=== PATIENT | male | born 1965 | race Caucasian/White ===

== ENCOUNTER 2018-08-07 10:28 | Inpatient (IN) | payer MEDICAID ==
--- NOTE | 2018-08-07 10:45 | EDPHY ---
H & P Time Seen by Provider: 08/07/18 10:43 HPI/ROS: CHIEF COMPLAINT: Altered mental status HISTORY OF PRESENT ILLNESS: The patient is brought into the emergency department by paramedics after he was found acutely altered by his brother this morning. The patient reportedly only has a history of hypertension and takes hydrochlorothiazide. There is very limited history available by EMS. The patient is unable to provide any history as he is confused and altered upon arrival. 11:00 a.m. I did obtain additional history from the patient's brother. He reportedly was having lethargy yesterday and spent most of the day in bed. The patient was conversant throughout the night however became more altered about 2: 00 a.m. In the morning. The patient does have a history of drinking heavily. The patient had not had a fever, cough, vomiting prior to today. The patient does in fact take hydrochlorothiazide as a sole medication for hypertension. REVIEW OF SYSTEMS: A comprehensive 10 point review of systems is unobtainable secondary to his altered mental status Source: Family, EMS Exam Limitations: No limitations - Medical/Surgical History PMH: Past medical history: Reported hypertension - Family History Significant Family History: No pertinent family hx - Social History Smoking Status: Unknown if ever smoked Alcohol Use: Heavy - Physical Exam Exam: General Appearance: Confused male, encephalopathic Eyes: Pupils equal and round no pallor or injection ENT, Mouth: Dry mucous membranes Respiratory: There are no retractions, lungs are clear to auscultation Cardiovascular: Regular rate and rhythm Gastrointestinal: Abdominal distension in tenderness noted diffusely Neurological: Withdrawals to pain all 4 extremities, nonverbal, unable to cooperative with cranial nerve exam Skin: Warm and dry, no rashes Musculoskeletal: Neck is supple nontender Extremities: No gross deformity Constitutional: Initial Vital Signs Temperature (C) 31 C L 08/07/18 10:58 Heart Rate 63 08/07/18 10:58 Respiratory Rate 20 08/07/18 10:58 Blood Pressure 77/39 L 08/07/18 10:58 O2 Sat (%) 99 08/07/18 10:58 O2 Delivery Mode Non-Rebreather Mask O2 (L/minute) 15 Allergies/Adverse Reactions: Unable to Assess Allergy (Verified 08/07/18 12:11) Home Medications: Medication Instructions Recorded Triamterene-Hctz 37.5-25 mg Tb 08/07/18 Medical Decision Making - Diagnostics Imaging Results: Imaging Impressions Head CT 08/07/18 10:32 Impression: Negative. 2. CT Head Without Contrast History: Altered mental status. Patient found down. Technique: Soft tissue and bone window evaluation is performed. Dose reduction techniques were utilized. Images are transferred to the 3-D workstation were a 3 -D model is created and photographed in order to exclude occult skull or facial bone fracture, not visible on axial imaging.. Findings: There is cerebral atrophy, somewhat greater than would expect for a typical 53-year-old male. There is no evidence for hemorrhage, mass lesion, acute infarction or midline shift. Ventricular size is normal and is consistent with the sulci. There is no evidence of a subdural hematoma. The ambient cistern is patent. Bone window evaluation does not show evidence of a fracture or pneumocephalus. The paranasal and mastoid sinuses and both middle ears are normally aerated. 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 Otherwise negative. Is this patient an EtOH abuser? 3. CT Abdomen and Pelvis Without Contrast History: Patient found down, altered mental status, high creatinine, hyperglycemia Technique: Ultrathin ultrafast [address] through the abdomen and pelvis without contrast. Dose reduction techniques were utilized. Findings: There is a small amount of consolidation, mucous plugging and bronchial wall thickening at the right lung base without pleural effusion or adjacent rib fracture. There is fluid in a distended distal esophagus. The stomach is not overly distended. There is subtle dirty fat within the mesentery that may represent edema or scarring. The pancreas is unremarkable. There is no evidence of a bowel obstruction. There is no free air or ascites. The liver spleen gallbladder pancreas adrenal glands kidneys and retroperitoneum are grossly normal. The urinary bladder looks normal. The abdominal aorta is normal in size. Impression: 1. Subtle mesenteric edema could possibly indicate mild pancreatitis, without direct evidence in the pancreas itself. 2. Fluid-filled distal esophagus. Might the patient's right basilar lung disease related to aspiration? Results discussed with Dr. Abdulkadir Messer at 11:13 AM. Attention: This CT examination is specifically designed to evaluate patients who are clinically suspected of having acute obstructive uropathy. This examination does not use radiographic contrast, and as such, provides only a limited evaluation of the abdomen, pelvis and retroperitoneum. If there is further clinical suspicion for pathological conditions other than obstructive uropathy, a complete CT evaluation of the abdomen and pelvis utilizing intravenous, oral, and rectal contrast should be considered. General information for patients regarding this examination can be found at [email or web address]. If you have questions or comments about this report, please contact me at [phone](hospital) or [phone] (cell). Abdomen/Pelvis CT 08/07/18 10:38 Impression: Negative. 2. CT Head Without Contrast History: Altered mental status. Patient found down. Technique: Soft tissue and bone window evaluation is performed. Dose reduction techniques were utilized. Images are transferred to the 3-D workstation were a 3 -D model is created and photographed in order to exclude occult skull or facial bone fracture, not visible on axial imaging.. Findings: There is cerebral atrophy, somewhat greater than would expect for a typical 53-year-old male. There is no evidence for hemorrhage, mass lesion, acute infarction or midline shift. Ventricular size is normal and is consistent with the sulci. There is no evidence of a subdural hematoma. The ambient cistern is patent. Bone window evaluation does not show evidence of a fracture or pneumocephalus. The paranasal and mastoid sinuses and both middle ears are normally aerated. 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 Otherwise negative. Is this patient an EtOH abuser? 3. CT Abdomen and Pelvis Without Contrast History: Patient found down, altered mental status, high creatinine, hyperglycemia Technique: Ultrathin ultrafast [address] through the abdomen and pelvis without contrast. Dose reduction techniques were utilized. Findings: There is a small amount of consolidation, mucous plugging and bronchial wall thickening at the right lung base without pleural effusion or adjacent rib fracture. There is fluid in a distended distal esophagus. The stomach is not overly distended. There is subtle dirty fat within the mesentery that may represent edema or scarring. The pancreas is unremarkable. There is no evidence of a bowel obstruction. There is no free air or ascites. The liver spleen gallbladder pancreas adrenal glands kidneys and retroperitoneum are grossly normal. The urinary bladder looks normal. The abdominal aorta is normal in size. Impression: 1. Subtle mesenteric edema could possibly indicate mild pancreatitis, without direct evidence in the pancreas itself. 2. Fluid-filled distal esophagus. Might the patient's right basilar lung disease related to aspiration? Results discussed with Dr. Abdulkadir Messer at 11:13 AM. Attention: This CT examination is specifically designed to evaluate patients who are clinically suspected of having acute obstructive uropathy. This examination does not use radiographic contrast, and as such, provides only a limited evaluation of the abdomen, pelvis and retroperitoneum. If there is further clinical suspicion for pathological conditions other than obstructive uropathy, a complete CT evaluation of the abdomen and pelvis utilizing intravenous, oral, and rectal contrast should be considered. General information for patients regarding this examination can be found at [email or web address]. If you have questions or comments about this report, please contact me at (hospital) or [phone] (cell). Chest X-Ray 08/07/18 10:46 Impression: Negative. 2. CT Head Without Contrast History: Altered mental status. Patient found down. Technique: Soft tissue and bone window evaluation is performed. Dose reduction techniques were utilized. Images are transferred to the 3-D workstation were a 3 -D model is created and photographed in order to exclude occult skull or facial bone fracture, not visible on axial imaging.. Findings: There is cerebral atrophy, somewhat greater than would expect for a typical 53-year-old male. There is no evidence for hemorrhage, mass lesion, acute infarction or midline shift. Ventricular size is normal and is consistent with the sulci. There is no evidence of a subdural hematoma. The ambient cistern is patent. Bone window evaluation does not show evidence of a fracture or pneumocephalus. The paranasal and mastoid sinuses and both middle ears are normally aerated. 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 Otherwise negative. Is this patient an EtOH abuser? 3. CT Abdomen and Pelvis Without Contrast History: Patient found down, altered mental status, high creatinine, hyperglycemia Technique: Ultrathin ultrafast [address] through the abdomen and pelvis without contrast. Dose reduction techniques were utilized. Findings: There is a small amount of consolidation, mucous plugging and bronchial wall thickening at the right lung base without pleural effusion or adjacent rib fracture. There is fluid in a distended distal esophagus. The stomach is not overly distended. There is subtle dirty fat within the mesentery that may represent edema or scarring. The pancreas is unremarkable. There is no evidence of a bowel obstruction. There is no free air or ascites. The liver spleen gallbladder pancreas adrenal glands kidneys and retroperitoneum are grossly normal. The urinary bladder looks normal. The abdominal aorta is normal in size. Impression: 1. Subtle mesenteric edema could possibly indicate mild pancreatitis, without direct evidence in the pancreas itself. 2. Fluid-filled distal esophagus. Might the patient's right basilar lung disease related to aspiration? Results discussed with Dr. Abdulkadir Messer at 11:13 AM. Attention: This CT examination is specifically designed to evaluate patients who are clinically suspected of having acute obstructive uropathy. This examination does not use radiographic contrast, and as such, provides only a limited evaluation of the abdomen, pelvis and retroperitoneum. If there is further clinical suspicion for pathological conditions other than obstructive uropathy, a complete CT evaluation of the abdomen and pelvis utilizing intravenous, oral, and rectal contrast should be considered. General information for patients regarding this examination can be found at [email or web address]. If you have questions or comments about this report, please contact me at [phone](hospital) or [phone] (cell). Procedures: Procedure: Central line placement. Indication: Septic shock, ongoing hypotension. Implied consent as the patient is unresponsive. A timeout was observed. Full maximal sterile barrier technique was used including cap, gown, sterile gloves, large sheet, hand washing and chlorhexidine prep. The area was anesthetized with 1% lidocaine. A 7 [place] triple lumen was placed in the right internal jugular using standard Seldinger technique. There were no complications. Blood return low pressure, dark blood. Patient tolerated procedure well. CXR results: Appropriate line placement, and no pneumothorax. X-ray was interpreted by myself. Radiologist interpretation is pending. The procedure was performed by myself. ED Course/Re-evaluation: The patient presents to the ED with AMS, hypotension and hyperglycemia. No additional information is attainable. The patient was taken for a STAT CT head and abdomen/pelvis. Blood cultures x2 are obtained. The patient has ongoing hypotension. A 30 milligram/kilogram bolus was obtained. The patient's initial venous lactate was greater than 4. Septic shock was declared in the patient. Repeat arterial lactate was performed by myself which was also greater than 4. Central line was placed by myself without complication. Patient will be started on pressors for ongoing hypotension. Repeat venous lactic acid has been sent at 12:15 a.m. Admission to the ICU. Consultation with Dr. Iverson patient to be admitted by Dr. Desai who evaluated the patient in the emergency department. The patient's lipase is greater than 20,000. LDH is currently pending. Angelica score on admission at least 3. Differential Diagnosis: Differential diagnosis considered includes septic shock, severe sepsis, renal failure, severe pancreatitis, dehydration Critical Care Time: Critical care time exclusive of procedures and exclusive of the PA's time was 65 minutes, performed by myself, Carlos Messer MD. Patient presents to the ED with altered mental status, hyperglycemia, severe pancreatitis and likely septic shock. The patient had blood cultures obtained. He required central line placement. The patient has been started on broad-spectrum antibiotics. The patient will require admission to the intensive care unit. - Data Points Laboratory Results: Laboratory Results 08/07/18 10:38 08/07/18 10:38 08/07/18 08/07/18 08/07/18 10:57 10:38 10:38 WBC RBC Hgb POC Hgb Hct POC Hct MCV MCH MCHC RDW Plt Count MPV Neut % (Auto) Lymph % (Auto) [place] % (Auto) Eos % (Auto) Baso % (Auto) Nucleat RBC Rel Count Absolute Neuts (auto) Absolute Lymphs (auto) Absolute Monos (auto) Absolute Eos (auto) Absolute Basos (auto) Absolute Nucleated RBC Immature Gran % Seg Neutrophils % Band Neutrophils % Lymphocytes % Monocytes % Eosinophils % Basophils % Metamyelocytes % Myelocytes % Promyelocytes % Blast Cells % Immature Gran # Absolute Seg Neuts Absolute Band Neuts Absolute Lymphocytes Absolute Monocytes Absolute Eosinophils Absolute Basophils Absolute Metamyelocyte Absolute Myelocytes Absolute Promyelocytes Absolute Plasma Cells Nucleated RBCs Absolute Blast Cells Plasma Cells % Platelet Estimate Oval Macrocytes PT 17.3 SEC H SEC (12.0-15.0) INR 1.40 H (0.83-1.16) APTT 31.1 SEC SEC (23.0-38.0) Puncture Site ARTERIAL LINE Patient Temperature 37.0 DEGREES DEGREES pCO2 27 mmHg L mmHg (34-38) pO2 169 mmHg H mmHg (65-75) Total CO2 8 mEq/L L* mEq/L (23-27) ABG pH 7.03 L* (7.35-7.45) ABG HCO3 7 mEq/L L mEq/L (22-26) ABG O2 Saturation 98 % H % (92-95) ABG Base Excess -24.1 mEq/L L mEq/L (-2.5-2.5) ABG Lactic Acid 4.2 mmol/L H mmol/L (0.5-1.6) VBG Lactic Acid POC Sodium Sodium POC Potassium Potassium POC Chloride Chloride Carbon Dioxide Anion Gap POC BUN BUN Creatinine POC Creatinine Estimated GFR Glucose POC Glucose Serum Osmolality Calcium Total Bilirubin Conjugated Bilirubin Unconjugated Bilirubin AST ALT Alkaline Phosphatase Creatine Kinase POC Troponin I Total Protein Albumin Lipase Procalcitonin Pending Acetaminophen Ethyl Alcohol 08/07/18 08/07/18 08/07/18 10:38 10:38 10:38 WBC 16.00 10^3/uL H 10^3/uL (3.80-9.50) RBC 4.59 10^6/uL 10^6/uL (4.40-6.38) Hgb 15.1 g/dL g/dL (13.7-17.5) POC Hgb Hct 45.6 % % (40.0-51.0) POC Hct MCV 99.3 fL fL (81.5-99.8) MCH 32.9 pg pg (27.9-34.1) MCHC 33.1 g/dL g/dL (32.4-36.7) RDW 13.3 % % (11.5-15.2) Plt Count 170 10^3/uL 10^3/uL (150-400) MPV 12.1 fL H fL (8.7-11.7) Neut % (Auto) Not Reported Lymph % (Auto) Not Reported [place] % (Auto) Not Reported Eos % (Auto) Not Reported Baso % (Auto) Not Reported Nucleat RBC Rel Count Not Reported Absolute Neuts (auto) Not Reported Absolute Lymphs (auto) Not Reported Absolute Monos (auto) Not Reported Absolute Eos (auto) Not Reported Absolute Basos (auto) Not Reported Absolute Nucleated RBC Not Reported Immature Gran % Not Reported Seg Neutrophils % 68.8 % % Band Neutrophils % 29.2 % % Lymphocytes % 1.0 % % Monocytes % 1.0 % % Eosinophils % 0.0 % % Basophils % 0.0 % % Metamyelocytes % 0.0 % % Myelocytes % 0.0 % % Promyelocytes % 0.0 % % Blast Cells % 0.0 % % Immature Gran # Not Reported Absolute Seg Neuts 11.01 10^/uL H 10^/uL (1.70-6.50) Absolute Band Neuts 4.67 10^3/uL H 10^3/uL (0.00-0.70) Absolute Lymphocytes 0.16 10^3/uL L 10^3/uL (1.00-3.00) Absolute Monocytes 0.16 10^3/uL L 10^3/uL (0.30-0.80) Absolute Eosinophils 0.00 10^3/uL L 10^3/uL (0.03-0.40) Absolute Basophils 0.00 10^3/uL L 10^3/uL (0.02-0.10) Absolute Metamyelocyte 0.00 10^3/mL 10^3/mL (0.00-0.00) Absolute Myelocytes 0.00 10^3/mL 10^3/mL (0.00-0.00) Absolute Promyelocytes 0.00 10^3/uL 10^3/uL (0.00-0.00) Absolute Plasma Cells 0.00 10^3/uL 10^3/uL (0.00-0.00) Nucleated RBCs 0 /100 WBC /100 WBC (0-0) Absolute Blast Cells 0.00 10^3/uL 10^3/uL (0.00-0.00) Plasma Cells % 0.0 % % Platelet Estimate ADEQUATE (ADEQ) Oval Macrocytes 1+ H PT INR APTT Puncture Site Patient Temperature pCO2 pO2 Total CO2 ABG pH ABG HCO3 ABG O2 Saturation ABG Base Excess ABG Lactic Acid VBG Lactic Acid 4.1 mmol/L H mmol/L (0.7-2.1) POC Sodium Sodium 137 mEq/L mEq/L (135-145) POC Potassium Potassium 4.1 mEq/L mEq/L (3.3-5.0) POC Chloride Chloride 89 mEq/L L mEq/L (97-110) Carbon Dioxide 9 mEq/l L* mEq/l (22-31) Anion Gap 39 mEq/L H mEq/L (6-14) POC BUN BUN 90 mg/dL H mg/dL (7-23) Creatinine 5.3 mg/dL H mg/dL (0.7-1.3) POC Creatinine Estimated GFR 11 Glucose 1318 mg/dL H* mg/dL (70-100) POC Glucose Serum Osmolality Calcium 10.6 mg/dL H mg/dL (8.5-10.4) Total Bilirubin 2.5 mg/dL H mg/dL (0.1-1.4) Conjugated Bilirubin 1.9 mg/dL H mg/dL (0.0-0.5) Unconjugated Bilirubin 0.6 mg/dL mg/dL (0.0-1.1) AST 64 IU/L H IU/L (17-59) ALT 60 IU/L IU/L (21-72) Alkaline Phosphatase 132 IU/L H IU/L (38-126) Creatine Kinase POC Troponin I Total Protein 7.6 g/dL g/dL (6.3-8.2) Albumin 4.5 g/dL g/dL (3.5-5.0) Lipase > 54733 IU/L H IU/L (23-300) Procalcitonin Acetaminophen < 10 mcg/mL L mcg/mL (10-30) Ethyl Alcohol < 10 mg/dL mg/dL (0-10) 08/07/18 08/07/18 08/07/18 10:36 10:35 10:23 WBC RBC Hgb POC Hgb 16.3 gm/dL gm/dL (13.7-17.5) Hct POC Hct 48 % % (40-51) MCV MCH MCHC RDW Plt Count MPV Neut % (Auto) Lymph % (Auto) [place] % (Auto) Eos % (Auto) Baso % (Auto) Nucleat RBC Rel Count Absolute Neuts (auto) Absolute Lymphs (auto) Absolute Monos (auto) Absolute Eos (auto) Absolute Basos (auto) Absolute Nucleated RBC Immature Gran % Seg Neutrophils % Band Neutrophils % Lymphocytes % Monocytes % Eosinophils % Basophils % Metamyelocytes % Myelocytes % Promyelocytes % Blast Cells % Immature Gran # Absolute Seg Neuts Absolute Band Neuts Absolute Lymphocytes Absolute Monocytes Absolute Eosinophils Absolute Basophils Absolute Metamyelocyte Absolute Myelocytes Absolute Promyelocytes Absolute Plasma Cells Nucleated RBCs Absolute Blast Cells Plasma Cells % Platelet Estimate Oval Macrocytes PT INR APTT Puncture Site Patient Temperature pCO2 pO2 Total CO2 ABG pH ABG HCO3 ABG O2 Saturation ABG Base Excess ABG Lactic Acid VBG Lactic Acid POC Sodium 134 mEq/L L mEq/L (135-145) Sodium POC Potassium 3.6 mEq/L mEq/L (3.3-5.0) Potassium POC Chloride 97 mEq/L mEq/L (97-110) Chloride Carbon Dioxide Anion Gap POC BUN 101 mg/dL H* mg/dL (7-23) BUN Creatinine POC Creatinine 4.7 mg/dL H mg/dL (0.7-1.3) Estimated GFR Glucose POC Glucose > 700 mg/dL H* mg/dL (70-100) Serum Osmolality Pending Calcium Total Bilirubin Conjugated Bilirubin Unconjugated Bilirubin AST ALT Alkaline Phosphatase Creatine Kinase Pending POC Troponin I 0.01 ng/mL ng/mL (0.00-0.08) Total Protein Albumin Lipase Procalcitonin Acetaminophen Ethyl Alcohol Medications Given: Sodium Chloride (Ns) 2,700 mls @ 0 mls/hr IV CONT JIGNA PRN Reason: Wide Open Stop: 02/03/19 11:29 Last Admin: 08/07/18 11:31 Dose: 2,700 mls Discontinued Medications Piperacillin/Tazobactam/Dextrose (Zosyn 3.375 Gm (Premix)) 50 mls @ 100 mls/hr IV EDNOW ONE PRN Reason: Protocol Stop: 08/07/18 11:51 Last Admin: 08/07/18 12:03 Dose: 50 mls Ketamine HCl (Ketamine) 50 mg IV ONCE ONE Stop: 08/07/18 11:36 Last Admin: 08/07/18 11:40 Dose: 50 mg Point of Care Test Results: Chemistry 08/07/18 08/07/18 10:36 10:35 POC Sodium 134 mEq/L L mEq/L (135-145) POC Potassium 3.6 mEq/L mEq/L (3.3-5.0) POC Chloride 97 mEq/L mEq/L (97-110) POC BUN 101 mg/dL H* mg/dL (7-23) POC Creatinine 4.7 mg/dL H mg/dL (0.7-1.3) POC Glucose > 700 mg/dL H* mg/dL (70-100) POC Troponin I 0.01 ng/mL ng/mL (0.00-0.08) ISTAT H&H 08/07/18 10:35 POC Hgb 16.3 gm/dL gm/dL (13.7-17.5) POC Hct 48 % % (40-51) Departure - Departure Disposition: [facility] Acute Clinical Impression: Pancreatitis, acute, Septic shock, Acute renal failure, Aspiration pneumonia Condition: Critical
[2018-08-07 10:59] LABS: PLATELET COUNT 170 10^3/uL (150-400)
[2018-08-07 11:06] LABS: INR 1.4 (0.83-1.16); PROTIME(PATIENT) 17.3 SEC (12.0-15.0)
[2018-08-07] MEDS ORDERED: LIDOCAINE 2% JELLY 20 ML (UROJECT) ONE (11:21)
[2018-08-07] MEDS ORDERED: PIPERACILLIN/TAZO 3.375 GM/DEX 50 ML IV ONE (11:22)
[2018-08-07] MEDS ORDERED: NS 2,700 ML IV SCH (11:30)
[2018-08-07] MEDS ORDERED: KETAMINE 200 MG/20 ML VIAL IV ONE (11:35)
[2018-08-07] MEDS ORDERED: KETAMINE 500 MG/10 ML VIAL ONE (11:35)
[2018-08-07] MEDS ORDERED: ACETAMINOPHEN 325 MG TAB PO PRN (12:07)
[2018-08-07] MEDS ORDERED: NOREPINEPHRINE BITARTRATE 4 MG in NS 500 ML IV ONE (12:36)
[2018-08-07] MEDS ORDERED: NS 1,000 ML IV ONE ×3 (12:40→13:30)
[2018-08-07 12:41] LABS: CREATINE KINASE 140 IU/L (0-224)
[2018-08-07] MEDS: NOREPINEPHRINE BITARTRATE 4 MG in NS 500 ML IV SCH ×2 (12:48→12:54)
[2018-08-07] MEDS ORDERED: FLUMAZENIL 0.5 MG/5 ML MDV IVP PRN (12:49)
[2018-08-07] MEDS ORDERED: LORazepam 2 MG/ML INJ IVP PRN (12:49)
--- NOTE | 2018-08-07 12:54 | CPEKG ---
Test Reason : OPEN Blood Pressure : / mmHG Vent. Rate : 063 BPM Atrial Rate : 064 BPM P-R Int : 164 ms QRS Dur : 104 ms QT Int : 506 ms P-R-T Axes : 066 034 024 degrees QTc Int : 519 ms Sinus rhythm Borderline T wave abnormalities Prolonged QT interval Confirmed by Carlos Messer ([id number]) on 08/07/2018 12:53:54 PM Referred By: Confirmed By:Carlos Messer
--- NOTE | 2018-08-07 12:56 | PDGENHP ---
History and Physical - Chief Complaint altered mental status - History of Present Illness 53yo M with history of HTN, daily etoh use who was brought to ED after brother called EMS due to patient not responding. Unable to obtain history from patient as he is obtunded. History obtained from patient's brother and sister who are at bedside. He had a mild dry cough and some constipation but was in usual state of health yesterday morning when his brother left for work. Upon brother returning home, patient seemed sleepy but was still responding appropriately. Brother checked on him overnight and he seemed to be a little confused and then he was unable to awake him this morning. Brother states he drinks 6 beers/day but unaware of withdrawal in the past. No know illicit drugs. Family only aware of diagnosis of hypertension. He hasn't been hospitalized since he was a child. In the ED, he was found to be in shock with elevated creatinine and lactate as well as altered mental status and severe hypothermia. A central venous catheter was placed and septic shock protocol initiated. He is being admitted to the ICU for further work up. Case discussed with ED physician Abdulkadir Messer. History Information - Allergies/Home Medication List Allergies/Adverse Reactions: Unable to Assess Allergy (Verified 08/07/18 12:11) Home Medications: Triamterene-Hctz 37.5-25 mg Tb 08/07/18 [Last Taken Unknown] I have personally reviewed and updated: family history, medical history, social history, surgical history - Past Medical History Additional medical history: hypertension - Surgical History Reports: no pertinent surgical hx - Family History Additional family history: diabetes on father's side - Social History Tobacco Use: Chew Alcohol Use: Heavy (6 beers/day) Drug Use: None Additional social history: Lives with brother in [place], unemployed, 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 Physical Exam Physical Exam: Temp Pulse Resp BP Pulse Ox 32.8 C L 66 24 H 79/44 L 99 08/07/18 12:12 08/07/18 12:12 08/07/18 12:12 08/07/18 12:12 08/07/18 12:12 O2 (L/minute) 10 Eyes: PERRL, anicteric sclera Ears, Nose, Mouth, Throat: no oral mucosal ulcers, dry mucous membranes Cardiovascular: regular rate and rhythym, no murmur, rub, or gallop, edema ( trace pitting edema bilateral ankles), No JVD Respiratory: respiratory distress (abdominal breathing, tachypneic), other (no wheezing or rhonchi anterolaterally) Gastrointestinal: normoactive bowel sounds, tenderness (winces with palpation diffusely), distension, No guarding, No rebound Genitourinary: miranda in urethra Skin: warm, normal color, no rashes or abrasions, no fluctuance, no induration, No mottled Neurologic: other (Intermittently opens eyes, not alert or oriented, moving all extremities) Psychiatric: encephalopathic Lab Data & Imaging Review 08/07/18 14:30 08/07/18 15:30 WBC 16.00 10^3/uL (3.80-9.50) H 08/07/18 10:38 RBC 4.59 10^6/uL (4.40-6.38) 08/07/18 10:38 Hgb 15.1 g/dL (13.7-17.5) 08/07/18 10:38 POC Hgb 16.3 gm/dL (13.7-17.5) 08/07/18 10:35 Hct 45.6 % (40.0-51.0) 08/07/18 10:38 POC Hct 48 % (40-51) 08/07/18 10:35 MCV 99.3 fL (81.5-99.8) 08/07/18 10:38 MCH 32.9 pg (27.9-34.1) 08/07/18 10:38 MCHC 33.1 g/dL (32.4-36.7) 08/07/18 10:38 RDW 13.3 % (11.5-15.2) 08/07/18 10:38 Plt Count 170 10^3/uL (150-400) 08/07/18 10:38 MPV 12.1 fL (8.7-11.7) H 08/07/18 10:38 Neut % (Auto) Not Reported 08/07/18 10:38 Lymph % (Auto) Not Reported 08/07/18 10:38 [place] % (Auto) Not Reported 08/07/18 10:38 Eos % (Auto) Not Reported 08/07/18 10:38 Baso % (Auto) Not Reported 08/07/18 10:38 Nucleat RBC Rel Count Not Reported 08/07/18 10:38 Absolute Neuts (auto) Not Reported 08/07/18 10:38 Absolute Lymphs (auto) Not Reported 08/07/18 10:38 Absolute Monos (auto) Not Reported 08/07/18 10:38 Absolute Eos (auto) Not Reported 08/07/18 10:38 Absolute Basos (auto) Not Reported 08/07/18 10:38 Absolute Nucleated RBC Not Reported 08/07/18 10:38 Immature Gran % Not Reported 08/07/18 10:38 Seg Neutrophils % 68.8 % 08/07/18 10:38 Band Neutrophils % 29.2 % 08/07/18 10:38 Lymphocytes % 1.0 % 08/07/18 10:38 Monocytes % 1.0 % 08/07/18 10:38 Eosinophils % 0.0 % 08/07/18 10:38 Basophils % 0.0 % 08/07/18 10:38 Metamyelocytes % 0.0 % 08/07/18 10:38 Myelocytes % 0.0 % 08/07/18 10:38 Promyelocytes % 0.0 % 08/07/18 10:38 Blast Cells % 0.0 % 08/07/18 10:38 Immature Gran # Not Reported 08/07/18 10:38 Absolute Seg Neuts 11.01 10^/uL (1.70-6.50) H 08/07/18 10:38 Absolute Band Neuts 4.67 10^3/uL (0.00-0.70) H 08/07/18 10:38 Absolute Lymphocytes 0.16 10^3/uL (1.00-3.00) L 08/07/18 10:38 Absolute Monocytes 0.16 10^3/uL (0.30-0.80) L 08/07/18 10:38 Absolute Eosinophils 0.00 10^3/uL (0.03-0.40) L 08/07/18 10:38 Absolute Basophils 0.00 10^3/uL (0.02-0.10) L 08/07/18 10:38 Absolute Metamyelocyte 0.00 10^3/mL (0.00-0.00) 08/07/18 10:38 Absolute Myelocytes 0.00 10^3/mL (0.00-0.00) 08/07/18 10:38 Absolute Promyelocytes 0.00 10^3/uL (0.00-0.00) 08/07/18 10:38 Absolute Plasma Cells 0.00 10^3/uL (0.00-0.00) 08/07/18 10:38 Nucleated RBCs 0 /100 WBC (0-0) 08/07/18 10:38 Absolute Blast Cells 0.00 10^3/uL (0.00-0.00) 08/07/18 10:38 Plasma Cells % 0.0 % 08/07/18 10:38 Platelet Estimate ADEQUATE (ADEQ) 08/07/18 10:38 Oval Macrocytes 1+ H 08/07/18 10:38 PT 17.3 SEC (12.0-15.0) H 08/07/18 10:38 INR 1.40 (0.83-1.16) H 08/07/18 10:38 APTT 31.1 SEC (23.0-38.0) 08/07/18 10:38 Puncture Site ARTERIAL LINE 08/07/18 10:57 Patient Temperature 37.0 DEGREES 08/07/18 10:57 pCO2 27 mmHg (34-38) L 08/07/18 10:57 pO2 169 mmHg (65-75) H 08/07/18 10:57 Total CO2 8 mEq/L (23-27) L* 08/07/18 10:57 ABG pH 7.03 (7.35-7.45) L* 08/07/18 10:57 ABG HCO3 7 mEq/L (22-26) L 08/07/18 10:57 ABG O2 Saturation 98 % (92-95) H 08/07/18 10:57 ABG Base Excess -24.1 mEq/L (-2.5-2.5) L 08/07/18 10:57 ABG Lactic Acid 4.2 mmol/L (0.5-1.6) H 08/07/18 10:57 VBG Lactic Acid 3.8 mmol/L (0.7-2.1) H 08/07/18 12:12 POC Sodium 134 mEq/L (135-145) L 08/07/18 10:35 Sodium 137 mEq/L (135-145) 08/07/18 10:38 POC Potassium 3.6 mEq/L (3.3-5.0) 08/07/18 10:35 Potassium 4.1 mEq/L (3.3-5.0) 08/07/18 10:38 POC Chloride 97 mEq/L (97-110) 08/07/18 10:35 Chloride 89 mEq/L (97-110) L 08/07/18 10:38 Carbon Dioxide 9 mEq/l (22-31) L* 08/07/18 10:38 Anion Gap 39 mEq/L (6-14) H 08/07/18 10:38 POC BUN 101 mg/dL (7-23) H* 08/07/18 10:35 BUN 90 mg/dL (7-23) H 08/07/18 10:38 Creatinine 5.3 mg/dL (0.7-1.3) H 08/07/18 10:38 POC Creatinine 4.7 mg/dL (0.7-1.3) H 08/07/18 10:35 Estimated GFR 11 08/07/18 10:38 Glucose 1318 mg/dL (70-100) H* 08/07/18 10:38 POC Glucose > 700 mg/dL (70-100) H* 08/07/18 10:35 Calcium 10.6 mg/dL (8.5-10.4) H 08/07/18 10:38 Total Bilirubin 2.5 mg/dL (0.1-1.4) H 08/07/18 10:38 Conjugated Bilirubin 1.9 mg/dL (0.0-0.5) H 08/07/18 10:38 Unconjugated Bilirubin 0.6 mg/dL (0.0-1.1) 08/07/18 10:38 AST 64 IU/L (17-59) H 08/07/18 10:38 ALT 60 IU/L (21-72) 08/07/18 10:38 Alkaline Phosphatase 132 IU/L (38-126) H 08/07/18 10:38 Lactate Dehydrogenase 529 IU/L (313-618) 08/07/18 10:23 Creatine Kinase 140 IU/L (0-224) 08/07/18 10:23 POC Troponin I 0.01 ng/mL (0.00-0.08) 08/07/18 10:36 Total Protein 7.6 g/dL (6.3-8.2) 08/07/18 10:38 Albumin 4.5 g/dL (3.5-5.0) 08/07/18 10:38 Lipase > 48711 IU/L (23-300) H 08/07/18 10:38 Urine Color LT. YELLOW 08/07/18 11: Urine Appearance HAZY 08/07/18 11:27 Urine pH 5.5 (5.0-7.5) 08/07/18 11:27 Ur Specific [place] 1.020 (1.002-1.030) 08/07/18 11: Urine Protein NEGATIVE (NEGATIVE) 08/07/18 11: Urine Ketones 1+ (NEGATIVE) H 08/07/18 11: Urine Blood 3+ (NEGATIVE) H 08/07/18 11:27 Urine Nitrate NEGATIVE (NEGATIVE) 08/07/18 11: Urine Bilirubin NEGATIVE (NEGATIVE) 08/07/18 11:27 Urine Urobilinogen 0.2 EU (0.2-1.0) 08/07/18 11:27 Ur Leukocyte Esterase NEGATIVE (NEGATIVE) 08/07/18 11: Urine RBC 3-5 /hpf (0-3) H 08/07/18 11:27 Urine WBC 0-1 /hpf (0-3) 08/07/18 11:27 Ur Epithelial Cells NONE SEEN /lpf (NONE-1+) 08/07/18 11: Amorphous Sediment 1+ /hpf (NONE-1+) 08/07/18 11:27 Urine Glucose 3+ (NEGATIVE) H 08/07/18 11:27 Acetaminophen < 10 mcg/mL (10-30) L 08/07/18 10:38 Ethyl Alcohol < 10 mg/dL (0-10) 08/07/18 10:38 Visualized and Interpreted Chest x-ray results: Yes Visualized and Interpreted imaging results: Yes Interpretation: Non-contrasted head CT: no acute findings to explain encephalopathy. CXR: poor inspiratory effort, no focal infiltrate, unable to discern if left pleural effusion (interpreted by me). CT abd/pelvis without contrast: subtle mesenteric edema could possibly indicate pancreatitis without direct evidence in the pancreas itself, fluid filled distal esophagus ( interpreted by radiology) Visualized and Interpreted EKG results: Yes EKG additional interpertation: ECG: sinus rhythm, good R wave progression, no acute ischemic ST-T changes, no [place] waves (interpreted by me) Assessment & Plan Assessment: 53yo M with heavy etoh use presents obtunded found to have severe acute pancreatitis complicated by distributive shock, respiratory failure, renal failure, and severe acidosis including DKA. Plan: #Distributive shock: Related to pancreatitis and less likely infectious process. - s/p 30ml/kg NS - Getting additional fluids per DKA protocol, monitor CVP and assess fluid responsiveness with nicom - Vasopressors to keep MAP>65, currently on norepi and vasopressin - Trend lactate, UOP #Severe acute pancreatitis: With multiorgan failure/dysfunction. No necrotizing features on CT but this was without contrast. Likely etoh related. - RUQ ultrasound to rule out biliary etiology #Acute hypoxemic respiratory failure: Requiring 15->4L oxymask. 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 - Serial blood gas, low threshold for intubation if tiring - Continue pip-tazo to cover for aspiration (has leukocytosis w/bandemia) - Monitor closely for worsening, at risk for ARDS #Acute renal failure: Prerenal vs ATN in setting of shock. - Renal consulted, no indication for HD at this time - Check renal ultrasound for obstruction #Anion gap metabolic acidosis: Combo of lactic acidosis and ketoacidosis. - IVF, pressors, insulin gtt - No indication for bicarbonate gtt #Severe hyperglycemia with DKA: A1c 12%. No known diagnosis of diabetes prior to this. - DKA protocol with insulin gtt, frequent electrolyte monitoring #Hypokalemia: - Cautious repletion per protocol in setting of insulin gtt and correction of acidosis #Coagulopathy: INR mildly elevated. Concern for beginnings of DIC. No e/o bleeding currently - Check fibrinogen, monitor platelets #Hypothermia: Suspect related to pancreatitis as well. - Warming blanket in place #EtOH abuse: - CIWA protocol, IV thiamine Diet: NPO VTE ppx: SQH Code: full per discussion with brother Dispo: Admit as inpatient to ICU.
[2018-08-07] MEDS ORDERED: INSULIN REGULAR HUMAN 100 UNIT/ML UNIT ONE ×2 (13:02→16:48)
[2018-08-07] MEDS ORDERED: PROTOCOL POTASSIUM 1 DOSE MISC PRN (13:07)
[2018-08-07] MEDS ORDERED: PROTOCOL K PHOSPHATE 1 DOSE IV PRN (13:07)
[2018-08-07] MEDS ORDERED: PROTOCOL CALCIUM 1 DOSE IV PRN (13:07)
[2018-08-07] MEDS ORDERED: PROTOCOL MAGNESIUM 1 DOSE IV PRN (13:07)
[2018-08-07] MEDS ORDERED: INSULIN REGULAR HUMAN 100 UNIT/ML UNIT IV ONE (13:15)
[2018-08-07] MEDS ORDERED: RN:ENTER POTASSIUM ICU PROTOCOL ON WORKLIST MISC ONE (13:30)
[2018-08-07] MEDS ORDERED: D10W 1,000 ML IV SCH (13:30)
[2018-08-07] MEDS ORDERED: VASOPRESSIN/DEXTROSE 250 ML IV SCH (13:30)
[2018-08-07] MEDS ORDERED: D10W 1,000 ML IV PRN (13:30)
[2018-08-07] MEDS ORDERED: D50W 25 GM/50 ML SYR IVP PRN (13:30)
[2018-08-07] MEDS ORDERED: VASOPRESSIN 25 UNIT in NS 250 ML IV SCH (13:30)
[2018-08-07] MEDS ORDERED: NS 500 ML IV ONE ×2 (13:30)
[2018-08-07] MEDS ORDERED: NS 1,000 ML IV SCH (13:30)
[2018-08-07] MEDS: POTASSIUM Cl (KCl) 100 ML IV SCH ×3 (13:31→15:14)
[2018-08-07] MEDS: INSULIN REGULAR HUMAN 100 UNIT in NS 100 ML IV SCH ×2 (13:31→21:41)
[2018-08-07] MEDS: THIAMINE HCL 500 MG in NS 100 ML IV SCH ×2 (13:35→13:36)
--- NOTE | 2018-08-07 13:42 | PDMN ---
Medical Necessity [place] [facility] [id number] renal failure: 3 days; pt found down, obtunded severe pancreatitis complicated by distributive shock, resp failure, renal failure, severe acidosis, severe hyperglycemia, hypothermia, ETOH abuse. anticipate > 2 MN for further eval, monitoring and tx of above
[2018-08-07] MEDS: HEPARIN 5,000 UNIT/0.5 ML INJ SC SCH ×2 (14:46→21:40)
[2018-08-07 14:50] LABS: PLATELET COUNT 112 10^3/uL (150-400)
[2018-08-07 15:06] LABS: INR 1.68 (0.83-1.16); PROTIME(PATIENT) 19.9 SEC (12.0-15.0)
--- NOTE | 2018-08-07 15:19 | PDCONSULT ---
[employer]ist Note: Assessment/Plan: UTE: unknown baseline, likely prerenal vs ATN in setting of severe pancreatitis and shock along with volume depletion. - No immediate plans for HD, can consider if acidemia does not respond to IVFs and insulin. - Agree with IVFs. - Avoid hypotension and nephrotoxins. - Strict I/Os and daily weights. - Will continue to monitor closely. Shock: pt on pressors and IVFs. Acidemia: pt with anion gap acidosis from lactic acidosis and ketoacidosis. - Pt getting IVFs. - BP support with IVFs and pressors. - Pt now on insulin ggt. - No evidence for giving bicarb at this time. - Will continue to monitor closely. Hypokalemia: would be cautious with replacement in setting of insulin ggt and UTE, will require frequent labs to help guide replacement. Thank you for the interesting consult. Nephrology will continue to follow, please call if you have any additional questions or concerns. H & P Stated Complaint: found unresponsive at home. High blood sugar Time Seen by Provider: 08/07/18 10:43 HPI/ROS: HPI: Mr. Medrano is a 53 yo M with h/o HTN and alcohol use who presented to ER today after being found unresponsive at home. Pt was seen awake and alert early yesterday am, was noted to have spent the whole day yesterday in bed, poor oral intake. This am he was found confused and unresponsive, brought in. Glucose markedly elevated at 1318, acidotic, Cr up to 5.3 with unknown baseline , hypotensive, lipase >20,000. Pt started on IVFs, Levophed and vasopressin with improvement in BP. Pt has no known h/o diabetes. Holden catheter placed with 800ml immediate output. ROS: unable to obtain 2/2 clinical condition Source: Family, RN/MD - Personal History Current Tetanus/Diphtheria Vaccine: Unsure Current Tetanus Diphtheria and Acellular Pertussis (TDAP): Unsure - Medical/Surgical History Hx Asthma: No Hx Chronic Respiratory Disease: No Hx Diabetes: No Hx Cardiac Disease: No Hx Renal Disease: No Hx Cirrhosis: No Hx Alcoholism: Yes Hx HIV/AIDS: No Hx Splenectomy or Spleen Trauma: No Other PMH: HTN - Family History Significant Family History: No pertinent family hx - Social History Smoking Status: Unknown if ever smoked Alcohol Use: Heavy - Physical Exam Exam: General: sedated, no acute distress Eyes: EOMI, PERRL OP: Clear, dry mucous membranes Neck: supple, ,no thyromegaly CV: RRR, no edema BLE Resp: CTA bilat, labored respirations on oxymask Abd: Soft, NT Neuro: CN II-XII grossly intact, no asterixis Skin: C/D/I, no rash Constitutional: Initial Vital Signs Temperature (C) 31 C L 08/07/18 10:58 Heart Rate 63 08/07/18 10:58 Respiratory Rate 20 08/07/18 10:58 Blood Pressure 77/39 L 08/07/18 10:58 O2 Sat (%) 99 08/07/18 10:58 O2 Delivery Mode Non-Rebreather Mask O2 (L/minute) 15 Allergies/Adverse Reactions: Unable to Assess Allergy (Verified 08/07/18 12:11) Home Medications: Medication Instructions Recorded Triamterene-Hctz 37.5-25 mg Tb 08/07/18 Lab and Imaging 08/07/18 14:30 08/07/18 10:38 WBC 16.37 10^3/uL (3.80-9.50) H 08/07/18 14:30 RBC 3.91 10^6/uL (4.40-6.38) L 08/07/18 14:30 Hgb 12.9 g/dL (13.7-17.5) L 08/07/18 14:30 POC Hgb 16.3 gm/dL (13.7-17.5) 08/07/18 10:35 Hct 37.0 % (40.0-51.0) L 08/07/18 14:30 POC Hct 48 % (40-51) 08/07/18 10:35 MCV 94.6 fL (81.5-99.8) 08/07/18 14:30 MCH 33.0 pg (27.9-34.1) 08/07/18 14:30 MCHC 34.9 g/dL (32.4-36.7) 08/07/18 14:30 RDW 12.9 % (11.5-15.2) 08/07/18 14:30 Plt Count 112 10^3/uL (150-400) L 08/07/18 14:30 MPV 11.1 fL (8.7-11.7) 08/07/18 14:30 Neut % (Auto) 89.0 % (39.3-74.2) H 08/07/18 14:30 Lymph % (Auto) 5.6 % (15.0-45.0) L 08/07/18 14:30 [place] % (Auto) 3.2 % (4.5-13.0) L 08/07/18 14:30 Eos % (Auto) 0.0 % (0.6-7.6) L 08/07/18 14:30 Baso % (Auto) 0.4 % (0.3-1.7) 08/07/18 14:30 Nucleat RBC Rel Count 0.0 % (0.0-0.2) 08/07/18 14:30 Absolute Neuts (auto) 14.57 10^3/uL (1.70-6.50) H 08/07/18 14:30 Absolute Lymphs (auto) 0.92 10^3/uL (1.00-3.00) L 08/07/18 14:30 Absolute Monos (auto) 0.53 10^3/uL (0.30-0.80) 08/07/18 14:30 Absolute Eos (auto) 0.00 10^3/uL (0.03-0.40) L 08/07/18 14:30 Absolute Basos (auto) 0.06 10^3/uL (0.02-0.10) 08/07/18 14:30 Absolute Nucleated RBC 0.00 10^3/uL (0-0.01) 08/07/18 14:30 Immature Gran % 1.8 % (0.0-1.1) H 08/07/18 14:30 Seg Neutrophils % 68.8 % 08/07/18 10:38 Band Neutrophils % 29.2 % 08/07/18 10:38 Lymphocytes % 1.0 % 08/07/18 10:38 Monocytes % 1.0 % 08/07/18 10:38 Eosinophils % 0.0 % 08/07/18 10:38 Basophils % 0.0 % 08/07/18 10:38 Metamyelocytes % 0.0 % 08/07/18 10:38 Myelocytes % 0.0 % 08/07/18 10:38 Promyelocytes % 0.0 % 08/07/18 10:38 Blast Cells % 0.0 % 08/07/18 10:38 Immature Gran # 0.29 10^3/uL (0.00-0.10) H 08/07/18 14:30 Absolute Seg Neuts 11.01 10^/uL (1.70-6.50) H 08/07/18 10:38 Absolute Band Neuts 4.67 10^3/uL (0.00-0.70) H 08/07/18 10:38 Absolute Lymphocytes 0.16 10^3/uL (1.00-3.00) L 08/07/18 10:38 Absolute Monocytes 0.16 10^3/uL (0.30-0.80) L 08/07/18 10:38 Absolute Eosinophils 0.00 10^3/uL (0.03-0.40) L 08/07/18 10:38 Absolute Basophils 0.00 10^3/uL (0.02-0.10) L 08/07/18 10:38 Absolute Metamyelocyte 0.00 10^3/mL (0.00-0.00) 08/07/18 10:38 Absolute Myelocytes 0.00 10^3/mL (0.00-0.00) 08/07/18 10:38 Absolute Promyelocytes 0.00 10^3/uL (0.00-0.00) 08/07/18 10:38 Absolute Plasma Cells 0.00 10^3/uL (0.00-0.00) 08/07/18 10:38 Nucleated RBCs 0 /100 WBC (0-0) 08/07/18 10:38 Absolute Blast Cells 0.00 10^3/uL (0.00-0.00) 08/07/18 10:38 Plasma Cells % 0.0 % 08/07/18 10:38 Platelet Estimate ADEQUATE (ADEQ) 08/07/18 10:38 Oval Macrocytes 1+ H 08/07/18 10:38 PT 19.9 SEC (12.0-15.0) H 08/07/18 14:30 INR 1.68 (0.83-1.16) H 08/07/18 14:30 APTT 32.9 SEC (23.0-38.0) 08/07/18 14:30 Puncture Site NONE GIVEN 08/07/18 14:30 Patient Temperature 37.0 DEGREES 08/07/18 14:30 pCO2 27 mmHg (34-38) L 08/07/18 10:57 pO2 169 mmHg (65-75) H 08/07/18 10:57 Total CO2 8 mEq/L (23-27) L* 08/07/18 10:57 ABG pH 7.03 (7.35-7.45) L* 08/07/18 10:57 ABG HCO3 7 mEq/L (22-26) L 08/07/18 10:57 ABG O2 Saturation 98 % (92-95) H 08/07/18 10:57 ABG Base Excess -24.1 mEq/L (-2.5-2.5) L 08/07/18 10:57 ABG Lactic Acid 4.2 mmol/L (0.5-1.6) H 08/07/18 10:57 VBG pH 7.07 (7.31-7.42) L 08/07/18 14:30 VBG HCO3 8 mEQ/L (22-26) L 08/07/18 14:30 VBG Total CO2 9 mEq/L (21-27) L 08/07/18 14:30 VBG O2 Saturation 98 % (65-75) H 08/07/18 14:30 VBG Base Excess -22.0 mEq/L (-2.5-2.5) L 08/07/18 14:30 VBG Lactic Acid 2.5 mmol/L (0.7-2.1) H 08/07/18 14:30 Mixed VBG pCO2 28 mmHg (40-44) L 08/07/18 14:30 Mixed VBG pO2 126 mmHG (35-40) H 08/07/18 14:30 Total O2 Concentration Cancelled 08/07/18 13:20 O2 Concentration % Cancelled 08/07/18 13:20 Respiration Rate Cancelled 08/07/18 13:20 Actual Respiration Rate Cancelled 08/07/18 13:20 Set Respiration Rate Cancelled 08/07/18 13:20 SIMV Cancelled 08/07/18 13:20 Assist Control Cancelled 08/07/18 13:20 Vent Rate Cancelled 08/07/18 13:20 Expiratory Pressure Cancelled 08/07/18 13:20 Tidal Volume Cancelled 08/07/18 13:20 End Tidal CO2 Cancelled 08/07/18 13:20 PEEP Cancelled 08/07/18 13:20 Inspiratory Pressure Cancelled 08/07/18 13:20 Pressure Support Cancelled 08/07/18 13:20 Pressure Control Cancelled 08/07/18 13:20 CPAP Cancelled 08/07/18 13:20 BiPAP Cancelled 08/07/18 13:20 Mode BiPAP Cancelled 08/07/18 13:20 Inspir/Expir Ratio Cancelled 08/07/18 13:20 POC Sodium 134 mEq/L (135-145) L 08/07/18 10:35 Sodium 137 mEq/L (135-145) 08/07/18 10:38 POC Potassium 3.6 mEq/L (3.3-5.0) 08/07/18 10:35 Potassium 4.1 mEq/L (3.3-5.0) 08/07/18 10:38 POC Chloride 97 mEq/L (97-110) 08/07/18 10:35 Chloride 89 mEq/L (97-110) L 08/07/18 10:38 Carbon Dioxide 9 mEq/l (22-31) L* 08/07/18 10:38 Anion Gap 39 mEq/L (6-14) H 08/07/18 10:38 POC BUN 101 mg/dL (7-23) H* 08/07/18 10:35 BUN 90 mg/dL (7-23) H 08/07/18 10:38 Creatinine 5.3 mg/dL (0.7-1.3) H 08/07/18 10:38 POC Creatinine 4.7 mg/dL (0.7-1.3) H 08/07/18 10:35 Estimated GFR 11 08/07/18 10:38 Glucose 1318 mg/dL (70-100) H* 08/07/18 10:38 POC Glucose > 600 mg/dL (70-100) H* 08/07/18 14:35 Serum Osmolality 426 mosmo/kg (280-297) H 08/07/18 10:23 Calcium 10.6 mg/dL (8.5-10.4) H 08/07/18 10:38 Ionized Calcium 1.28 MMOL/L (1.12-1.30) 08/07/18 13:20 Phosphorus 8.8 mg/dL (2.5-4.5) H 08/07/18 13:00 Magnesium 3.1 mg/dL (1.6-2.3) H 08/07/18 13:00 Total Bilirubin 2.5 mg/dL (0.1-1.4) H 08/07/18 10:38 Conjugated Bilirubin 1.9 mg/dL (0.0-0.5) H 08/07/18 10:38 Unconjugated Bilirubin 0.6 mg/dL (0.0-1.1) 08/07/18 10:38 AST 64 IU/L (17-59) H 08/07/18 10:38 ALT 60 IU/L (21-72) 08/07/18 10:38 Alkaline Phosphatase 132 IU/L (38-126) H 08/07/18 10:38 Lactate Dehydrogenase 529 IU/L (313-618) 08/07/18 10:23 Creatine Kinase 140 IU/L (0-224) 08/07/18 10:23 POC Troponin I 0.01 ng/mL (0.00-0.08) 08/07/18 10:36 Total Protein 7.6 g/dL (6.3-8.2) 08/07/18 10:38 Albumin 4.5 g/dL (3.5-5.0) 08/07/18 10:38 Lipase > 42818 IU/L (23-300) H 08/07/18 10:38 Beta-Hydroxybutyrate 10.40 mmol/L (0.02-0.27) H 08/07/18 13:00 Procalcitonin 1.16 ng/mL (0.02-0.10) H 08/07/18 10:38 Urine Color LT. YELLOW 08/07/18 11: Urine Appearance HAZY 08/07/18 11: Urine pH 5.5 (5.0-7.5) 08/07/18 11: Ur Specific [place] 1.020 (1.002-1.030) 08/07/18 11: Urine Protein NEGATIVE (NEGATIVE) 08/07/18 11: Urine Ketones 1+ (NEGATIVE) H 08/07/18 11: Urine Blood 3+ (NEGATIVE) H 08/07/18 11:27 Urine Nitrate NEGATIVE (NEGATIVE) 08/07/18 11:27 Urine Bilirubin NEGATIVE (NEGATIVE) 08/07/18 11:27 Urine Urobilinogen 0.2 EU (0.2-1.0) 08/07/18 11:27 Ur Leukocyte Esterase NEGATIVE (NEGATIVE) 08/07/18 11:27 Urine RBC 3-5 /hpf (0-3) H 08/07/18 11:27 Urine WBC 0-1 /hpf (0-3) 08/07/18 11:27 Ur Epithelial Cells NONE SEEN /lpf (NONE-1+) 08/07/18 11:27 Amorphous Sediment 1+ /hpf (NONE-1+) 08/07/18 11:27 Ur Random Creatinine 57.5 mg/dL 08/07/18 11:27 Ur Random Sodium 11 mEq/L (30-90) L 08/07/18 11:27 Urine Glucose 3+ (NEGATIVE) H 08/07/18 11:27 Urine Opiates Screen NEGATIVE ng/mL (NEGATIVE) 08/07/18 11: Acetaminophen < 10 mcg/mL (10-30) L 08/07/18 10:38 Urine Barbiturates NEGATIVE ng/mL (NEGATIVE) 08/07/18 11:27 Ur Phencyclidine Scrn NEGATIVE ng/mL (NEGATIVE) 08/07/18 11:27 Ur Amphetamines Screen NEGATIVE ng/mL (NEGATIVE) 08/07/18 11:27 U Benzodiazepines Scrn NEGATIVE ng/mL (NEGATIVE) 08/07/18 11:27 Urine Cocaine Screen NEGATIVE ng/mL (NEGATIVE) 08/07/18 11:27 U Marijuana (THC) Screen NEGATIVE ng/mL (NEGATIVE) 08/07/18 11:27 Ethyl Alcohol < 10 mg/dL (0-10) 08/07/18 10:38
[2018-08-07] MEDS ORDERED: ALBUMIN 5% 500 ML IV ONE (15:24)
[2018-08-07] MEDS ORDERED: INSULIN REGULAR HUMAN 100 UNIT/ML UNIT IVP ONE ×2 (15:36→16:00)
[2018-08-07] MEDS: POTASSIUM Cl (KCl) 50 ML IV SCH ×5 (16:36→23:20)
[2018-08-07] MEDS: NOREPINEPHRINE BITARTRATE 16 MG in NS 250 ML IV SCH (17:26)
[2018-08-07] MEDS ORDERED: D5W IV ONE (17:31)
[2018-08-07] MEDS ORDERED: FOMEPIZOLE IV ONE (17:31)
--- NOTE | 2018-08-07 17:31 | GCON ---
PULMONARY/CRITICAL CARE CONSULTATION DATE OF CONSULTATION: 08/07/2018 REFERRING PHYSICIAN: Leander Desai MD REASON FOR REFERRAL: Evaluation and management of severe metabolic acidosis and obtundation. HISTORY: The patient is a 53-year-old male with a history of hypertension and alcohol use who was ap parently in his usual state of health when he was last seen by his family yesterday, at which time he was alert and awake but was feeling a bit poorly. He apparently spent yesterday in bed with limited oral intake. Today, he was found confused and unresponsive and was brought into the emergency depar tment. He has been unresponsive since presentation. Evaluation in the emergency department found mu ltiple metabolic abnormalities including severe acidosis and a glucose of 1300 with a lipase of over 20,000. He has been given 3 L of IV fluids with a 4th liter hanging and has been started on Levophed and now vasopressin in order to maintain blood pressure. PAST MEDICAL HISTORY: 1. Hypertension. 2. Alcohol use. MEDICATIONS: Hydrochlorothiazide. SOCIAL HISTORY: Heavy alcohol use. He lives up in [facility]. FAMILY HISTORY: Unremarkable. REVIEW OF SYSTEMS: Unobtainable. PHYSICAL EXAMINATION: GENERAL: The patient is obtunded with Kussmaul respirations. He moans to nox ious stimuli. VITAL SIGNS: Blood pressure is 139/45 with a mean arterial pressure of 65 on norepine phrine at 14 and vasopressin of 0.04. Heart rate is 89. His temperature at admission was 31, now up to 35.7. His oxygen saturations are 96% on 3 L. A CVP is 11. HEENT: Normocephalic and atraumatic . No icterus. NECK: No adenopathy. Trachea is midline. CHEST: Clear to auscultation. CARDIAC: Regular rate and rhythm without murmur. ABDOMEN: Soft, nontender. Bowel sounds are present. EXTR EMITIES: No clubbing, cyanosis, or edema. NEURO: The patient is obtunded. He withdraws extremitie s to noxious stimuli. White blood count is 16.4 with 29% bands. Initial creatinine was 5.3, now down to 4.6 on recheck. P otassium is 2.7, down from 3.6. Glucose is 975, down from 1318. Lipase is greater than 20,000. INR is 1.7. An arterial blood gas shows a pH of 7.07 with a CO2 of 28 and a bicarbonate of 8. His pH h as improved from 7.0 with an identical bicarbonate a few hours earlier. Urinalysis is unremarkable. Urine tox screen is negative. A chest x-ray shows no infiltrate. The IJ is in good position. Imag es reviewed by me. The CT scan of the abdomen shows subtle mesenteric edema and a fluid-filled esoph jaiden. A lactate level is 2.5, down from 4.1 at admission. Anion gap is 26, down from 39 at admissio n. ASSESSMENT: 1. Severe metabolic acidosis. This is likely a combination of diabetic ketoacidosis as well as poss ible sepsis. Pancreatitis with distributive shock could also contribute. 2. Acute renal insufficiency. This is likely due to distributive shock/acute tubular necrosis. The patient has had urine output now that a Holden has been placed with 800 cc out. 3. Hypothermia. This is being corrected with external warming. 4. Pancreatitis. This is likely due to alcohol. A stone is also possible but less likely. RECOMMENDATIONS: Continue IV fluids with sepsis protocol. Blood cultures have been done and Zosyn h as been started. The patient will be started on insulin IV per DKA protocol. I gave an additional 2 0 unit bolus and we will give another 10 units now in addition to the drip rate. I will give some al bumin to try to further improve her blood pressure and intravascular volume given the persistent hypo tension on pressors. An ultrasound will be ordered to evaluate for stone disease. I do not think th e patient requires intubation right now as he is hyperventilating fairly well and his pH has come up just a bit. I expect that this will continue to improve if the majority of his acidosis is due to DK A. If he is unable to keep up or starts to tire out with regard to his respiratory status, he will b e intubated. 95 minutes of critical care time with repeated evaluations for respiratory failure, hypotension, and persistent, severe metabolic acidosis. /[id number]/MODL
[2018-08-07] MEDS: PIPERACILLIN/TAZO 2.25 GM/DEX 50 ML IV SCH ×2 (17:35→23:19)
[2018-08-07] MEDS ORDERED: NA BICARBONATE 50 MEQ/50 ML VIAL IV ONE (23:00)
[2018-08-07] MEDS ORDERED: SODIUM BICARBONATE 50 MEQ in 1/2 NS 1,000 ML IV SCH (23:30)
[2018-08-08] MEDS: POTASSIUM Cl (KCl) 50 ML IV SCH ×12 (00:30→15:11)
[2018-08-08] MEDS ORDERED: POTASSIUM Cl (KCl) 50 ML IV SCH (02:36)
[2018-08-08] MEDS ORDERED: FOMEPIZOLE IV SCH (06:00)
[2018-08-08] MEDS ORDERED: D5W IV SCH (06:00)
[2018-08-08] MEDS: PIPERACILLIN/TAZO 2.25 GM/DEX 50 ML IV SCH ×3 (06:41→18:34)
[2018-08-08] MEDS: HEPARIN 5,000 UNIT/0.5 ML INJ SC SCH ×2 (06:41→10:34)
[2018-08-08 06:45] LABS: PLATELET COUNT 66 10^3/uL (150-400)
[2018-08-08] MEDS ORDERED: SODIUM BICARBONATE 50 MEQ in 1/2 NS 1,000 ML IV SCH (08:30)
--- NOTE | 2018-08-08 08:57 | HOSPPROG ---
Hospitalist Progress Note Assessment/Plan: 53yo M with heavy etoh use presents obtunded found to have severe acute pancreatitis complicated by distributive shock, respiratory failure, renal failure, and severe acidosis. He is gradually improving. #Acute hypoxemic respiratory failure: On 8L via oxymask. At risk for ARDS. - Continue pip-tazo for cover aspiration (RLL infiltrate, bandemia), CXR this AM #Distributive shock: Off vasopressors. Volume resuscitated. Hemodynamics stable. Related to pancreatitis. - Monitor UOP #Anion gap metabolic acidosis: Significantly improved. Combo of lactic acidosis and DKA/ketoacidosis. He did have a very high osmolar gap on admit. - DKA protocol with insulin gtt, not eating - Discontinue fomepizole as clinical picture not consistent with methanol/ ethylene glycol poisoning; levels sent #Hypernatremia: Received lots of normal saline. - D10W, monitor closely #Acute metabolic encephalopathy: Still altered, not following commands. CT head negative. #Severe acute pancreatitis: EtOH related. With multiorgan failure/dysfunction. No necrotizing features on CT but this was without contrast. - RUQ ultrasound without gallstones #Acute renal failure: Prerenal/ATN in setting of shock. - Renal consulted, no indication for HD at this time, avoid nephrotoxins, renally dose meds #Hypokalemia: - Repleting #Coagulopathy, thrombocytopenia: Suspect consumptive in setting of acute inflammatory process. No e/o bleeding currently - Fibrinogen ok, monitor platelets daily #Hypothermia: Rewarmed. Suspect related to pancreatitis. #EtOH abuse: Per family hasn't had drink in a week or so. - Discontinue CIWA protocol, continue IV thiamine Diet: NPO VTE ppx: SCDs until platelets stabilize, then restart S[facility] GI ppx: famotidine Code: full per discussion with brother/sister Dispo: Continue inpatient, remains critically ill in ICU. Subjective: Continued to be tachypneic overnight, not following commands. Acidosis improved. O2 needs up to 8L this AM from 4L when I left yesterday. He is off pressors now as of 5am this morning. Objective: Vital Signs Temp Pulse Resp BP Pulse Ox 37.3 C 99 39 H 108/45 L 97 08/08/18 08:00 08/08/18 08:00 08/08/18 08:00 08/08/18 08:00 08/08/18 08:00 Laboratory Results 08/08/18 06:10 08/08/18 08:00 08/07/18 08/08/18 08/09/18 05:59 05:59 05:59 Intake Total 54823.2 Output Total 3800 Balance 6658.2 PT 19.9 SEC (12.0-15.0) H 08/07/18 14:30 INR 1.68 (0.83-1.16) H 08/07/18 14:30 - Physical Exam Constitutional: uncomfortable, other (intermittently moaning) Eyes: PERRL, anicteric sclera, EOMI Ears, Nose, Mouth, Throat: moist mucous membranes, hearing normal, ears appear normal, no oral mucosal ulcers Cardiovascular: no murmur, rub, or gallop, tachycardia, No JVD, No edema Respiratory: respiratory distress (tachypneic), rhonchi (anterolaterally) Gastrointestinal: normoactive bowel sounds, tenderness (diffusely), distension, No rebound Genitourinary: miranda in urethra Skin: no rashes or abrasions, no fluctuance, no induration Neurologic: other (not alert or oriented, moving all extremities) Psychiatric: encephalopathic ICD10 Worksheet Patient Problems: Problems Problem Status Onset Acute renal failure Acute Aspiration pneumonia Acute Pancreatitis, acute Acute Septic shock Acute
--- NOTE | 2018-08-08 09:15 | PDINTPN ---
Pattern Changer And Repairer Progress Note Assessment/Plan: Assessment: DKA: Improved, with falling b-hydroxybutyrate, normal glucose. Still with mild AG metabolic acidosis. On insulin at 12 units/hour, HCO3 gtt. Sepsis: Improved, off pressors. Lactate still mildly elevated, still has elevated WBC/bandemia. On Zosyn Pancreatitis: ? due to EtOH. Hypernatremia: Persists, was hypernatremic on admission when corrected for hyperglycemia. UTE: Cr improved but unchanged last 12 hours. Good urine output. Hypothermia: Resolved Hypoxemia: Still needing supplemental oxygen. Likely due to pancreatitis with fluid resuscitation. Hypokalemia: Persists. Hypophosphatemia: remains low Plan: Change to 1/2 NS, Continue Insulin gtt/D10, KCl replacement. May be able to transition to SQ insulin. Check CXR, WBC, follow ABG, lytes, Lipase. Continue Zosyn, fomepazole. 40 minutes CC time addressing ongoing metabolic derangements. 08/08/18 09:30 Subjective: More movement, but not following commands. Objective: Vital Signs Temp Pulse Resp BP Pulse Ox 37.3 C 99 39 H 108/45 L 97 08/08/18 08:00 08/08/18 08:00 08/08/18 08:00 08/08/18 08:00 08/08/18 08:00 Laboratory Results 08/08/18 06:10 08/08/18 08:00 08/07/18 08/08/18 08/09/18 05:59 05:59 05:59 Intake Total 53389.2 250 Output Total 3800 325 Balance 6658.2 -75 PT 19.9 SEC (12.0-15.0) H 08/07/18 14:30 INR 1.68 (0.83-1.16) H 08/07/18 14:30 Laboratory Tests 08/08/18 08/08/18 08/08/18 02:15 04:00 08:00 VBG pH 7.35 VBG HCO3 17 L VBG Total CO2 18 L VBG O2 Saturation 86 H Mixed VBG pCO2 31 L Mixed VBG pO2 50 H Beta-Hydroxybutyrate 0.87 H 0.68 H 08/08/18 08:00 VBG pH VBG HCO3 VBG Total CO2 VBG O2 Saturation Mixed VBG pCO2 Mixed VBG pO2 Beta-Hydroxybutyrate 0.39 H Laboratory Tests 08/08/18 08/08/18 05:00 06:10 Ionized Calcium 1.19 Phosphorus 1.1 L Physical Exam - Physical Exam General Appearance: mild distress, No alert EENT: normal ENT inspection Neck: normal inspection Respiratory: No respiratory distress (tachypneic) Cardiac/Chest: regular rate, rhythm, No edema Abdomen: normal bowel sounds, non-tender Skin: normal color, warm/dry Extremities: normal inspection Neuro/Psych: No alert, No motor weakness ICD10 Worksheet Patient Problems: Problems Problem Status Onset Acute renal failure Acute Aspiration pneumonia Acute Pancreatitis, acute Acute Septic shock Acute
--- NOTE | 2018-08-08 09:36 | ASMTCASEMG ---
Living Arrangements What is your living Answers: With Other Relative(s) arrangement? Who do you live with? Type Of Residence What kind of residence do Answers: House you live in? Type of Residence Facility Name Notes: Patient lives with his brother currently. Discharge Plan Comments Coordination Status Comments Notes: Patient is a 53yo single male who lives with his brother currently and is unemployed. Patient is a heavy etoh user and presents obtunded and found to have severe acute pancreatitis complicated by distributive shock, respiratory failure and severe acidosis including DKA. PHYS THER ordered. D/C plan TBD. CM will follow. Date Signed: 08/08/2018 09:35 AM Electronically Signed By:Jamilah Arango LCSW
--- NOTE | 2018-08-08 09:53 | SOAPPROG ---
SOAP Progress Note Assessment/Plan: Assessment/Plan: UTE: unknown baseline, likely prerenal vs ATN in setting of severe pancreatiti sand shock along with volume depletion. Cr down from 5.3 to 3.9 with IVFs and BP support, good UOP and lyte tonya. - No need for HD at this time. - Continue IVFs, now switched to hypotonic fluids. - Will continue to monitor. - Avoid hypotension and nephrotoxins. Shock: pt on pressors and IVFs. Acidemia: pt with anion gap acidosis from lactic acidosis and ketoacidosis. Also noted to have an osmolar gap on presentation but this was in the setting of severe hyperglycemia. - Will recheck osmolar gap. - Acidemia improved with insulin and IVFs. - Will continue to monitor. - No need for additional bicarb at this time. Hypokalemia: being replaced as needed per protocol, would continue to monitor q4h today. Hypernatremia: pt was hypernatremic on presentation due to volume depletion, when corrected for hyperglycemia. Na currently 155. - Continue hypotonic fluids. - Would continue to monitor q4h for now. - Would aim for no lower than 147 by tomorrow am. Subjective: No acute events overnight. Pt remains on pressors, BP stable with pressors and IVFs. He is still very confused and not following commands but more restless now. He is having good UOP. Objective: Vital Signs Temp Pulse Resp BP Pulse Ox 37.3 C 103 H 34 H 120/55 L 96 08/08/18 08:00 08/08/18 09:00 08/08/18 09:00 08/08/18 09:00 08/08/18 09:00 Laboratory Results 08/08/18 06:10 08/08/18 08:00 08/07/18 08/08/18 08/09/18 05:59 05:59 05:59 Intake Total 68244.2 250 Output Total 3800 325 Balance 6658.2 -75 PT 19.9 SEC (12.0-15.0) H 08/07/18 14:30 INR 1.68 (0.83-1.16) H 08/07/18 14:30 General: mild distress OP: dry mucous membranes CV: RRR Resp: CTA bilat on oxymask Abd: Soft, mildly distended, mildly diffusely TTP Ext: no edema Neuro: CN II-XII grossly intact ICD10 Worksheet Patient Problems: Problems Problem Status Onset Acute renal failure Acute Aspiration pneumonia Acute Pancreatitis, acute Acute Septic shock Acute
[2018-08-08] MEDS: FAMOTIDINE 20 MG/NACL 50 ML IV SCH ×2 (11:02→23:14)
[2018-08-08] MEDS ORDERED: K PHOS 20 MMOL in D5W 250 ML IV ONE (12:00)
[2018-08-08] MEDS: 1/2 NS 1,000 ML IV SCH (15:13)
--- NOTE | 2018-08-08 21:38 | HOSPPROG ---
Hospitalist Progress Note Assessment/Plan: CRITICAL CARE NOTE, > 45 MINS CRITICAL CARE TIME called to see pt for worsening resp distress he came in yesterday obtunded w acidosis and felt then to have DKA but has had acute hypoxemia during entire stay along w acute renal failure, along with pancreatitis and worsening thrombocytopenia nurse notes he is looking worse in terms of mentation and resp issues tonight compared to last night he had a moderate amount of blood from nose when recently suctioning was attempted review of chart shows tachypnea in 30s throughout most of his stay he initially was on 8o L O2 but has been down to 4 L today On my exam pt is comatose his skin is warm and dry loud gurgling sounds pre resps, dilute red blood is flowing from R nare resps are appearing inadequate lungs with diffuse loud sounds of airway fluids abd soft w no signs of tenderness review of prior xray shows some diffuse interstitial abnormality and ? vascular plethora by my reading stat cxr now with little change from this am abg done tonight shows , after this am Decision made to intubate pt, Dr Yarbrough has now performed successful intubation xry pending for placement vent orders entered Objective: Vital Signs Temp Pulse Resp BP Pulse Ox 37.2 C 93 35 H 126/53 H 91 L 08/08/18 19:00 08/08/18 19:00 08/08/18 19:00 08/08/18 19:00 08/08/18 19:00 Laboratory Results 08/08/18 06:10 08/08/18 19:50 08/07/18 08/08/18 08/09/18 06:59 06:59 06:59 Intake Total 58311.2 4173.6 Output Total 3800 1400 Balance 6658.2 2773.6 PT 19.9 SEC (12.0-15.0) H 08/07/18 14:30 INR 1.68 (0.83-1.16) H 08/07/18 14:30 ICD10 Worksheet Patient Problems: Problems Problem Status Onset Acute renal failure Acute Aspiration pneumonia Acute Pancreatitis, acute Acute Septic shock Acute
[2018-08-08 21:56] LABS: PLATELET COUNT 54 10^3/uL (150-400)
[2018-08-08 22:09] LABS: PROTIME(PATIENT) 18.3 SEC (12.0-15.0)
[2018-08-08] MEDS ORDERED: SUCCINYLCHOLINE CHLORIDE 200 MG/10 ML SYR IVP ONE ×2 (22:25→22:30)
[2018-08-08] MEDS ORDERED: ETOMIDATE 40 MG/20 ML INJ ONE (22:25)
[2018-08-08] MEDS ORDERED: ETOMIDATE 40 MG/20 ML INJ IV ONE (22:30)
[2018-08-08 22:36] LABS: PLATELET COUNT 54 10^3/uL (150-400)
[2018-08-08] MEDS: fentaNYL/NACL 100 ML IV SCH (23:14)
[2018-08-08] MEDS: PROPOFOL/EMULSION 100 ML IV SCH (23:14)
[2018-08-09] MEDS: PIPERACILLIN/TAZO 2.25 GM/DEX 50 ML IV SCH ×4 (00:06→18:15)
--- NOTE | 2018-08-09 01:18 | EDPHY ---
Inpatient Procedure Narrative: 2300: 08/08/18: I was asked by the hospitalist service to come and evaluate the patient for possible need for intubation for respiratory failure. Upon arrival to the ICU room the patient was unresponsive. With sonorous respirations. Tachypnea. Given that the patient was unresponsive, and not protecting his airway. Decision was made for emergent intubation. Intubation Procedure: Reason for intubation respiratory failure. RSI medications were used. 20 mg of IV etomidate. 120 mg of IV succinylcholine. Patient was placed on non-rebreather and high-flow nasal cannula for pre oxygenation. The patient had 100% pulse ox at time of intubation. Direct visualization of the cords were obtained with a glide scope. 7.5 endotracheal tube was placed directly through the cords. This was confirmed with humidified air through the endotracheal tube. Additionally capnography for change. Additionally bilateral breath sounds. Chest x-ray was obtained post intubation. Endotracheal tube in good position. There were no complications during intubation. Patient remained stable. Critical Care: Total Critical Care Time Spent Managing this Patient: 20 Minutes. This time was spent Exclusively with this patient. This Care was exclusive of procedures. The Organ System/life at risk was respiratory failure This Patient was in Critical Condition because respiratory failure
[2018-08-09] MEDS ORDERED: POTASSIUM Cl (KCl) 50 ML IV ONE ×2 (02:00→02:30)
[2018-08-09] MEDS: INSULIN REGULAR HUMAN 100 UNIT in NS 100 ML IV SCH (02:53)
[2018-08-09] MEDS: PROPOFOL/EMULSION 100 ML IV SCH ×2 (04:10→13:31)
[2018-08-09 06:29] LABS: PLATELET COUNT 45 10^3/uL (150-400)
[2018-08-09] MEDS: POTASSIUM Cl (KCl) 50 ML IV SCH ×6 (07:12→15:06)
[2018-08-09] MEDS ORDERED: NS 1,000 ML IV ONE (07:19)
[2018-08-09] MEDS: CHLORHEXIDINE GLUCONATE 15 ML UDL PO SCH ×2 (09:04→21:00)
[2018-08-09] MEDS: FAMOTIDINE 20 MG/NACL 50 ML IV SCH (09:04)
[2018-08-09] MEDS: THIAMINE HCL 500 MG in NS 100 ML IV SCH (09:04)
--- NOTE | 2018-08-09 09:29 | PDINTPN ---
University Tutor Progress Note Assessment/Plan: Assessment: DKA: Resolved.On insulin at 7 units/hour, D10. Sepsis: Improved, off pressors. Afebrile, WBC nearly down to normal. Blood cultures negative. On Zosyn Pancreatitis: ? due to EtOH. Lipase down. Metabolic acidosis: Initially had DKA, now with NAG metabolic acidosis, little change last 24 hours. Likely due to UTE. Hypernatremia: Improved. Was hypernatremic on admission when corrected for hyperglycemia. UTE: Cr up a bit. ? initial drop partly due to dilution from fluid resuscitation. Good urine output. Hypothermia: Resolved Respiratory Failure: Intubated 08/08 evening due to respiratory acidosis and hypoxemia. Now doing well on 40% O2. Hypokalemia: Persists. Hypophosphatemia: remains low Plan: Place feeding tube, start TF, stop D10. Can probably change insulin to SQ. Follow ABG, lytes, Lipase. Continue Zosyn. D/C fomepazole. 35 minutes CC time addressing ongoing metabolic derangements, respiratory failure. 08/09/18 09:34 Subjective: Intubated, sedated Objective: Vital Signs Temp Pulse Resp BP Pulse Ox 36.9 C 89 21 H 110/64 100 08/09/18 09:00 08/09/18 09:00 08/09/18 09:00 08/09/18 09:00 08/09/18 09:00 Laboratory Results 08/09/18 05:32 08/09/18 08:15 08/08/18 08/09/18 08/10/18 05:59 05:59 05:59 Intake Total 68166.2 6135.6 Output Total 3800 2050 Balance 6658.2 4085.6 PT 18.3 SEC (12.0-15.0) H 08/08/18 21:40 INR 1.50 (0.83-1.16) H 08/08/18 21:40 Laboratory Tests 08/07/18 08/09/18 08/09/18 18:00 05:32 05:57 pCO2 23 L pO2 95 H Total CO2 15 L ABG pH 7.41 O2 Concentration % 40 Set Respiration Rate 20 Assist Control YES Tidal Volume 600 PEEP 5 Ionized Calcium 1.13 Lipase 1879 H Ethylene Glycol <3 Propylene Glycol <10 Methyl Alcohol, Quant <5 Physical Exam - Physical Exam General Appearance: other (sedated, moves all extremities to noxious stimuli) EENT: normal ENT inspection Neck: normal inspection Respiratory: lungs clear Cardiac/Chest: regular rate, rhythm, No edema Abdomen: non-tender, soft Skin: normal color, warm/dry Extremities: normal inspection Neuro/Psych: No alert, No motor weakness ICD10 Worksheet Patient Problems: Problems Problem Status Onset Acute renal failure Acute Aspiration pneumonia Acute Pancreatitis, acute Acute Septic shock Acute
[2018-08-09] MEDS ORDERED: K PHOS 15 MMOL in D5W 250 ML IV ONE (12:00)
[2018-08-09] MEDS: 1/2 NS 1,000 ML IV SCH (13:07)
--- NOTE | 2018-08-09 13:34 | ASMTCMCOM ---
CM Note CM Note Notes: CM met with pt's siblings, Maria G Victor and Juan Luis Medrano in order to create a proxy. Maria G Victor will be the pt's proxy. Maria G's phone number is [phone]. Date Signed: 08/09/2018 01:33 PM Electronically Signed By:Leanna Miller
--- NOTE | 2018-08-09 13:39 | SOAPPROG ---
SOAP Progress Note Assessment/Plan: Assessment: UTE, not oliguric, no urgent SOLE LAYER needs, but probably won't tolerate another renal insult hypernatremia, mild, continue therapies and follow hypokalemia, supplements are underway low CO2, pH is fine at 7.41, continue to follow, doesn't appear to need bicrb at this point Acute pancreatitis with MSOF Plan: continue supportive care family at bedside, all questions answered to their satisfaction follow K, Na, creat and pH 08/09/18 13:33 Subjective: not communicative on the vent Objective: Vital Signs Temp Pulse Resp BP Pulse Ox 36.8 C 77 19 95/45 L 100 08/09/18 12:00 08/09/18 12:00 08/09/18 12:00 08/09/18 12:00 08/09/18 12:00 Laboratory Results 08/09/18 05:32 08/09/18 12:00 08/08/18 08/09/18 08/10/18 05:59 05:59 05:59 Intake Total 66467.2 6135.6 Output Total 3800 0 Balance 6658.2 4085.6 PT 18.3 SEC (12.0-15.0) H 08/08/18 21:40 INR 1.50 (0.83-1.16) H 08/08/18 21:40 Physical Exam - Physical Exam General Appearance: other (sedated on vent) Respiratory: other (coarse bs on vent) Cardiac/Chest: other (reg, no rub) Abdomen: other (quiet, mild dist) Neuro/Psych: other (sedated) ICD10 Worksheet Patient Problems: Problems Problem Status Onset Acute renal failure Acute Aspiration pneumonia Acute Pancreatitis, acute Acute Septic shock Acute
[2018-08-09] MEDS ORDERED: INSULIN GLARGINE 100 UNITS/ML UNIT SC SCH (14:15)
--- NOTE | 2018-08-09 15:07 | HOSPPROG ---
Hospitalist Progress Note Assessment/Plan: Subjective Follow-up on acute hypoxic respiratory failure and acute kidney injury. Patient was intubated last evening. I reviewed his case with his family who was present at bedside today as well as with Dr. Mcpherson. The patient's family stated he was drinking heavily up until about 2 weeks before he came into the hospital. They are not aware of any underlying chronic kidney disease. They do say that he has hypertension and was being treated for that as an outpatient. Objective Vitals as detailed below Exam General-sedated, intermittently with spontaneous movement of extremities and neck Heart-regular rate and rhythm no murmurs Lungs-Clear to auscultation with normal respiratory effort Abdomen-soft nontender nondistended normal bowel sounds Extremities-trace pitting edema, compression devices in place Skin-no concerning skin rashes noted Labs as detailed below Assessment and plan Acute hypoxic respiratory failure-patient was intubated last evening. Continue per Pulmonary medicine's recommendations. Pancreatitis-patient had elevated lipase at 1879. Continue supportive measures and bowel rest. Likely related to recent heavy use of alcohol. Diabetic ketoacidosis-this is a new diagnosis for the patient. His hemoglobin A1c was 12%. Continue with insulin drip and DKA protocol. Overall improved as beta hydroxybutyrate is within normal limits. Long-acting insulin and regular insulin sliding scale started this afternoon. Acute kidney injury-some improvement from hemoglobin at presentation which was 5.3. He is making some urine. There is no known history of chronic kidney disease. Continue vasopressor support and IV fluids and recheck again tomorrow morning. Shock-continue with vasopressin and Levophed. Wean as able. Suspecting secondary to severe acidosis and volume depletion from ketoacidosis. Hypokalemia-continue replacement with protocol. Hypernatremia-stable at 147. Increase fluid rate to 150 mL/hour with D5 half normal saline. Leukocytosis-resolved with white blood cell count trending from 13-9. Patient is on empiric Zosyn presently. Thrombocytopenia-continue to trend. Overnight with decline from [id number]. DVT prophylaxis-no heparin or Lovenox in light of thrombocytopenia. Disposition-patient is needing ongoing ICU level of care. Objective: Vital Signs Temp Pulse Resp BP Pulse Ox 36.8 C 77 20 94/50 L 100 08/09/18 14:00 08/09/18 14:00 08/09/18 14:00 08/09/18 14:00 08/09/18 14:00 Laboratory Results 08/09/18 05:32 08/09/18 12:00 08/08/18 08/09/18 08/10/18 05:59 05:59 05:59 Intake Total 25760.2 6135.6 Output Total 3800 2050 Balance 6658.2 4085.6 PT 18.3 SEC (12.0-15.0) H 08/08/18 21:40 INR 1.50 (0.83-1.16) H 08/08/18 21:40 ICD10 Worksheet Patient Problems: Problems Problem Status Onset Acute renal failure Acute Aspiration pneumonia Acute Pancreatitis, acute Acute Septic shock Acute
[2018-08-09] MEDS: INSULIN REGULAR HUMAN 100 UNIT/ML UNIT SC SCH ×3 (15:15→20:57)
[2018-08-09] MEDS: DEXMEDETOMIDINE HCL 400 MCG in NS 100 ML IV SCH ×2 (15:15→22:00)
[2018-08-09] MEDS: POTASSIUM Cl (KCl) 20 MEQ in 1/2 NS 1,000 ML IV SCH (15:15)
[2018-08-09] MEDS: NOREPINEPHRINE BITARTRATE 16 MG in NS 250 ML IV SCH (19:29)
[2018-08-10] MEDS: PIPERACILLIN/TAZO 2.25 GM/DEX 50 ML IV SCH ×5 (00:30→23:58)
[2018-08-10] MEDS: POTASSIUM Cl (KCl) 20 MEQ in 1/2 NS 1,000 ML IV SCH ×2 (00:31→06:27)
[2018-08-10] MEDS: INSULIN REGULAR HUMAN 100 UNIT/ML UNIT SC SCH ×4 (00:31→11:45)
[2018-08-10] MEDS ORDERED: D5W IV ONE (07:30)
[2018-08-10] MEDS ORDERED: SODIUM PHOS IV ONE (07:30)
[2018-08-10] MEDS: DEXMEDETOMIDINE HCL 400 MCG in NS 100 ML IV SCH ×4 (07:50→18:44)
[2018-08-10] MEDS: FAMOTIDINE 20 MG/NACL 50 ML IV SCH (08:09)
[2018-08-10] MEDS: CHLORHEXIDINE GLUCONATE 15 ML UDL PO SCH ×2 (08:13→22:13)
[2018-08-10] MEDS: THIAMINE HCL 500 MG in NS 100 ML IV SCH (08:13)
[2018-08-10] MEDS ORDERED: INSULIN GLARGINE 100 UNITS/ML UNIT SC SCH ×2 (08:30→11:58)
[2018-08-10 09:03] LABS: PLATELET COUNT 57 10^3/uL (150-400)
--- NOTE | 2018-08-10 11:06 | PDINTPN ---
Quality Worker Progress Note Assessment/Plan: Assessment: DKA: Resolved.Changed to Lantus/SSI with tube feeds 08/09, now BSs elevated. Sepsis: Improved, off pressors. Afebrile, WBC nearly down to normal. Blood cultures negative. On Zosyn Pancreatitis: ? due to EtOH. Lipase down 08/09. Metabolic acidosis: Initially had DKA, now with NAG metabolic acidosis, which is worsening. This argues against DKA as the cause, ? all due to UTE. Hypernatremia: Resolved UTE: Cr high but stable. Good urine output. Hypothermia: Resolved Respiratory Failure: Intubated 08/08 evening due to respiratory acidosis and hypoxemia. Now doing well on 40% O2. High VE to compensate for metabolic acidosis. Hypokalemia: Resolved Hypophosphatemia: remains low Plan: Increase insulin. Follow ABG, lytes, Lipase. Will check b- hydroxybutyrate and lactate, although I expect them to be low with a normal AG. Will check HgbA1c. Increase Lantus. May need to restart insulin gtt if unable to get BSs controlled. Continue Zosyn. Later: b-hydroxybutyrate normal 40 minutes CC time addressing worsening metabolic acidosis, hyperglycemia, respiratory failure. 08/10/18 11:59 Subjective: Not responding to questions. Objective: Vital Signs Temp Pulse Resp BP Pulse Ox 38.2 C 63 19 109/58 L 99 08/10/18 10:00 08/10/18 10:00 08/10/18 10:00 08/10/18 10:00 08/10/18 10:00 Laboratory Results 08/10/18 08:40 08/10/18 05:10 08/09/18 08/10/18 08/11/18 05:59 05:59 05:59 Intake Total 6135.6 5404.5 Output Total 2050 1560 Balance 4085.6 3844.5 PT 18.3 SEC (12.0-15.0) H 08/08/18 21:40 INR 1.50 (0.83-1.16) H 08/08/18 21:40 Laboratory Tests 08/10/18 05:08 pCO2 18 L* pO2 121 H ABG pH 7.40 ABG HCO3 11 L O2 Concentration % 40 Respiration Rate 26 Assist Control YES Tidal Volume 600 PEEP 5 Laboratory Tests 08/10/18 10:40 Beta-Hydroxybutyrate 0.10 Physical Exam - Physical Exam General Appearance: other (agitated, not following commands or making purposeful movements.) EENT: normal ENT inspection Neck: normal inspection Respiratory: lungs clear, normal breath sounds Cardiac/Chest: regular rate, rhythm, No edema Abdomen: normal bowel sounds, non-tender Skin: normal color, warm/dry Extremities: normal inspection Neuro/Psych: No alert, No normal mood/affect, No oriented x 3, No motor weakness ICD10 Worksheet Patient Problems: Problems Problem Status Onset Acute renal failure Acute Aspiration pneumonia Acute Pancreatitis, acute Acute Septic shock Acute
[2018-08-10] MEDS: fentaNYL/NACL 100 ML IV SCH (11:22)
[2018-08-10] MEDS ORDERED: INSULIN GLARGINE 100 UNITS/ML UNIT SC ONE (11:57)
[2018-08-10] MEDS ORDERED: K PHOS 15 MMOL in D5W 250 ML IV ONE (12:00)
[2018-08-10] MEDS ORDERED: ACETAMINOPHEN 325 MG TAB TUBE PRN (12:00)
[2018-08-10] MEDS ORDERED: NS 500 ML IV ONE (14:05)
[2018-08-10] MEDS ORDERED: NS 1,000 ML IV SCH (14:15)
[2018-08-10 14:24] LABS: CREATINE KINASE 225 IU/L (0-224)
[2018-08-10] MEDS ORDERED: D5W 1,000 ML IV SCH (14:42)
[2018-08-10] MEDS ORDERED: D50W 25 GM/50 ML SYR IVP PRN (14:42)
[2018-08-10] MEDS: INSULIN REGULAR HUMAN 100 UNIT in NS 100 ML IV SCH ×2 (15:26→22:14)
[2018-08-10] MEDS ORDERED: SODIUM BICARBONATE 150 MEQ in D5W 1,000 ML IV SCH (15:45)
--- NOTE | 2018-08-10 15:54 | SOAPPROG ---
SOAP Progress Note Assessment/Plan: Assessment: UTE, not oliguric, no urgent ARMATURE REWINDER needs, but probably won't tolerate another renal insult hypernatremia, better, continue therapies and follow hypokalemia better Low CO2 worsened, maintaining pH with vent, will start bicarb gtt today Acute pancreatitis with MSOF, remains critically ill Plan: continue supportive care start bicarb drip follow K, Na, creat and pH 08/09/18 13:33 08/10/18 15:51 Subjective: not communicative on vent family not at bedside today Objective: Vital Signs Temp Pulse Resp BP Pulse Ox 37.9 C 57 L 17 92/46 L 100 08/10/18 15:00 08/10/18 15:00 08/10/18 15:00 08/10/18 15:00 08/10/18 15:00 Laboratory Results 08/10/18 08:40 08/10/18 05:10 08/09/18 08/10/18 08/11/18 05:59 05:59 05:59 Intake Total 6135.6 5404.5 Output Total 2049 1560 Balance 4085.6 3844.5 PT 18.3 SEC (12.0-15.0) H 08/08/18 21:40 INR 1.50 (0.83-1.16) H 08/08/18 21:40 Physical Exam - Physical Exam General Appearance: other (sedated on vent) Neck: other (intubated) Respiratory: other (coarse BS on vent) Cardiac/Chest: edema, bradycardia, other (regular), No friction rub Abdomen: other (quiet, mod dist) Skin: warm/dry Extremities: swelling Neuro/Psych: other (sedated, not communicative) ICD10 Worksheet Patient Problems: Problems Problem Status Onset Acute renal failure Acute Aspiration pneumonia Acute Pancreatitis, acute Acute Septic shock Acute
[2018-08-10] MEDS ORDERED: PROTOCOL POTASSIUM 1 DOSE MISC PRN (16:06)
--- NOTE | 2018-08-10 17:23 | HOSPPROG ---
Hospitalist Progress Note Assessment/Plan: Subjective Follow-up on acute hypoxic respiratory failure and acute kidney injury. Family was present at the bedside today and updated. Unfortunately no major improvement of his creatinine value but no immediate indication for hemodialysis. We did review his hemoglobin A1c which was measured at 12%. I explained to the family and I suspected he had diabetes for at least several months and this was apparently previously not known. Objective Vitals as detailed below Exam General-sedated, intermittently with spontaneous movement of extremities and neck Heart-regular rate and rhythm no murmurs Lungs-Clear to auscultation with normal respiratory effort Abdomen-soft nontender nondistended normal bowel sounds Extremities-trace pitting edema, compression devices in place Skin-no concerning skin rashes noted Labs as detailed below Assessment and plan Acute hypoxic respiratory failure-stable oxygen need. Continue per Pulmonary medicine's recommendations. Pancreatitis-patient had elevated lipase at 1879. Continue supportive measures and bowel rest. Likely related to recent heavy use of alcohol. Diabetic ketoacidosis-diabetes mellitus a new diagnosis for the patient. His hemoglobin A1c was 12%. Lantus has been increased to 30 units daily as glucose readings into the 300s today. Acute kidney injury-some improvement from hemoglobin at presentation which was 5.3. He is making some urine. There is no known history of chronic kidney disease but I suspect he had some degree of chronic kidney disease based upon his on diagnosed uncontrolled diabetes mellitus type 2 and hypertension. Appreciate Nephrology assistance on the case. Shock-continue with vasopressin and Levophed. Wean as able. A bicarb infusion has been started today. Hypokalemia-continue replacement with protocol. Hypernatremia-improved today at 142. Leukocytosis-improved with white blood cell count trending from 13-9. Patient is on empiric Zosyn presently. Thrombocytopenia-[place] [address] today. Hypertension-antihypertensives on hold. DVT prophylaxis-no heparin or Lovenox in light of thrombocytopenia. Disposition-patient is needing ongoing ICU level of care. Objective: Vital Signs Temp Pulse Resp BP Pulse Ox 37.8 C 76 24 H 112/48 L 100 08/10/18 16:00 08/10/18 16:03 08/10/18 16:03 08/10/18 16:00 08/10/18 16:03 Laboratory Results 08/10/18 08:40 08/10/18 05:10 08/09/18 08/10/18 08/11/18 05:59 05:59 05:59 Intake Total 6135.6 5404.5 Output Total 2049 1560 Balance 4085.6 3844.5 PT 18.3 SEC (12.0-15.0) H 08/08/18 21:40 INR 1.50 (0.83-1.16) H 08/08/18 21:40 ICD10 Worksheet Patient Problems: Problems Problem Status Onset Acute renal failure Acute Aspiration pneumonia Acute Pancreatitis, acute Acute Septic shock Acute
[2018-08-10] MEDS ORDERED: LACTULOSE 20 GM/30 ML UDCUP PO PRN (17:44)
[2018-08-10] MEDS ORDERED: POLYETHYLENE GLYCOL 3350 17 GM PKT PO PRN (17:44)
[2018-08-10] MEDS ORDERED: BISACODYL 10 MG SUPP PR PRN (17:44)
[2018-08-10] MEDS ORDERED: POTASSIUM Cl (KCl) 50 ML IV ONE (21:47)
[2018-08-10] MEDS: SENNOSIDES/DOCUSATE SODIUM TAB PO SCH (22:14)
[2018-08-10] MEDS: FAMOTIDINE 20 MG TAB TUBE SCH (22:15)
[2018-08-11 04:50] LABS: PLATELET COUNT 57 10^3/uL (150-400)
[2018-08-11] MEDS: PIPERACILLIN/TAZO 2.25 GM/DEX 50 ML IV SCH ×4 (06:45→23:44)
[2018-08-11] MEDS ORDERED: PROTOCOL POTASSIUM 1 DOSE MISC PRN (08:12)
[2018-08-11] MEDS: CHLORHEXIDINE GLUCONATE 15 ML UDL PO SCH ×2 (09:22→20:11)
[2018-08-11] MEDS: THIAMINE HCL 100 MG TAB TUBE SCH (09:23)
[2018-08-11] MEDS: INSULIN GLARGINE 100 UNITS/ML UNIT SC SCH (09:23)
[2018-08-11] MEDS: SENNOSIDES/DOCUSATE SODIUM TAB PO SCH (09:23)
[2018-08-11] MEDS: fentaNYL/NACL 100 ML IV SCH (09:28)
[2018-08-11] MEDS: DEXMEDETOMIDINE HCL 400 MCG in NS 100 ML IV SCH ×4 (09:28→23:36)
[2018-08-11] MEDS ORDERED: ETOMIDATE 40 MG/20 ML INJ IV ONE (10:30)
[2018-08-11] MEDS ORDERED: MIDAZOLAM 2 MG/2 ML VIAL IVP ONE (10:30)
--- NOTE | 2018-08-11 11:02 | SOAPPROG ---
SOAP Progress Note Assessment/Plan: Assessment/Plan: UTE: unknown baseline, likely ATN in setting of severe pancreatitis and shock along with volume depletion. Cr down from 5.3 to 4.2 with IVFs and BP support and now stable there, good UOP and lytes ok. May have underlying CKD. - No need for HD at this time. - Continue IVFs, continuing bicarb ggt but adjusting to hypotonic solution. - Will continue to monitor. - Avoid hypotension and nephrotoxins. Acidemia: pt with anion gap acidosis from lactic acidosis and ketoacidosis initially, now with a nongap acidosis in setting of UTE. - Will continue bicarb ggt, adjusting to make into hypotonic solution. - Will continue to monitor. Hypophosphatemia: phos 1.1, being replaced per protocol, will continue to monitor. Hypernatremia: pt was hypernatremic on presentation due to volume depletion, when corrected for hyperglycemia. Na now down to 146 with hypotonic fluids given. - Will change bicarb ggt to a hypotonic solution. - Will continue to monitor daily. Subjective: No acute events overnight. Pt remains off pressors, now off insulin ggt. Continues to have good UOP. Objective: Vital Signs Temp Pulse Resp BP Pulse Ox 37.3 C 57 L 18 91/48 L 100 08/11/18 07:00 08/11/18 07:00 08/11/18 07:00 08/11/18 07:00 08/11/18 07:00 Laboratory Results 08/11/18 04:30 08/11/18 04:30 08/10/18 08/11/18 08/12/18 05:59 05:59 05:59 Intake Total 5404.5 4989.9 Output Total 1560 1950 0 Balance 3844.5 3039.9 0 PT 18.3 SEC (12.0-15.0) H 08/08/18 21:40 INR 1.50 (0.83-1.16) H 08/08/18 21:40 General: sedated, no acute distress OP: intubated CV: RRR Resp: intubated and on vent Abd: Soft, distended Ext: +1 edema BLE ICD10 Worksheet Patient Problems: Problems Problem Status Onset Acute renal failure Acute Aspiration pneumonia Acute Pancreatitis, acute Acute Septic shock Acute
--- NOTE | 2018-08-11 11:04 | HOSPPROG ---
Hospitalist Progress Note Assessment/Plan: 53 yo M w severe pancreatitis, resp failure, [place], new DM pancreatitis: etiology is alcohol has post pyloric feeding tube abd distension noted AHRF: intubated 08/09 for hypoxia, mental status cxr at that time showed likley pulm edema (interp by me) begin vent wean today renal: [place] plus likely ATN appreciate renal input ? continue bicarb drip DM: presented w AG acidosis, ketosis plus marked hyperglycemia this is suggestive of DM1, habitus and age suggestive of dm2 check c peptide he is on lantus wean off insulin gtt add lispro ss proph: sc heparin dispo: critically ill 40 min crit care Subjective: case d/w dr engle Objective: Vital Signs Temp Pulse Resp BP Pulse Ox 37.3 C 57 L 18 91/48 L 100 08/11/18 07:00 08/11/18 07:00 08/11/18 07:00 08/11/18 07:00 08/11/18 07:00 Laboratory Results 08/11/18 04:30 08/11/18 04:30 08/10/18 08/11/18 08/12/18 05:59 05:59 05:59 Intake Total 5404.5 4989.9 Output Total 1560 1950 0 Balance 3844.5 3039.9 0 PT 18.3 SEC (12.0-15.0) H 08/08/18 21:40 INR 1.50 (0.83-1.16) H 08/08/18 21:40 - Physical Exam Constitutional: other (intubated/sedated) Eyes: PERRL, anicteric sclera Ears, Nose, Mouth, Throat: moist mucous membranes, ears appear normal Cardiovascular: regular rate and rhythym, no murmur, rub, or gallop Respiratory: no respiratory distress, no rales or rhonchi Gastrointestinal: distension, other (hypoactive bowel sounds) Genitourinary: no bladder fullness, miranda in urethra Skin: warm, normal color Musculoskeletal: No full muscle strength Neurologic: No AAOx3 Psychiatric: interacting appropriately, not anxious ICD10 Worksheet Patient Problems: Problems Problem Status Onset Acute renal failure Acute Aspiration pneumonia Acute Pancreatitis, acute Acute Septic shock Acute
[2018-08-11] MEDS ORDERED: D50W 25 GM/50 ML SYR IVP PRN (11:23)
[2018-08-11] MEDS ORDERED: POLYETHYLENE GLYCOL 3350 17 GM PKT TUBE PRN (11:30)
[2018-08-11] MEDS: SODIUM BICARBONATE 100 MEQ in D5W 1,000 ML IV SCH ×2 (11:38→21:50)
[2018-08-11] MEDS ORDERED: K PHOS 20 MMOL in D5W 250 ML IV ONE (12:00)
[2018-08-11] MEDS: INSULIN LISPRO 100 UNIT/ML SC SCH ×2 (12:11→17:54)
--- NOTE | 2018-08-11 12:26 | PDINTPN ---
Building Maintenance Supervisor Progress Note Assessment/Plan: 53 M whose only known PMH included HTN and ETOH, was found obtunded by family on 08/07/18 and BIBA where he was intubated and started on pressors for severe acidosis presumed related to DKA and pancreatitis. He initially had a reported osmolar gap so was started on fomepazole, but this was dc'd when his propylene glycol and methyl alcohol levels were undectable. There was some question of aspiration as well so was started on Zosyn. * Severe metabolic acidosis- likely related to hyperosmolar non-ketotic hyperglycemia and DKA given initial glucose of 1318 (lactate of 4.5 also a contributor). Initial ABG had elements of both metabolic and respiratory acidosis since pCo2 was higher than expected. Also favoring HONK was minor ketones in urine and glucose >1000 with concomitant metabolic alkalosis. I also do not show an osmolar gap on my calculations on admission. In any case, he was treated aggressively with IVF and insulin drip, which is now transitioning off. His HgB-A1c of 12% suggested long standing, untreated hyperglycemia and DM, which is common in his family members. Agree with ongoing efforts to transition of drip and onto lantus. Discussed with Pharmacy and hospitalist. * Acute respiratory failure with hypercapnia and hypoxemia, ventilator dependent - Difficulty with maintaining ETT cuff pressure today with frequent alarming of the vent, so ETT changed over tube changer without difficulty. FiO2/PEEP is low so will start weaning trials today (vent day#5). CXR 08/09 without significant infiltrate * Pancreatitis with lipase >20,000 on admission and significant discomfort per family. Now with soft abdomen and substantial decline in lipase (likely at least partially pseudo-elevated in setting of UTE). Continue with IVF and TF ( shown to be superior in pancreatitis as opposed to TPN). No evidence of necrosis on abdo CT * UTE- presumed related to hypotension/ATN, pancreatitis, and perhaps element of DM related nephropathy. Creatinine remains high, but adequate UOP. Agree with no HD. HCO3 reduced in IVF per renal. * Hypotension- related to above. No clear evidence of ACS, adrenal insufficiency , bacteremia. Now off pressors but BP this AM borderline. Monitor closely. * Thrombocytopenia- they were 170 on admission, but he was severely dehydrated at the time. Today stable at 57 and no pre-hospital records available to compare (eg [facility]). CT reported normal spleen size. May have been related to shock on arrival. Continue to follow * ETOH- watching for signs of WD. Sedated on precedex and fentanyl. Needs daily sedation vacation * * * Critical care time 60 minutes Subjective: sedated and ventilated Objective: Vital Signs Temp Pulse Resp BP Pulse Ox 37.3 C 55 L 20 94/46 L 98 08/11/18 07:00 08/11/18 11:00 08/11/18 11:00 08/11/18 11:00 08/11/18 11:00 Laboratory Results 08/11/18 04:30 08/11/18 04:30 08/10/18 08/11/18 08/12/18 05:59 05:59 05:59 Intake Total 5404.5 4989.9 498 Output Total 1560 1950 0 Balance 3844.5 3039.9 498 PT 18.3 SEC (12.0-15.0) H 08/08/18 21:40 INR 1.50 (0.83-1.16) H 08/08/18 21:40 - Time Spent With Patient Time Spent With Patient: 60 - Pending Discharge Pending Discharge Within 24 Hours: No Pending Discharge Within 48 Hours: No Physical Exam - Physical Exam General Appearance: no apparent distress, obtunded EENT: PERRL/EOMI, ET tube Neck: supple Respiratory: rhonchi, No respiratory distress, No accessory muscle use, No wheezing Cardiac/Chest: regular rate, rhythm, No edema Abdomen: non-tender, soft, distended, No organomegaly, No guarding, No rebound, No ascites Skin: normal color, warm/dry, No cyanosis Lymphatic: no adenopathy Extremities: No pedal edema Neuro/Psych: cognition abnormalities, No abnormal harp maker II-XII ICD10 Worksheet Patient Problems: Problems Problem Status Onset Acute renal failure Acute Aspiration pneumonia Acute Pancreatitis, acute Acute Septic shock Acute
--- NOTE | 2018-08-11 13:42 | ASMTCMCOM ---
CM Note CM Note Notes: Patient in severe met acidosis, respiratory failure, Pancreatitis, UTE, Hypotension, ETOH. Met with patient's sister, Lior Proxy in "Family Meeting" See "Notes" for Family Meeting. Too early to determine discharge needs. Date Signed: 08/11/2018 01:42 PM Electronically Signed By:Vanita Parson LCSW
[2018-08-11] MEDS: FAMOTIDINE 20 MG TAB TUBE SCH (20:11)
[2018-08-11] MEDS: SENNOSIDES 17.6 MG/10 ML UDL TUBE SCH (20:13)
[2018-08-11] MEDS ORDERED: INSULIN LISPRO 100 UNIT/ML SC ONE (21:02)
[2018-08-12] MEDS: DEXMEDETOMIDINE HCL 400 MCG in NS 100 ML IV SCH ×3 (04:00→12:32)
[2018-08-12] MEDS: PIPERACILLIN/TAZO 2.25 GM/DEX 50 ML IV SCH ×4 (05:46→23:12)
[2018-08-12] MEDS: fentaNYL/NACL 100 ML IV SCH (05:46)
[2018-08-12 05:55] LABS: PLATELET COUNT 68 10^3/uL (150-400)
[2018-08-12] MEDS: INSULIN LISPRO 100 UNIT/ML SC SCH ×3 (08:25→17:37)
[2018-08-12] MEDS: SODIUM BICARBONATE 100 MEQ in D5W 1,000 ML IV SCH ×2 (08:26→20:18)
[2018-08-12] MEDS: CHLORHEXIDINE GLUCONATE 15 ML UDL PO SCH ×2 (08:27→20:19)
[2018-08-12] MEDS: THIAMINE HCL 100 MG TAB TUBE SCH (08:28)
[2018-08-12] MEDS: INSULIN GLARGINE 100 UNITS/ML UNIT SC SCH (08:28)
[2018-08-12] MEDS ORDERED: INSULIN GLARGINE 100 UNITS/ML UNIT SC ONE (09:30)
--- NOTE | 2018-08-12 09:30 | HOSPPROG ---
Hospitalist Progress Note Assessment/Plan: 53 yo M w severe pancreatitis, resp failure, [place], new DM pancreatitis: etiology is alcohol has post pyloric feeding tube abd distension noted AHRF: intubated 08/09 for hypoxia, mental status cxr at that time showed likley pulm edema begin vent wean today repeat cxr renal: [place] plus likely ATN appreciate renal input cr continues to trend down ?sepsis: had septic physiology on presentation but no demonstrated infection today day 6 of zosy DM: presented w AG acidosis, ketosis plus marked hyperglycemia this is suggestive of DM1, habitus and age suggestive of dm2 check c peptide he is on lantus lantus increased to 50 daily proph: sc heparin dispo: critically ill 40 min crit care Subjective: case d/w dr engle. remains vented. hyperglycemic Objective: Vital Signs Temp Pulse Resp BP Pulse Ox 37.2 C 54 L 20 118/60 100 08/12/18 08:00 08/12/18 08:03 08/12/18 08:03 08/12/18 08:00 08/12/18 08:03 Laboratory Results 08/12/18 05:40 08/12/18 05:40 08/11/18 08/12/18 08/13/18 05:59 05:59 05:59 Intake Total 4989.9 5126.1 Output Total 1950 5 325 Balance 3039.9 3071.1 -325 PT 18.3 SEC (12.0-15.0) H 08/08/18 21:40 INR 1.50 (0.83-1.16) H 08/08/18 21:40 - Physical Exam Constitutional: no apparent distress, appears nourished Eyes: PERRL, anicteric sclera Ears, Nose, Mouth, Throat: moist mucous membranes, hearing normal Cardiovascular: regular rate and rhythym, no murmur, rub, or gallop Respiratory: no respiratory distress, no rales or rhonchi Gastrointestinal: normoactive bowel sounds, soft, non-tender abdomen Genitourinary: no bladder fullness, miranda in urethra Skin: warm, normal color Musculoskeletal: full muscle strength, no muscle tenderness Neurologic: AAOx3, sensation intact bilaterally Psychiatric: interacting appropriately, not anxious Lymph, Heme, Immunologic: no cervical LAD ICD10 Worksheet Patient Problems: Problems Problem Status Onset Acute renal failure Acute Aspiration pneumonia Acute Pancreatitis, acute Acute Septic shock Acute
[2018-08-12] MEDS ORDERED: K PHOS 10 MMOL in D5W 250 ML IV ONE (10:00)
--- NOTE | 2018-08-12 10:48 | PDINTPN ---
Drying Unit Felting Machine Operator Progress Note Assessment/Plan: 53 M whose only known PMH included HTN and ETOH, was found obtunded by family on 08/07/18 and BIBA where he was intubated and started on pressors for severe acidosis presumed related to DKA and pancreatitis. He initially had a reported osmolar gap so was started on fomepazole, but this was dc'd when his propylene glycol and methyl alcohol levels were undectable. There was some question of aspiration as well so was started on Zosyn. * Severe metabolic acidosis- likely related to hyperosmolar non-ketotic hyperglycemia and DKA given initial glucose of 1318 (lactate of 4.5 also a contributor). Initial ABG had elements of both metabolic and respiratory acidosis since pCo2 was higher than expected. Also favoring HONK was minor ketones in urine and glucose >1000 with concomitant metabolic alkalosis. I also do not show an osmolar gap on my calculations on admission. In any case, he was treated aggressively with IVF and insulin drip, which is now transitioning off. His HgB-A1c of 12% suggested long standing, untreated hyperglycemia and DM, which is common in his family members. Added additional lantus today since BG remains high. * Acute respiratory failure with hypercapnia and hypoxemia, ventilator dependent - (vent day#6). Weaned well on 08/01 starting 08/11. CXR 08/09 without significant infiltrate; todays CXR with some LLL atelectasis. Wean again today on 03/01. DC fentanyl to allow for wake up. * Pancreatitis with lipase >20,000 on admission and significant discomfort per family. Now with soft abdomen and substantial decline in lipase (likely at least partially pseudo-elevated in setting of UTE). Continue with IVF and TF ( shown to be superior in pancreatitis as opposed to TPN). No evidence of necrosis on abdo CT * UTE- presumed related to hypotension/ATN, pancreatitis, and perhaps element of DM related nephropathy. Creatinine remains high but falling, and adequate UOP. HCO3 reduced in IVF per renal on 08/11. * Hypotension- related to above. No clear evidence of ACS, adrenal insufficiency , bacteremia. Hct stable, though occult stool positive. Levophed down to about 5 at the moment. Check NICOM- may need additional IVF. * Thrombocytopenia- platelets were 170 on admission, but he was severely dehydrated at the time. May have been related to shock on arrival- continue to rise * ETOH- watching for signs of WD. Sedated on precedex and fentanyl. Needs daily sedation vacation * * * Critical care time 40 minutes 08/12/18 10:42 Subjective: no events Objective: Vital Signs Temp Pulse Resp BP Pulse Ox 37.2 C 53 L 20 118/71 100 08/12/18 08:00 08/12/18 10:00 08/12/18 10:00 08/12/18 10:00 08/12/18 10:00 Laboratory Results 08/12/18 05:40 08/12/18 05:40 08/11/18 08/12/18 08/13/18 05:59 05:59 05:59 Intake Total 4989.9 5126.1 Output Total 1950 5 625 Balance 3039.9 3071.1 -625 PT 18.3 SEC (12.0-15.0) H 08/08/18 21:40 INR 1.50 (0.83-1.16) H 08/08/18 21:40 - Time Spent With Patient Time Spent With Patient: 40 minutes Physical Exam - Physical Exam General Appearance: no apparent distress, obtunded EENT: PERRL/EOMI, ET tube Neck: supple Respiratory: lungs clear, normal breath sounds, No respiratory distress, No accessory muscle use, No rales, No wheezing Cardiac/Chest: regular rate, rhythm, No edema Abdomen: normal bowel sounds, non-tender, soft, No distended Skin: normal color, warm/dry, No cyanosis Lymphatic: no adenopathy Extremities: No pedal edema Neuro/Psych: cognition abnormalities ICD10 Worksheet Patient Problems: Problems Problem Status Onset Acute renal failure Acute Aspiration pneumonia Acute Pancreatitis, acute Acute Septic shock Acute
[2018-08-12] MEDS: SENNOSIDES 17.6 MG/10 ML UDL TUBE SCH ×2 (10:59→20:19)
[2018-08-12] MEDS ORDERED: ALBUMIN 25% 100 ML IV ONE (12:18)
--- NOTE | 2018-08-12 14:33 | SOAPPROG ---
SOAP Progress Note Assessment/Plan: Assessment/Plan: 53 y/o M with a known h/o DM who presented after being found down with DKA and severe pancreatitis with UTE and severe metabolic acidosis. UTE: - likely ATN in setting of severe pancreatitis and shock - Cr down from 5.3 to 4.0 - No need for HD at this time - likely has some underlying CKD however no proteinuria and unknown baseline Cr - Will continue to monitor. - Keep MAP >65, off pressors - renally dose meds for eGFR Acidemia: - bicarb improving on gtt, however now has a respiratory alkalosis, may need to increase sedation at some point (ICU trying to wean) - NAGMA likely 2/2 to hyperchloremia and GI issues - bicarb goal >20 - will d/w ICU Hypophosphatemia: On replacement protocol, goal >3. Hypernatremia: - Improving on hypotonic solution - continue to monitor 08/12/18 14:43 Subjective: No events overnight. Still on vent. UO >2L. Trying to wean sedation. Objective: Vital Signs Temp Pulse Resp BP Pulse Ox 36.9 C 55 L 20 114/55 L 99 08/12/18 12:05 08/12/18 14:00 08/12/18 14:00 08/12/18 14:00 08/12/18 14:00 Laboratory Results 08/12/18 05:40 08/12/18 05:40 08/11/18 08/12/18 08/13/18 05:59 05:59 05:59 Intake Total 4989.9 5126.1 Output Total 1950 2055 1250 Balance 3039.9 3071.1 -1250 PT 18.3 SEC (12.0-15.0) H 08/08/18 21:40 INR 1.50 (0.83-1.16) H 08/08/18 21:40 Physical Exam - Physical Exam General Appearance: other (intubated, sedated) EENT: normal ENT inspection Neck: non-tender, full range of motion Respiratory: decreased breath sounds Cardiac/Chest: regular rate, rhythm Abdomen: normal bowel sounds, soft, distended Skin: pallor Extremities: normal range of motion Neuro/Psych: other ICD10 Worksheet Patient Problems: Problems Problem Status Onset Acute renal failure Acute Aspiration pneumonia Acute Pancreatitis, acute Acute Septic shock Acute
[2018-08-12] MEDS ORDERED: ALBUMIN 25% 100 ML SOLN IV ONE (16:30)
[2018-08-12] MEDS: FAMOTIDINE 20 MG TAB TUBE SCH (20:31)
[2018-08-12] MEDS: NOREPINEPHRINE BITARTRATE 16 MG in NS 250 ML IV SCH (21:22)
[2018-08-12] MEDS: PROPOFOL/EMULSION 100 ML IV SCH (22:32)
[2018-08-13] MEDS: PROPOFOL/EMULSION 100 ML IV SCH ×4 (03:14→22:34)
[2018-08-13 04:56] LABS: PLATELET COUNT 79 10^3/uL (150-400)
[2018-08-13] MEDS: PIPERACILLIN/TAZO 2.25 GM/DEX 50 ML IV SCH (05:55)
[2018-08-13] MEDS: SODIUM BICARBONATE 100 MEQ in D5W 1,000 ML IV SCH (06:13)
[2018-08-13] MEDS: fentaNYL/NACL 100 ML IV SCH (06:55)
[2018-08-13] MEDS: VANCOMYCIN 125 MG/2.5 ML UDL PO SCH ×4 (07:00→22:34)
[2018-08-13] MEDS: CHLORHEXIDINE GLUCONATE 15 ML UDL PO SCH ×2 (07:57→22:34)
[2018-08-13] MEDS ORDERED: LIDOCAINE 1% 2 ML INJ ONE (09:18)
[2018-08-13] MEDS: INSULIN GLARGINE 100 UNITS/ML UNIT SC SCH (09:25)
[2018-08-13] MEDS: THIAMINE HCL 100 MG TAB TUBE SCH (09:25)
[2018-08-13] MEDS ORDERED: LIDOCAINE 1% 2 ML INJ IF ONE (09:30)
--- NOTE | 2018-08-13 09:56 | HOSPPROG ---
Hospitalist Progress Note Assessment/Plan: 53 yo M w severe pancreatitis, resp failure, charlotte, new DM pancreatitis: etiology is alcohol has post pyloric feeding tube abd distension noted hypotension: remains on pressors check echo euvolemic by the AHRF: intubated 08/09 for hypoxia, mental status cxr at that time showed likley pulm edema begin vent wean today repeat cxr renal: charlotte plus likely ATN appreciate renal input cr continues to trend down acidosis: ok to dc bicarb gtt cdiff: vanco started dc zosyn follow abd exam ?sepsis: had septic physiology on presentation but no demonstrated infection dc abx DM: presented w AG acidosis, ketosis plus marked hyperglycemia this is suggestive of DM1, habitus and age suggestive of dm2 check c peptide he is on lantus lantus increased to 50 daily proph: sc heparin dispo: critically ill 40 min crit care Subjective: remains on pressors. now cdiff +. case d/w dr engle Objective: Vital Signs Temp Pulse Resp BP Pulse Ox 36.9 C 64 20 132/50 H 100 08/13/18 09:00 08/13/18 09:00 08/13/18 09:00 08/13/18 09:00 08/13/18 09:00 Microbiology 08/07/18 17:08 Blood Culture - Final Blood 08/07/18 15:37 Blood Culture - Final Blood Laboratory Results 08/13/18 04:45 08/13/18 04:45 08/12/18 08/13/18 08/14/18 05:59 05:59 05:59 Intake Total 5126.1 4296.4 11.3 Output Total 2055 2305 240 Balance 3071.1 1991.4 -228.7 PT 18.3 SEC (12.0-15.0) H 08/08/18 21:40 INR 1.50 (0.83-1.16) H 08/08/18 21:40 - Physical Exam Constitutional: other (intubated, sedated) Eyes: PERRL, anicteric sclera Ears, Nose, Mouth, Throat: moist mucous membranes, hearing normal Cardiovascular: regular rate and rhythym, no murmur, rub, or gallop, No systolic murmur Respiratory: other (rhonchi anterolat), No no rales or rhonchi Gastrointestinal: normoactive bowel sounds, soft, non-tender abdomen, distension , No guarding, No rebound Genitourinary: no bladder fullness, No miranda in urethra Skin: warm Musculoskeletal: No full muscle strength Neurologic: No AAOx3 Psychiatric: No interacting appropriately ICD10 Worksheet Patient Problems: Problems Problem Status Onset Acute renal failure Acute Aspiration pneumonia Acute Pancreatitis, acute Acute Septic shock Acute
[2018-08-13] MEDS ORDERED: POTASSIUM Cl (KCl) 50 ML IV ONE (10:00)
[2018-08-13] MEDS ORDERED: INSULIN GLARGINE 100 UNITS/ML UNIT SC ONE (10:45)
[2018-08-13] MEDS: SENNOSIDES 17.6 MG/10 ML UDL TUBE SCH ×2 (10:53→22:34)
[2018-08-13] MEDS: INSULIN LISPRO 100 UNIT/ML SC SCH ×3 (12:21→18:31)
--- NOTE | 2018-08-13 13:11 | SOAPPROG ---
SOAP Progress Note Assessment/Plan: Assessment: 1. arf: presumed ischemic atn from hypotension. Good uo with slowly decreasing creat. B/l creat unknown. 2. met acidosis: resolved, iv bicarb d/c'd earlier today. 3. hyperNa: mild/stable. Will increase free water flushes to 100ml Q2H now that hypotonic ivf off. 4. shock: currently off pressors. Presumably quite a bit of third spacing, will check lft's as iv albumin would likely be efficacious if severely hypoalbuminemic. 5. hypoK: currently resolved, being replaced prn per protocol. Plan: 08/13/18 13:08 Subjective: Currently on vent wean, off pressors.Tolerating TF's. Objective: Vital Signs Temp Pulse Resp BP Pulse Ox 37.1 C 112 H 16 154/71 H 100 08/13/18 12:00 08/13/18 12:00 08/13/18 12:00 08/13/18 12:00 08/13/18 12:00 Microbiology 08/07/18 17:08 Blood Culture - Final Blood 08/07/18 15:37 Blood Culture - Final Blood Laboratory Results 08/13/18 04:45 08/13/18 04:45 08/12/18 08/13/18 08/14/18 05:59 05:59 05:59 Intake Total 5126.1 4296.4 11.3 Output Total 2055 2305 600 Balance 3071.1 1991.4 -588.7 PT 18.3 SEC (12.0-15.0) H 08/08/18 21:40 INR 1.50 (0.83-1.16) H 08/08/18 21:40 Physical Exam - Physical Exam General Appearance: other (intubated, sedated) Respiratory: lungs clear (anteriorly) Cardiac/Chest: regular rate, rhythm Abdomen: distended, other (hypoactive bowel sounds) Extremities: pedal edema ICD10 Worksheet Patient Problems: Problems Problem Status Onset Acute renal failure Acute Aspiration pneumonia Acute Pancreatitis, acute Acute Septic shock Acute
--- NOTE | 2018-08-13 15:29 | PDINTPN ---
Echo Vasc Tech Progress Note Assessment/Plan: 53 M whose only known PMH included HTN and ETOH, was found obtunded by family on 08/07/18 and BIBA where he was intubated and started on pressors for severe acidosis presumed related to DKA and pancreatitis. He initially had a reported osmolar gap so was started on fomepazole, but this was dc'd when his propylene glycol and methyl alcohol levels were undectable. There was some question of aspiration as well so was started on Zosyn. * Severe metabolic acidosis- likely related to hyperosmolar non-ketotic hyperglycemia and DKA given initial glucose of 1318 (lactate of 4.5 also a contributor). Initial ABG had elements of both metabolic and respiratory acidosis since pCo2 was higher than expected. Also favoring HONK was minor ketones in urine and glucose >1000 with concomitant metabolic alkalosis. I also do not show an osmolar gap on my calculations on admission. In any case, he was treated aggressively with IVF and insulin drip, which is now transitioning off. His HgB-A1c of 12% suggested long standing, untreated hyperglycemia and DM, which is common in his family members. Added additional lantus with some improvement in BG control. * Acute respiratory failure with hypercapnia and hypoxemia, ventilator dependent - (vent day#7). Weaned well on 08/01 starting 08/11. CXR 08/09 without significant infiltrate; CXR 08/12 with some LLL atelectasis. Weaned well on 03/01 for several hours today and became agitated off sedation- extubated this afternoon. * Pancreatitis with lipase >20,000 on admission and significant discomfort per family at that time. Now with soft abdomen and substantial decline in lipase ( likely at least partially pseudo-elevated in setting of UTE). Continue with IVF and TF (shown to be superior in pancreatitis as opposed to TPN). No evidence of necrosis on abdo CT * UTE- presumed related to hypotension/ATN, pancreatitis, and perhaps element of DM related nephropathy. Creatinine remains high but falling, and adequate UOP. HCO3 reduced in IVF per renal on 08/11. * Hypotension- related to above. No clear evidence of ACS, adrenal insufficiency , bacteremia. Hct stable, though occult stool positive. Levophed down to about 5 at the moment. NICOM showed fluid responsiveness and improved with additional IVF. Re-eval after extubation re: need for additional fluid * Thrombocytopenia- platelets were 170 on admission, but he was severely dehydrated at the time. May have been related to shock on arrival- continue to rise * ETOH- watching for signs of WD. Sedated on precedex and fentanyl. Needs daily sedation vacation * C. Diff- started po vanco * * Critical care time 35 minutes Subjective: sedated on vent Objective: Vital Signs Temp Pulse Resp BP Pulse Ox 36.9 C 116 H 30 H 160/87 H 99 08/13/18 14:00 08/13/18 14:00 08/13/18 14:00 08/13/18 14:00 08/13/18 14:00 Microbiology 08/07/18 17:08 Blood Culture - Final Blood 08/07/18 15:37 Blood Culture - Final Blood Laboratory Results 08/13/18 04:45 08/13/18 04:45 08/12/18 08/13/18 08/14/18 05:59 05:59 05:59 Intake Total 5126.1 4296.4 11.3 Output Total 2055 2305 600 Balance 3071.1 1991.4 -588.7 PT 18.3 SEC (12.0-15.0) H 08/08/18 21:40 INR 1.50 (0.83-1.16) H 08/08/18 21:40 Physical Exam - Physical Exam General Appearance: no apparent distress, obese EENT: PERRL/EOMI, ET tube Neck: supple Respiratory: lungs clear, normal breath sounds, decreased breath sounds, No respiratory distress, No accessory muscle use Cardiac/Chest: regular rate, rhythm, No edema Abdomen: non-tender, soft, No normal bowel sounds, No guarding, No rebound, No rigid Skin: normal color, warm/dry, No cyanosis Lymphatic: no adenopathy Extremities: No pedal edema Neuro/Psych: cognition abnormalities ICD10 Worksheet Patient Problems: Problems Problem Status Onset Acute renal failure Acute Aspiration pneumonia Acute Pancreatitis, acute Acute Septic shock Acute
[2018-08-13] MEDS ORDERED: ALTEPLASE 2 MG VIAL IVP PRN (15:42)
--- NOTE | 2018-08-13 15:53 | ECHO ---
[email or web address] [address] Main: [phone] Fax: [email or web address] Echocardiogram Name: ELVIS SRINIVASAN MR#: [id number] Study Date: 08/13/2018 Study Time: 11:37 AM Date of : 1965 Age: 53 year(s) Height: 167.6 cm (66 in.) Weight: 112.49 kg (248 lb.) BSA: 2.19 m2 Gender: Male Examination: Echo Indication: hypotension pressors Image Quality: Adequate Contrast: Requested by: Dimitry Iverson BP: 162 mmHg/78 mmHg Heart Rate: Rhythm: Indication: hypotension pressors Procedure Staff Gunsmith Apprentice: Ember Robison [facility] Reading Physician: Perez Mirza MD Requesting Provider: Conclusions: Normal size left ventricle. Borderline concentric LV hypertrophy. EF is 62 %. No regional wall motion abnormality. Normal appearing valvular structures. Trivial to mild mitral regurgitation. Trivial tricuspid valve regurgitation. No pericardial effusion. No prior study for comparison. Measurements: Chambers Valvular Assessment AV/MV Valvular Assessment TV/PV Normal Normal Normal Name Value Range Name Value Range Name Value Range Ao Renetta (2D): 3.1 cm (1.4 cm-2.6 AV Vmax: 1.82 m/s (1 m/s-1.7 PV Vmax: 1.55 m/s (0.6 m/s-0.9 cm) m/s) m/s) IVSd (2D): 1.1 cm (0.6 cm-1.1 AV maxP mmHg ( - ) PV PGmax: 10 mmHg ( - ) cm) AV meanP mmHg ( - ) LVDd (2D): 5.4 cm (4.2 cm-5.9 EDI (VTI): 2.8 cm ( - ) cm) MV E Vmax: 1.25 m/s ( - ) LVDs (2D): 3.6 cm (2.1 cm-4 MV A Vmax: 1.20 m/s ( - ) cm) MV E/A: 1.04 ( - ) LVPWd (2D): 1.1 cm (0.6 cm-1 cm) MV PHT: 0.043 s ( - ) LVOTd 2.1 cm 2.1 cm mm MVA (PHT): 5.1 s ( - ) LVEF (BP): 62 % (>=55 %) RVDd(2D): 3.7 cm (1.9 cm-3.8 cmmm) Continued Measurements: Patient: ELVIS SRINIVASAN Study Date: 08/13/2018 Page 1 of 2 11:37 AM Chambers Valvular Assessment AV/MV Name Value Name Value LADs: 3.9 cm MV DecTime: 155 m/s LADs Lon.5 cm MV E' Septal: 0.14 m/s LA Area: 20.5 cm2 MV E/E' Septal: 8.80 LA Volume: 62 ml MV E/E' Lateral: 7.80 LA Volume Index: 28.3 ml/m2 Additional Vessels Name Value Ao Ascendin.3 cm Inferior Vena Cava: 1.6 cm Findings: Left Ventricle: Normal size left ventricle. Borderline concentric LV hypertrophy. Normal global systolic LV function. EF is 62 %. No regional wall motion abnormality. Unable to assess diastolic dysfunction. Right Ventricle: Normal size right ventricle. Normal RV function. Left Atrium: The left atrium is normal in size. Right Atrium: The right atrium is normal in size. Mitral Valve: The mitral valve is normal in appearance and function. Trivial to mild mitral regurgitation. No mitral stenosis is present. Aortic Valve: The aortic valve is tri-leaflet. There is no aortic valve regurgitation. No aortic valve stenosis is present. Tricuspid Valve: The tricuspid valve is normal in appearance and function. Trivial tricuspid valve regurgitation. Pulmonic Valve: The pulmonic valve is normal in appearance and function. There is no pulmonic regurgitation seen. Aorta: The aorta is normal. Normal size aortic root measuring 3.1 cm. Normal size ascending aorta measuring 3.3 cm. IVC: The IVC is normal sized. Pericardium: No pericardial effusion. There is a pleural effusion present. (No Signature Object) Patient: ELVIS SRINIVASAN Study Date: 08/13/2018 Page 2 of 2 11:37 AM [id number]
[2018-08-13] MEDS ORDERED: LABETALOL HCL 5 MG/ML 20 ML MDV IVP PRN (16:23)
[2018-08-13] MEDS ORDERED: FUROSEMIDE 20 MG/2 ML VIAL IVP ONE (20:14)
[2018-08-13] MEDS ORDERED: FUROSEMIDE 40 MG/4 ML VIAL ONE (20:16)
[2018-08-13] MEDS ORDERED: SUCCINYLCHOLINE CHLORIDE 200 MG/10 ML SYR IVP ONE (20:40)
[2018-08-13] MEDS ORDERED: ETOMIDATE 40 MG/20 ML INJ IV ONE (20:40)
--- NOTE | 2018-08-13 21:20 | HOSPPROG ---
Hospitalist Progress Note Assessment/Plan: Called by nursing to come evaluate patient for concerns of increased work of breathing, tachypnea and concerns that he is failing his extubation which was performed earlier today. On exam patient with diffuse rhonchi, tachpnea to the 40s, accessory muscle use and tachycardia. He does not respond to questions but does move spontaneously. Labs were reviewed, ABG ordered and reviewed showing pCO2 of 53 which is higher than it has been previously, Chest xray ordered and personally reviewed showing patchy airspace consolidation left > right. Discussed with Dr. Ortega in ER and requested urgent intubation. Patient successfully intubated, post intubation cxr reviewed showing good position of ET tube. > 35 min critical care time spent with this patient in review of labs/imaging, consultation of ER doctor and coordination of care at bedside with nursing. Objective: Vital Signs Temp Pulse Resp BP Pulse Ox 37.3 C 109 H 38 H 155/76 H 97 08/13/18 20:00 08/13/18 20:00 08/13/18 20:00 08/13/18 20:00 08/13/18 20:00 Microbiology 08/07/18 17:08 Blood Culture - Final Blood 08/07/18 15:37 Blood Culture - Final Blood Laboratory Results 08/13/18 04:45 08/13/18 18:40 08/12/18 08/13/18 08/14/18 05:59 05:59 05:59 Intake Total 5126.1 4296.4 1943.3 Output Total 5 2305 1975 Balance 3071.1 1991.4 -31.7 PT 18.3 SEC (12.0-15.0) H 08/08/18 21:40 INR 1.50 (0.83-1.16) H 08/08/18 21:40 ICD10 Worksheet Patient Problems: Problems Problem Status Onset Pancreatitis, acute Acute Septic shock Acute Acute renal failure Acute Aspiration pneumonia Acute
[2018-08-13] MEDS: FAMOTIDINE 20 MG TAB TUBE SCH (22:34)
[2018-08-14] MEDS ORDERED: ETOMIDATE 40 MG/20 ML INJ ONE (00:03)
[2018-08-14] MEDS: INSULIN LISPRO 100 UNIT/ML SC SCH ×4 (00:17→18:37)
[2018-08-14 04:26] LABS: PLATELET COUNT 106 10^3/uL (150-400)
[2018-08-14] MEDS: VANCOMYCIN 125 MG/2.5 ML UDL PO SCH ×3 (07:02→16:25)
[2018-08-14] MEDS: PROPOFOL/EMULSION 100 ML IV SCH ×3 (07:02→18:37)
[2018-08-14] MEDS: CHLORHEXIDINE GLUCONATE 15 ML UDL PO SCH (08:06)
[2018-08-14] MEDS ORDERED: POTASSIUM Cl (KCl) 50 ML IV ONE (08:08)
[2018-08-14] MEDS: THIAMINE HCL 100 MG TAB TUBE SCH (08:20)
[2018-08-14] MEDS: SENNOSIDES 17.6 MG/10 ML UDL TUBE SCH (08:50)
--- NOTE | 2018-08-14 08:50 | GPN ---
The patient is in the ICU. PROCEDURE PERFORMED: Intubation. INDICATION FOR INTUBATION: Respiratory failure and failure of BiPAP. The patient was somewhat hypox ic and had shallow rapid breathing. He was really not responsive to conversation of discussion of re -intubation. DESCRIPTION OF PROCEDURE: The patient was positioned and suctioned. He was given etomidate 20 mg in travenously followed by 150 mg of succinylcholine. Good relaxation was obtained. The patient was in tubated first pass using a 7.5 endotracheal tube and a GlideScope. Visualization of the endotracheal tube was made through the cords. Steam was noted in the endotracheal tube. Post-intubation, patien t had colorimeter change. Breath sounds were noted to be equal. O2 saturation post-intubated was 98 %. Post-intubation chest x-ray is ordered. IMPRESSION: Intubation for respiratory failure. /[id number]/MODL
[2018-08-14] MEDS ORDERED: INSULIN GLARGINE 100 UNITS/ML UNIT SC SCH (09:00)
--- NOTE | 2018-08-14 11:14 | SOAPPROG ---
SOAP Progress Note Assessment/Plan: Assessment/Plan: UTE: unknown baseline, likely ATN in setting of severe pancreatitis and shock along with volume depletion. Cr down from 5.3 to 3.5 with IVFs and BP support and improving, good UOP and lytes ok. May have underlying CKD. - No need for HD at this time. - No need for IVFs at this time. - Will continue to monitor. - Avoid hypotension and nephrotoxins. Acidemia: pt with anion gap acidosis from lactic acidosis and ketoacidosis initially, then nongap acidosis in setting of UTE. Now improved, off bicarb ggt , will continue to monitor. Hypokalemia: being replaced per protocol. Hypernatremia: Na now stable at 146, will continue free water flushes. Hypervolemia: holding IVFs, pt with good UOP, will continue to monitor for now. Subjective: Pt was extubated yesterday but failed and reintubated 3 hours later. He remains intubated and sedated, good UOP. Objective: Vital Signs Temp Pulse Resp BP Pulse Ox 37.6 C 95 15 103/47 L 99 08/14/18 10:00 08/14/18 10:00 08/14/18 10:00 08/14/18 10:00 08/14/18 10:00 Laboratory Results 08/14/18 04:00 08/14/18 04:00 08/13/18 08/14/18 08/15/18 05:59 05:59 05:59 Intake Total 4296.4 3327.8 Output Total 2305 3850 Balance 1991.4 -522.2 PT 18.3 SEC (12.0-15.0) H 08/08/18 21:40 INR 1.50 (0.83-1.16) H 08/08/18 21:40 General: alert and oriented, no acute distress OP: intubated CV: RRR Resp: intubated and on vent Abd: Soft, distended Ext: +2 edema all extremities Neuro: sedated ICD10 Worksheet Patient Problems: Problems Problem Status Onset Acute renal failure Acute Aspiration pneumonia Acute Pancreatitis, acute Acute Septic shock Acute
[2018-08-14] MEDS ORDERED: LIDOCAINE 1% 300 MG/30 ML SDV MISC ONE (14:10)
[2018-08-14] MEDS ORDERED: LIDOCAINE 2% JELLY 5 ML TUBE TP ONE (14:10)
[2018-08-14] MEDS ORDERED: LIDOCAINE 1% 300 MG/30 ML SDV ONE (14:11)
[2018-08-14] MEDS: HEPARIN 5,000 UNIT/0.5 ML INJ SC SCH (14:29)
--- NOTE | 2018-08-14 14:32 | HOSPPROG ---
Hospitalist Progress Note Assessment/Plan: 53 yo M w severe pancreatitis, resp failure, char[place], new DM pancreatitis: etiology is alcohol has post pyloric feeding tube abd distension noted hypotension: remains on pressors check echo euvolemic by the AHRF: intubated 08/09 for hypoxia, mental status cxr at that time showed likley pulm edema begin vent wean today reattempt vent wean 08/15 cxr mention possible LL inifiltrates- they really dont look all that different to me hold abx given concurrent cdiff renal: charlotte plus likely ATN appreciate renal input cr continues to trend down acidosis: stable off bicarb gtt cdiff: vanco started dc zosyn follow abd exam ?sepsis: had septic physiology on presentation but no demonstrated infection dc abx DM: presented w AG acidosis, ketosis plus marked hyperglycemia this is suggestive of DM1, habitus and age suggestive of dm2 check c peptide he is on lantus lantus increased to 50 daily 08/14: increease lantus to 58 daily proph: sc heparin dispo: critically ill 40 min crit care Subjective: extubated yesterday, reintubated last delilah. continued low grade pressor requirement that seems to correlate w sedation. echo normal. case d/w dr engle Objective: Vital Signs Temp Pulse Resp BP Pulse Ox 37.5 C 92 16 125/55 H 95 08/14/18 12:00 08/14/18 12:00 08/14/18 12:00 08/14/18 12:00 08/14/18 12:00 Laboratory Results 08/14/18 04:00 08/14/18 04:00 08/13/18 08/14/18 08/15/18 05:59 05:59 05:59 Intake Total 4296.4 3327.8 Output Total 2305 3850 Balance 1991.4 -522.2 PT 18.3 SEC (12.0-15.0) H 08/08/18 21:40 INR 1.50 (0.83-1.16) H 08/08/18 21:40 - Physical Exam Constitutional: no apparent distress, appears nourished Eyes: PERRL, anicteric sclera Ears, Nose, Mouth, Throat: moist mucous membranes, hearing normal Cardiovascular: regular rate and rhythym, no murmur, rub, or gallop Respiratory: no respiratory distress, rhonchi, No no rales or rhonchi Gastrointestinal: other (dstended w hypoactive bowel sounds) Genitourinary: no bladder fullness, No miranda in urethra Skin: warm, normal color Musculoskeletal: No full muscle strength Neurologic: sensation intact bilaterally, No AAOx3 Psychiatric: No interacting appropriately ICD10 Worksheet Patient Problems: Problems Problem Status Onset Acute renal failure Acute Aspiration pneumonia Acute Pancreatitis, acute Acute Septic shock Acute
--- NOTE | 2018-08-14 14:45 | PDINTPN ---
[employer] Progress Note Assessment/Plan: 53 M whose only known PMH included HTN and ETOH, was found obtunded by family on 08/07/18 and BIBA where he was intubated and started on pressors for severe acidosis presumed related to DKA and pancreatitis. He initially had a reported osmolar gap so was started on fomepazole, but this was dc'd when his propylene glycol and methyl alcohol levels were undectable. There was some question of aspiration as well so was started on Zosyn. * Severe metabolic acidosis- likely related to hyperosmolar non-ketotic hyperglycemia and DKA given initial glucose of 1318 (lactate of 4.5 also a contributor). Initial ABG had elements of both metabolic and respiratory acidosis since pCo2 was higher than expected. Also favoring HONK was minor ketones in urine and glucose >1000 with concomitant metabolic alkalosis. I also do not show an osmolar gap on my calculations on admission. In any case, he was treated aggressively with IVF and insulin drip, which is now transitioning off. His HgB-A1c of 12% suggested long standing, untreated hyperglycemia and DM, which is common in his family members. Added additional lantus with some improvement in BG control. * Acute respiratory failure with hypercapnia and hypoxemia, ventilator dependent - (vent day#8). Weaned well on PS10/CPAP5 starting 08/11. CXR 08/09 without significant infiltrate; CXR 08/12 with some LLL atelectasis. Extubated 08/13 but fentanyl drip not dc'd as ordered. After extubation he had difficulty managing secretions and would normalize sats, RR, HR with NT sucitoning (see RT notes). However, he developed hypercapnic respiratory failure later in the evening and required re-intubation. Secretions have been clear. His history of CRUZ also a contributor. Todays ABG shows clear hyperventilation, so reduced RR and TV with resulting normal ABG. Will re-attempt weaning trials today and dc fentanyl; using propofol alone for sedation since precedex was previously unsuccessful. May require zyprexa or seroquel. No additional abx or diuresis indicated at this time, though slight bump in WBC. * Pancreatitis with lipase >20,000 on admission and significant discomfort per family at that time. Now with soft abdomen and substantial decline in lipase ( likely at least partially pseudo-elevated in setting of UTE). Continue with IVF and TF (shown to be superior in pancreatitis as opposed to TPN). No evidence of necrosis on abdo CT * UTE- presumed related to hypotension/ATN, pancreatitis, and perhaps element of DM related nephropathy. Creatinine remains high but falling, and adequate UOP. HCO3 dc'd. * Hypotension- related to above. No clear evidence of ACS, adrenal insufficiency , bacteremia. Pressor requirement eliminated with dc fentayl/precedex. Back on low dose support today. * Thrombocytopenia- platelets were 170 on admission, but he was severely dehydrated at the time. May have been related to shock on arrival- continue to rise * ETOH- watching for signs of WD. Needs daily sedation vacation, with ongoing delerium assessment tools and pain assessment tools. Discussed on rounds. * C. Diff- started po vanco * * Critical care time 45 minutes 08/14/18 14:36 Subjective: Failed extubation 08/13 Objective: Vital Signs Temp Pulse Resp BP Pulse Ox 37.5 C 92 16 125/55 H 95 08/14/18 12:00 08/14/18 12:00 08/14/18 12:00 08/14/18 12:00 08/14/18 12:00 Laboratory Results 08/14/18 04:00 08/14/18 04:00 08/13/18 08/14/18 08/15/18 05:59 05:59 05:59 Intake Total 4296.4 3327.8 Output Total 2305 3850 Balance 1991.4 -522.2 PT 18.3 SEC (12.0-15.0) H 08/08/18 21:40 INR 1.50 (0.83-1.16) H 08/08/18 21:40 Physical Exam - Physical Exam General Appearance: no apparent distress, obtunded, obese EENT: PERRL/EOMI Neck: supple Respiratory: lungs clear, normal breath sounds, decreased breath sounds, No respiratory distress, No accessory muscle use, No rales, No wheezing Cardiac/Chest: regular rate, rhythm, No edema Abdomen: non-tender, soft, No distended, No guarding, No rebound Skin: normal color, warm/dry, No cyanosis Lymphatic: no adenopathy Extremities: No pedal edema Neuro/Psych: cognition abnormalities ICD10 Worksheet Patient Problems: Problems Problem Status Onset Acute renal failure Acute Aspiration pneumonia Acute Pancreatitis, acute Acute Septic shock Acute
[2018-08-14] MEDS: NOREPINEPHRINE BITARTRATE 16 MG in NS 250 ML IV SCH (16:36)
[2018-08-15] MEDS: VANCOMYCIN 125 MG/2.5 ML UDL PO SCH ×5 (00:05→21:27)
[2018-08-15] MEDS: HEPARIN 5,000 UNIT/0.5 ML INJ SC SCH ×4 (00:05→21:27)
[2018-08-15] MEDS: FAMOTIDINE 20 MG TAB TUBE SCH ×2 (00:05→21:27)
[2018-08-15] MEDS: CHLORHEXIDINE GLUCONATE 15 ML UDL PO SCH ×3 (00:07→21:27)
[2018-08-15] MEDS: PROPOFOL/EMULSION 100 ML IV SCH ×4 (01:00→18:07)
[2018-08-15] MEDS: INSULIN LISPRO 100 UNIT/ML SC SCH ×5 (01:15→18:07)
[2018-08-15 05:10] LABS: PLATELET COUNT 116 10^3/uL (150-400)
[2018-08-15] MEDS: INSULIN GLARGINE 100 UNITS/ML UNIT SC SCH (09:30)
[2018-08-15] MEDS: THIAMINE HCL 100 MG TAB TUBE SCH (09:31)
--- NOTE | 2018-08-15 10:00 | SOAPPROG ---
SOAP Progress Note Assessment/Plan: Assessment/Plan: UTE: unknown baseline, likely ATN in setting of severe pancreatitis and shock along with volume depletion. Cr down from 5.3 to 3.1 with IVFs and BP support and improving, good UOP and lytes ok. May have underlying CKD. - No need for HD at this time. - No need for IVFs at this time. - Will continue to monitor. - Avoid hypotension and nephrotoxins. Acidemia: pt with anion gap acidosis from lactic acidosis and ketoacidosis initially, then nongap acidosis in setting of UTE. Now improved, off bicarb ggt , will continue to monitor. Hypernatremia: Na now stable at 146, will continue free water flushes. Hypervolemia: holding IVFs, pt with good UOP and seems to be improving, will continue to monitor. Subjective: No acute events overnight. Pt remains intubated and sedated, has good UOP, remains off pressors. Objective: Vital Signs Temp Pulse Resp BP Pulse Ox 37.2 C 98 17 135/68 H 100 08/15/18 09:00 08/15/18 09:00 08/15/18 09:00 08/15/18 09:00 08/15/18 09:00 Laboratory Results 08/15/18 04:30 08/15/18 04:30 08/14/18 08/15/18 08/16/18 05:59 05:59 05:59 Intake Total 3327.8 2229 Output Total 3850 2400 Balance -522.2 -171 PT 18.3 SEC (12.0-15.0) H 08/08/18 21:40 INR 1.50 (0.83-1.16) H 08/08/18 21:40 General: sedated, no acute distress OP: intubated CV: RRR Resp: intubated and on vent Abd: Soft, NT Ext: +trace edema all extremities ICD10 Worksheet Patient Problems: Problems Problem Status Onset Acute renal failure Acute Aspiration pneumonia Acute Pancreatitis, acute Acute Septic shock Acute
--- NOTE | 2018-08-15 11:04 | ASMTCMCOM ---
CM Note CM Note Notes: Working towards extubation. Patient has new diagnosis of diabetes. CDiff being treated with po vanco. Patient remains on pressors. CM will follow. Date Signed: 08/15/2018 11:03 AM Electronically Signed By:Jamilah Arango LCSW
--- NOTE | 2018-08-15 11:17 | PDINTPN ---
Hair Specialist Progress Note Assessment/Plan: 53 M whose only known PMH included HTN and ETOH, was found obtunded by family on 08/07/18 and BIBA where he was intubated and started on pressors for severe acidosis presumed related to DKA and pancreatitis. He initially had a reported osmolar gap so was started on fomepazole, but this was dc'd when his propylene glycol and methyl alcohol levels were undectable. There was some question of aspiration as well so was started on Zosyn. * Severe metabolic acidosis- likely related to hyperosmolar non-ketotic hyperglycemia and DKA given initial glucose of 1318 (lactate of 4.5 also a contributor). Initial ABG had elements of both metabolic and respiratory acidosis since pCo2 was higher than expected. Also favoring HONK was minor ketones in urine and glucose >1000 with concomitant metabolic alkalosis. He was treated aggressively with IVF and insulin drip, which is now off. His HgB- A1c of 12% suggested long standing, untreated hyperglycemia and DM, which is common in his family members. Currently stable. * Acute respiratory failure with hypercapnia and hypoxemia, ventilator dependent - (vent day#9). Weaned well on PS10/CPAP5 starting 08/11. CXR 08/09 without significant infiltrate; CXR 08/12 with some LLL atelectasis. Extubated 08/13 but fentanyl drip not dc'd as ordered. After extubation he had difficulty managing secretions and would normalize sats, RR, HR with NT sucitoning (see RT notes). However, he developed hypercapnic respiratory failure later in the evening and required re-intubation. Secretions have been clear. His history of CRUZ also a contributor. Weaned today on 08/01, but may have increasing RR and low TV. Observe closely, but may need more conservative weaning. Last CXR 08/13 without significant infiltrate; if weaning doesnt progress, will recheck. * Pancreatitis with lipase >20,000 on admission and significant discomfort per family at that time. Now with soft abdomen and substantial decline in lipase ( likely at least partially pseudo-elevated in setting of UTE). Continue with IVF and TF (shown to be superior in pancreatitis as opposed to TPN). No evidence of necrosis on abdo CT * UTE- presumed related to hypotension/ATN, pancreatitis, and perhaps element of DM related nephropathy. Creatinine remains high but falling, and adequate UOP. HCO3 dc'd. Down to 3.1 today. * Hypotension- related to above. No clear evidence of ACS, adrenal insufficiency , bacteremia. Pressor requirement eliminated with dc fentayl/precedex. Resolved as of 08/15. * Thrombocytopenia- platelets were 170 on admission, but he was severely dehydrated at the time. May have been related to shock on arrival- continue to rise * ETOH- watching for signs of WD. Needs daily sedation vacation, with ongoing delerium assessment tools and pain assessment tools. Discussed on rounds. * C. Diff- started po vanco * * Critical care time 35 minutes Subjective: stable overnight. Remains on propofol at low dose Objective: Vital Signs Temp Pulse Resp BP Pulse Ox 37.3 C 95 21 H 138/57 H 96 08/15/18 10:00 08/15/18 10:00 08/15/18 10:00 08/15/18 10:00 08/15/18 10:00 Laboratory Results 08/15/18 04:30 08/15/18 04:30 08/14/18 08/15/18 08/16/18 05:59 05:59 05:59 Intake Total 3327.8 2229 Output Total 3850 2400 Balance -522.2 -171 PT 18.3 SEC (12.0-15.0) H 08/08/18 21:40 INR 1.50 (0.83-1.16) H 08/08/18 21:40 Physical Exam - Physical Exam General Appearance: no apparent distress, obtunded, obese EENT: PERRL/EOMI, ET tube Neck: supple Respiratory: lungs clear, normal breath sounds, decreased breath sounds, No respiratory distress, No accessory muscle use Cardiac/Chest: regular rate, rhythm, No edema Abdomen: non-tender, soft, No distended, No guarding, No rebound, No mass Skin: normal color, warm/dry, No cyanosis Lymphatic: no adenopathy Extremities: No pedal edema Neuro/Psych: cognition abnormalities, No abnormal refund clerk II-XII ICD10 Worksheet Patient Problems: Problems Problem Status Onset Acute renal failure Acute Aspiration pneumonia Acute Pancreatitis, acute Acute Septic shock Acute
--- NOTE | 2018-08-15 12:56 | HOSPPROG ---
Hospitalist Progress Note Assessment/Plan: # acute severe pancreatitis - d/t etOH - much improved # acute renal failure - pre-renal + ATN - follow K, slowly rising # acute respiratory failure - intubated in ED, extubated then reintubated - currently weaning # c. dif - on vanc PO; abd soft # shock - pressors weaned off today; suspect SIRS physiology as well as hypovolemia - abx stopped # severe metabolic acidosis - multifactorial, improved # diabetes, initial extremely hyperglycemia, A1c 12 - cont glargine # thrombocytopenia - improving # anemia - slow downward trend # FEN - getting enteral feeds Subjective: remains intubated, weaning trial today Objective: Vital Signs Temp Pulse Resp BP Pulse Ox 37.2 C 100 23 H 133/59 H 99 08/15/18 12:00 08/15/18 12:00 08/15/18 12:00 08/15/18 12:00 08/15/18 12:00 Laboratory Results 08/15/18 04:30 08/15/18 04:30 08/14/18 08/15/18 08/16/18 05:59 05:59 05:59 Intake Total 3327.8 2229 Output Total 3850 2400 Balance -522.2 -171 PT 18.3 SEC (12.0-15.0) H 08/08/18 21:40 INR 1.50 (0.83-1.16) H 08/08/18 21:40 45 mins of cc time managing shock and resp failure - Physical Exam Constitutional: other (intuibated, obtunded) Cardiovascular: regular rate and rhythym, no murmur, rub, or gallop Respiratory: inspiratory crackles (mild), other (coarse BS) Gastrointestinal: soft, non-tender abdomen, No guarding, No rebound, No distension ICD10 Worksheet Patient Problems: Problems Problem Status Onset Pancreatitis, acute Acute Septic shock Acute Acute renal failure Acute Aspiration pneumonia Acute
[2018-08-15] MEDS ORDERED: POTASSIUM Cl (KCl) 50 ML IV ONE (21:13)
[2018-08-16] MEDS: INSULIN LISPRO 100 UNIT/ML SC SCH ×4 (00:40→17:47)
[2018-08-16] MEDS: PROPOFOL/EMULSION 100 ML IV SCH ×4 (01:00→20:24)
[2018-08-16 04:39] LABS: PLATELET COUNT 131 10^3/uL (150-400)
[2018-08-16] MEDS: HEPARIN 5,000 UNIT/0.5 ML INJ SC SCH ×3 (05:41→22:02)
[2018-08-16] MEDS: VANCOMYCIN 125 MG/2.5 ML UDL PO SCH ×4 (05:41→20:24)
[2018-08-16] MEDS: CHLORHEXIDINE GLUCONATE 15 ML UDL PO SCH ×2 (09:21→20:24)
[2018-08-16] MEDS: THIAMINE HCL 100 MG TAB TUBE SCH (09:21)
[2018-08-16] MEDS: INSULIN GLARGINE 100 UNITS/ML UNIT SC SCH (09:21)
--- NOTE | 2018-08-16 09:50 | HOSPPROG ---
Hospitalist Progress Note Assessment/Plan: # acute severe pancreatitis - d/t etOH - much improved # acute renal failure - pre-renal + ATN - SCr improving, good UOP # volume overload - should improve with renal function # acute respiratory failure - intubated in ED, extubated then reintubated - attempting to wean again today # c. dif - on vanc PO; abd soft # shock - pressors weaned off today; suspect SIRS physiology as well as hypovolemia - abx stopped # severe metabolic acidosis - multifactorial, improved # diabetes, initial extremely hyperglycemia, A1c 12 - cont glargine # thrombocytopenia - improving # anemia - slow downward trend, but relatively stable # FEN - getting enteral feeds Subjective: was apneic whil trying to extubate Objective: Vital Signs Temp Pulse Resp BP Pulse Ox 37.2 C 75 13 117/51 L 100 08/16/18 08:00 08/16/18 08:00 08/16/18 08:00 08/16/18 08:00 08/16/18 08:00 Laboratory Results 08/16/18 04:35 08/16/18 04:35 08/15/18 08/16/18 08/17/18 05:59 05:59 05:59 Intake Total 2229 1235 Output Total 2400 2650 Balance -171 -1415 PT 18.3 SEC (12.0-15.0) H 08/08/18 21:40 INR 1.50 (0.83-1.16) H 08/08/18 21:40 CC ill due to ongoing respiratory failure - Physical Exam Constitutional: obese Cardiovascular: regular rate and rhythym, no murmur, rub, or gallop Respiratory: no respiratory distress, other (intubated; coarse BS) Gastrointestinal: normoactive bowel sounds, No guarding, No rebound, No distension ICD10 Worksheet Patient Problems: Problems Problem Status Onset Pancreatitis, acute Acute Septic shock Acute Acute renal failure Acute Aspiration pneumonia Acute
--- NOTE | 2018-08-16 11:08 | SOAPPROG ---
SOAP Progress Note Assessment/Plan: Assessment: 1. UTE and Volume Overload He is improving. Hemodynamic excellent, good net diuresis, Cr falling. Electrolytes look good. Diuretics can be given if desired. 2. Hyperglycemia May be causing some additional osmotic diuresis. 3. Anemia Hg drifting down. Monitor 4. Thrombocytopenia Improving. Subjective: Intubated. Wakens and responds Objective: Vital Signs Temp Pulse Resp BP Pulse Ox 37.3 C 81 16 134/61 H 100 08/16/18 10:00 08/16/18 10:00 08/16/18 10:00 08/16/18 10:00 08/16/18 10:00 Laboratory Results 08/16/18 04:35 08/16/18 04:35 08/15/18 08/16/18 08/17/18 05:59 05:59 05:59 Intake Total 2229 1235 Output Total 2400 2650 Balance -171 -1415 PT 18.3 SEC (12.0-15.0) H 08/08/18 21:40 INR 1.50 (0.83-1.16) H 08/08/18 21:40 Physical Exam - Physical Exam General Appearance: no apparent distress EENT: ET tube Respiratory: lungs clear Cardiac/Chest: regular rate, rhythm Abdomen: soft Male Genitalia: other (miranda) Rectal: other (tube in place) Extremities: swelling (1-2+ anasarca) ICD10 Worksheet Patient Problems: Problems Problem Status Onset Acute renal failure Acute Aspiration pneumonia Acute Pancreatitis, acute Acute Septic shock Acute
--- NOTE | 2018-08-16 11:26 | PDINTPN ---
Dermatology Physician Assistant Progress Note Assessment/Plan: 53 M whose only known PMH included HTN and ETOH, was found obtunded by family on 08/07/18 and BIBA where he was intubated and started on pressors for severe acidosis presumed related to DKA and pancreatitis. He initially had a reported osmolar gap so was started on fomepazole, but this was dc'd when his propylene glycol and methyl alcohol levels were undectable. There was some question of aspiration as well so was started on Zosyn. * Severe metabolic acidosis- likely related to hyperosmolar non-ketotic hyperglycemia and DKA given initial glucose of 1318 (lactate of 4.5 also a contributor). Initial ABG had elements of both metabolic and respiratory acidosis since pCo2 was higher than expected. Also favoring HONK was minor ketones in urine and glucose >1000 with concomitant metabolic alkalosis. He was treated aggressively with IVF and insulin drip, which is now off. His HgB- A1c of 12% suggested long standing, untreated hyperglycemia and DM, which is common in his family members. Currently stable. * Acute respiratory failure with hypercapnia and hypoxemia, ventilator dependent - (vent day#10). Extubated 08/13 but fentanyl drip not dc'd as ordered. After extubation he had difficulty managing secretions and would normalize sats, RR, HR with NT suctioning (see RT notes). However, he developed hypercapnic respiratory failure later in the evening and required re-intubation. Secretions have been clear. His history of CRUZ also a contributor. Making progress on weans. Plan 5/5 x 2 hrs BID today * Pancreatitis with lipase >20,000 on admission and significant discomfort per family at that time. Now with soft abdomen and substantial decline in lipase ( likely at least partially pseudo-elevated in setting of UTE). Continue with IVF and TF (shown to be superior in pancreatitis as opposed to TPN). No evidence of necrosis on abdo CT * UTE- presumed related to hypotension/ATN, pancreatitis, and perhaps element of DM related nephropathy. Creatinine remains high but falling, and adequate UOP. HCO3 dc'd. Creatinine continues to fall with excellent UOP * Hypotension- related to above. No clear evidence of ACS, adrenal insufficiency , bacteremia. Pressor requirement eliminated with dc fentayl/precedex. Resolved as of 08/15. * Thrombocytopenia- platelets were 170 on admission, but he was severely dehydrated at the time. May have been related to shock on arrival- continue to rise * ETOH- watching for signs of WD. Needs daily sedation vacation, with ongoing delerium assessment tools and pain assessment tools. Discussed on rounds. * C. Diff- started po vanco * * Critical care time 35 minutes 08/16/18 11:23 Subjective: weaned on both 08/01 and 03/01 well Objective: Vital Signs Temp Pulse Resp BP Pulse Ox 37.3 C 81 16 134/61 H 100 08/16/18 10:00 08/16/18 10:00 08/16/18 10:00 08/16/18 10:00 08/16/18 10:00 Laboratory Results 08/16/18 04:35 08/16/18 04:35 08/15/18 08/16/18 08/17/18 05:59 05:59 05:59 Intake Total 2229 1235 Output Total 2400 2650 Balance -171 -1415 PT 18.3 SEC (12.0-15.0) H 08/08/18 21:40 INR 1.50 (0.83-1.16) H 08/08/18 21:40 Physical Exam - Physical Exam General Appearance: no apparent distress, obtunded, obese EENT: PERRL/EOMI, ET tube Neck: supple Respiratory: lungs clear, normal breath sounds, decreased breath sounds, No respiratory distress, No accessory muscle use Cardiac/Chest: regular rate, rhythm, No edema Abdomen: non-tender, soft, No distended, No guarding, No rebound Skin: normal color, warm/dry, No cyanosis Lymphatic: no adenopathy Extremities: No pedal edema Neuro/Psych: cognition abnormalities, No abnormal child development director II-XII ICD10 Worksheet Patient Problems: Problems Problem Status Onset Acute renal failure Acute Aspiration pneumonia Acute Pancreatitis, acute Acute Septic shock Acute
[2018-08-16] MEDS: ACETYLCYSTEINE 20% IH/PO 4 ML VIAL IH SCH ×2 (12:15→15:18)
[2018-08-16] MEDS: ALBUTEROL 3 ML DEYVIAL IH SCH ×2 (12:15→15:18)
[2018-08-16] MEDS: FAMOTIDINE 20 MG TAB TUBE SCH (20:24)
[2018-08-16] MEDS: POTASSIUM Cl (KCl) 50 ML IV SCH ×3 (22:08→23:45)
[2018-08-17] MEDS: ACETYLCYSTEINE 20% IH/PO 4 ML VIAL IH SCH ×2 (00:46→06:05)
[2018-08-17] MEDS: ALBUTEROL 3 ML DEYVIAL IH SCH ×3 (00:47→06:05)
[2018-08-17] MEDS: INSULIN LISPRO 100 UNIT/ML SC SCH ×5 (01:47→23:48)
[2018-08-17] MEDS: PROPOFOL/EMULSION 100 ML IV SCH ×3 (01:53→07:47)
[2018-08-17] MEDS: VANCOMYCIN 125 MG/2.5 ML UDL PO SCH ×4 (05:53→20:56)
[2018-08-17] MEDS: HEPARIN 5,000 UNIT/0.5 ML INJ SC SCH ×3 (05:53→20:56)
[2018-08-17 06:13] LABS: PLATELET COUNT 147 10^3/uL (150-400)
[2018-08-17] MEDS: CHLORHEXIDINE GLUCONATE 15 ML UDL PO SCH ×2 (07:47→20:56)
[2018-08-17] MEDS: THIAMINE HCL 100 MG TAB TUBE SCH (07:47)
[2018-08-17] MEDS: INSULIN GLARGINE 100 UNITS/ML UNIT SC SCH (07:48)
--- NOTE | 2018-08-17 10:12 | HOSPPROG ---
Hospitalist Progress Note Assessment/Plan: # acute severe pancreatitis - d/t etOH - much improved # acute renal failure - pre-renal + ATN - SCr improving, good UOP # volume overload - getting some post-ATN diuresis - lasix IV today # acute respiratory failure - intubated in ED, extubated then reintubated - attempting to wean again today - checking pct and BNP today # c. dif - on vanc PO; abd soft # shock - off pressors, suspect SIRS physiology as well as hypovolemia - abx stopped # severe metabolic acidosis - multifactorial, improved # diabetes, initial extreme hyperglycemia, A1c 12 - cont glargine # thrombocytopenia - improving # anemia - slow downward trend, but relatively stable # FEN - getting enteral feeds Subjective: off sedation; responding appropriately but still intubated Objective: Vital Signs Temp Pulse Resp BP Pulse Ox 37.2 C 80 17 127/83 H 100 08/17/18 08:00 08/17/18 08:00 08/17/18 08:00 08/17/18 08:00 08/17/18 08:00 Laboratory Results 08/17/18 05:45 08/17/18 05:45 08/16/18 08/17/18 08/18/18 05:59 05:59 05:59 Intake Total 1235 1928 Output Total 2650 1250 Balance -1415 678 PT 18.3 SEC (12.0-15.0) H 08/08/18 21:40 INR 1.50 (0.83-1.16) H 08/08/18 21:40 35 mins CC time, resp failure requiring intubation - Physical Exam Constitutional: chronically ill appearing Ears, Nose, Mouth, Throat: other (ET tube) Cardiovascular: regular rate and rhythym, no murmur, rub, or gallop Respiratory: inspiratory crackles, rhonchi, other (coarse throughout) Gastrointestinal: soft, non-tender abdomen, no palpable masses, No guarding, No rebound Genitourinary: miranda in urethra ICD10 Worksheet Patient Problems: Problems Problem Status Onset Pancreatitis, acute Acute Septic shock Acute Acute renal failure Acute Aspiration pneumonia Acute
[2018-08-17] MEDS ORDERED: FUROSEMIDE 40 MG/4 ML VIAL IVP ONE (10:13)
--- NOTE | 2018-08-17 10:15 | SOAPPROG ---
SOAP Progress Note Assessment/Plan: Assessment: 1. UTE and Volume Overload Cr falling. Non oliguric. Has quite a bit of obligatory intake. Will give a dose of furosemide. 2. Hyperglycemia Insulin dose titrated upward 3. Anemia Hg drifting down. Monitor 4. Thrombocytopenia Improving. 5. Tube feeds Getting 100m flush q2h. Na stable. 08/17/18 10:13 Subjective: Responds Objective: Vital Signs Temp Pulse Resp BP Pulse Ox 37.2 C 82 18 142/66 H 100 08/17/18 08:00 08/17/18 10:00 08/17/18 10:00 08/17/18 10:00 08/17/18 10:00 Laboratory Results 08/17/18 05:45 08/17/18 05:45 08/16/18 08/17/18 08/18/18 05:59 05:59 05:59 Intake Total 1235 1928 Output Total 2650 1250 Balance -1415 678 PT 18.3 SEC (12.0-15.0) H 08/08/18 21:40 INR 1.50 (0.83-1.16) H 08/08/18 21:40 Physical Exam - Physical Exam General Appearance: no apparent distress EENT: ET tube Respiratory: lungs clear Cardiac/Chest: regular rate, rhythm Abdomen: soft Rectal: other (tube in place draining liquid stool) Extremities: pedal edema ICD10 Worksheet Patient Problems: Problems Problem Status Onset Acute renal failure Acute Aspiration pneumonia Acute Pancreatitis, acute Acute Septic shock Acute
[2018-08-17] MEDS ORDERED: FUROSEMIDE 40 MG/4 ML VIAL ONE (13:01)
--- NOTE | 2018-08-17 16:24 | PDINTPN ---
Roof Shingler Progress Note Assessment/Plan: 53 M whose only known PMH included HTN and ETOH, was found obtunded by family on 08/07/18 and BIBA where he was intubated and started on pressors for severe acidosis presumed related to DKA and pancreatitis. He initially had a reported osmolar gap so was started on fomepazole, but this was dc'd when his propylene glycol and methyl alcohol levels were undectable. There was some question of aspiration as well so was started on Zosyn. * Severe metabolic acidosis- likely related to hyperosmolar non-ketotic hyperglycemia and DKA given initial glucose of 1318 (lactate of 4.5 also a contributor). Initial ABG had elements of both metabolic and respiratory acidosis since pCo2 was higher than expected. Also favoring HONK was minor ketones in urine and glucose >1000 with concomitant metabolic alkalosis. He was treated aggressively with IVF and insulin drip, which is now off. His HgB- A1c of 12% suggested long standing, untreated hyperglycemia and DM, which is common in his family members. Currently stable. * Acute respiratory failure with hypercapnia and hypoxemia, ventilator dependent - (vent day#11). Extubated 08/13 but fentanyl drip not dc'd as ordered. After extubation he had difficulty managing secretions and would normalize sats, RR, HR with NT suctioning (see RT notes). However, he developed hypercapnic respiratory failure later in the evening and required re-intubation. Secretions have been clear. His history of CRUZ also a contributor. Making progress on weans. CXR hypoventilatory but no clear CHF though BNP elevated (as is PCT). Given lasix this am by renal and weaning all day on minimal PS. Trial of TC this afternoon and if successful plan extubation in AM. * Pancreatitis with lipase >20,000 on admission and significant discomfort per family at that time. Now with soft abdomen and substantial decline in lipase ( likely at least partially pseudo-elevated in setting of UTE). Continue with IVF and TF (shown to be superior in pancreatitis as opposed to TPN). No evidence of necrosis on abdo CT * UTE- presumed related to hypotension/ATN, pancreatitis, and perhaps element of DM related nephropathy. Creatinine remains high but falling, and adequate UOP. HCO3 dc'd. Creatinine continues to fall with excellent UOP * Hypotension- related to above. No clear evidence of ACS, adrenal insufficiency , bacteremia. Pressor requirement eliminated with dc fentayl/precedex. Resolved as of 08/15. * Thrombocytopenia- platelets were 170 on admission, but he was severely dehydrated at the time. May have been related to shock on arrival- continue to rise * ETOH- watching for signs of WD. Needs DAILY sedation vacation, with ongoing delerium assessment tools and pain assessment tools. Discussed on rounds. * C. Diff- started po vanco * * Critical care time 35 minutes 08/16/18 11:23 08/17/18 16:22 Subjective: stable overnight. Much more alert today Objective: Vital Signs Temp Pulse Resp BP Pulse Ox 37.2 C 91 27 H 140/69 H 100 08/17/18 08:00 08/17/18 14:00 08/17/18 14:00 08/17/18 14:00 08/17/18 14:00 Laboratory Results 08/17/18 05:45 08/17/18 05:45 08/16/18 08/17/18 08/18/18 05:59 05:59 05:59 Intake Total 1235 1928 Output Total 2650 1250 Balance -1415 678 PT 18.3 SEC (12.0-15.0) H 08/08/18 21:40 INR 1.50 (0.83-1.16) H 08/08/18 21:40 Physical Exam - Physical Exam General Appearance: alert, no apparent distress, obese EENT: PERRL/EOMI, ET tube Neck: supple Respiratory: lungs clear, normal breath sounds, decreased breath sounds, No respiratory distress, No accessory muscle use Cardiac/Chest: regular rate, rhythm, No edema Abdomen: non-tender, soft, No distended, No guarding, No rebound Skin: normal color, warm/dry, No cyanosis Lymphatic: no adenopathy Extremities: No pedal edema Neuro/Psych: alert, cognition abnormalities, No abnormal collections clerk II-XII ICD10 Worksheet Patient Problems: Problems Problem Status Onset Acute renal failure Acute Aspiration pneumonia Acute Pancreatitis, acute Acute Septic shock Acute
[2018-08-17] MEDS: FAMOTIDINE 20 MG TAB TUBE SCH (20:56)
[2018-08-17] MEDS ORDERED: POTASSIUM Cl (KCl) 50 ML IV ONE (22:59)
[2018-08-18] MEDS: VANCOMYCIN 125 MG/2.5 ML UDL PO SCH ×4 (05:18→21:18)
[2018-08-18] MEDS: HEPARIN 5,000 UNIT/0.5 ML INJ SC SCH ×3 (05:18→21:18)
[2018-08-18] MEDS: INSULIN LISPRO 100 UNIT/ML SC SCH ×4 (05:19→23:47)
[2018-08-18 05:38] LABS: PLATELET COUNT 163 10^3/uL (150-400)
--- NOTE | 2018-08-18 09:01 | SOAPPROG ---
SOAP Progress Note Assessment/Plan: Assessment/Plan: 53 y/o M with a known h/o DM who presented after being found down with DKA and severe pancreatitis with UTE and severe metabolic acidosis now improving. UTE: - likely ATN in setting of severe pancreatitis and shock - Cr down from 5.3 to 2.0 today - No indication for dialysis - will sign off, please contact if further questions Acidemia: - resolved Hypernatremia: - Resolved HTN/vol: - may continue lasix - monitor lytes - keep MAP>65 08/18/18 10:31 Subjective: Still intubated. No family present. Objective: Vital Signs Temp Pulse Resp BP Pulse Ox 37.1 C 96 23 H 143/71 H 98 08/18/18 04:00 08/18/18 06:00 08/18/18 06:00 08/18/18 06:00 08/18/18 06:00 Laboratory Results 08/18/18 05:20 08/18/18 05:20 08/17/18 08/18/18 08/19/18 05:59 05:59 05:59 Intake Total 1928 2184 Output Total 1250 1100 Balance 678 1084 PT 18.3 SEC (12.0-15.0) H 08/08/18 21:40 INR 1.50 (0.83-1.16) H 08/08/18 21:40 Physical Exam - Physical Exam General Appearance: no apparent distress, obese, other (sedated) EENT: PERRL/EOMI Neck: non-tender, full range of motion, supple Respiratory: decreased breath sounds Cardiac/Chest: normal peripheral pulses, regular rate, rhythm, edema Abdomen: normal bowel sounds, non-tender, distended Skin: pallor Extremities: normal range of motion, pedal edema Neuro/Psych: other ICD10 Worksheet Patient Problems: Problems Problem Status Onset Acute renal failure Acute Aspiration pneumonia Acute Pancreatitis, acute Acute Septic shock Acute
[2018-08-18] MEDS: CHLORHEXIDINE GLUCONATE 15 ML UDL PO SCH ×2 (09:10→20:30)
[2018-08-18] MEDS: THIAMINE HCL 100 MG TAB TUBE SCH (09:10)
[2018-08-18] MEDS: INSULIN GLARGINE 100 UNITS/ML UNIT SC SCH (09:10)
--- NOTE | 2018-08-18 09:22 | PDINTPN ---
Non Destructive Testing Engineer Progress Note Assessment/Plan: Assessment/Plan: * Severe metabolic acidosis- Initial ABG had elements of both metabolic and respiratory acidosis since pCo2 was higher than expected. Also favoring HONK was minor ketones in urine and glucose >1000 with concomitant metabolic alkalosis. He was treated aggressively with IVF and insulin drip, which is now off. His HgB-A1c of 12% suggested long standing, untreated hyperglycemia and DM , which is common in his family members. Currently stable. * Hyperosmolar nonketotic state * Acute respiratory failure with hypercapnia and hypoxemia, ventilator dependent - (vent day#11). Extubated 08/13 but fentanyl drip not dc'd as ordered. After extubation he had difficulty managing secretions and would normalize sats, RR, HR with NT suctioning (see RT notes). However, he developed hypercapnic respiratory failure later in the evening and required re-intubation. Secretions have been clear. His history of CRUZ also a contributor. Making progress on weans. CXR hypoventilatory but no clear CHF though BNP elevated (as is PCT). Given lasix this am by renal and weaning all day on minimal PS. Trial of TC this afternoon and if successful plan extubation in AM. Increased secretions today -bronchoscopy later on today -assess for extubation soon * Pancreatitis with lipase >20,000 on admission and significant discomfort per family at that time. Now with soft abdomen and substantial decline in lipase ( likely at least partially pseudo-elevated in setting of UTE). Continue with IVF and TF (shown to be superior in pancreatitis as opposed to TPN). No evidence of necrosis on abdo CT * UTE- presumed related to hypotension/ATN, pancreatitis, and perhaps element of DM related nephropathy. Creatinine remains high but falling, and adequate UOP. HCO3 dc'd. Creatinine continues to fall with excellent UOP * Hypotension- related to above. No clear evidence of ACS, adrenal insufficiency , bacteremia. Pressor requirement eliminated with dc fentayl/precedex. Resolved as of 08/15. * Thrombocytopenia- platelets were 170 on admission, but he was severely dehydrated at the time. May have been related to shock on arrival- continue to rise * ETOH- watching for signs of WD. Needs DAILY sedation vacation, with ongoing delerium assessment tools and pain assessment tools. Discussed on rounds. * C. Diff- started po vanco * VT prophylaxis * Stress ulcer prophylaxis * Sedation-adequate Subjective: Sedated on mechanical ventilation Objective: Vital Signs Temp Pulse Resp BP Pulse Ox 37.1 C 96 23 H 143/71 H 98 08/18/18 04:00 08/18/18 06:00 08/18/18 06:00 08/18/18 06:00 08/18/18 06:00 Laboratory Results 08/18/18 05:20 08/18/18 05:20 08/17/18 08/18/18 08/19/18 05:59 05:59 05:59 Intake Total 1928 2184 Output Total 1250 1100 300 Balance 678 1084 -300 PT 18.3 SEC (12.0-15.0) H 08/08/18 21:40 INR 1.50 (0.83-1.16) H 08/08/18 21:40 - Time Spent With Patient Time Spent With Patient: 35 min of critical care time spent with patient. Case discussed with respiratory therapy and nursing Physical Exam - Physical Exam General Appearance: other (Sedated), No alert EENT: PERRL/EOMI, ET tube Neck: non-tender Respiratory: chest non-tender, lungs clear Cardiac/Chest: normal peripheral pulses, regular rate, rhythm Peripheral Pulses: 2+: carotid (R), carotid (L), femoral (R), femoral (L), dorsalis-pedis (R), dorsalis-pedis (L) Abdomen: non-tender, soft Male Genitalia: deferred Rectal: deferred Skin: normal color Extremities: non-tender Neuro/Psych: alert ICD10 Worksheet Patient Problems: Problems Problem Status Onset Acute renal failure Acute Aspiration pneumonia Acute Pancreatitis, acute Acute Septic shock Acute
[2018-08-18] MEDS ORDERED: LIDOCAINE 2% JELLY 5 ML TUBE TP ONE (10:37)
[2018-08-18] MEDS ORDERED: LIDOCAINE 1% 300 MG/30 ML SDV MISC ONE (10:37)
[2018-08-18] MEDS ORDERED: fentaNYL 100 MCG/2 ML INJ ONE (11:01)
[2018-08-18] MEDS ORDERED: MIDAZOLAM 2 MG/2 ML VIAL ONE (11:01)
--- NOTE | 2018-08-18 11:02 | HOSPPROG ---
Hospitalist Progress Note Assessment/Plan: # acute severe pancreatitis - d/t etOH - much improved # acute renal failure - pre-renal + ATN - SCr improving, good UOP # volume overload - getting some post-ATN diuresis - lasix 40 IV daily for now # acute respiratory failure - intubated in ED, extubated then reintubated - bronch today - attempting to wean again today # c. dif - on vanc PO; abd soft # shock - off pressors, suspect SIRS physiology as well as hypovolemia - abx stopped # severe metabolic acidosis - multifactorial, improved # diabetes, initial extreme hyperglycemia, A1c 12 - cont glargine # thrombocytopenia - improving # anemia - slow downward trend, but relatively stable # FEN - getting enteral feeds Subjective: t-pieced last night, then back on vent; on cpap today Objective: Vital Signs Temp Pulse Resp BP Pulse Ox 37.1 C 114 H 38 H 143/64 H 94 08/18/18 04:00 08/18/18 10:00 08/18/18 10:00 08/18/18 10:00 08/18/18 10:00 Laboratory Results 08/18/18 05:20 08/18/18 05:20 08/17/18 08/18/18 08/19/18 05:59 05:59 05:59 Intake Total 1928 2184 Output Total 1250 1100 300 Balance 678 1084 -300 PT 18.3 SEC (12.0-15.0) H 08/08/18 21:40 INR 1.50 (0.83-1.16) H 08/08/18 21:40 35 mins CC time managing resp failure - Physical Exam Constitutional: chronically ill appearing Cardiovascular: regular rate and rhythym, no murmur, rub, or gallop Respiratory: no respiratory distress, no rales or rhonchi, other (coarse BS, intubated) Gastrointestinal: soft, non-tender abdomen, no palpable masses, No guarding, No rebound Genitourinary: other (condom cath) ICD10 Worksheet Patient Problems: Problems Problem Status Onset Pancreatitis, acute Acute Septic shock Acute Acute renal failure Acute Aspiration pneumonia Acute
[2018-08-18] MEDS ORDERED: fentaNYL 100 MCG/2 ML INJ IV ONE (11:15)
[2018-08-18] MEDS ORDERED: MIDAZOLAM 2 MG/2 ML VIAL IVP ONE (11:15)
[2018-08-18] MEDS: FUROSEMIDE 40 MG/4 ML VIAL IVP SCH (11:38)
[2018-08-18] MEDS: PROPOFOL/EMULSION 100 ML IV SCH ×2 (12:42→21:13)
--- NOTE | 2018-08-18 13:25 | GPN ---
PROCEDURE: Fiberoptic bronchoscopy. INDICATION: Respiratory failure, increased secretions. ANESTHESIA GIVEN: Patient is currently sedated on mechanical ventilation. He was given Versed 2 mg and fentanyl 50 mcg. DESCRIPTION OF PROCEDURE: Procedure was performed in the intensive care unit with continuous pulse o x, EKG, and blood pressure monitoring. Bronchoscope was entered through a #7.5 endotracheal tube. Distal trachea and nina were visualized , showed copious amounts of thin whitish secretions that were therapeutically aspirated. Bronchoscop e was in the right lung. Right upper lobe, right middle lobe, and right lower lobe, including subseg ments were visualized and again showed copious amounts of thin secretions that were therapeutically a spirated. Bronchoscope was entered in the left lung. Left upper lobe, lingula, left lower lobe, including subs egments were visualized and showed moderate amount of thin secretions that were therapeutically aspir ated. Bronchoscope was then removed. The patient tolerated the procedure well with no apparent comp lications. Portable chest x-ray has been called for. /[id number]/MODL
--- NOTE | 2018-08-18 15:03 | ASMTCMCOM ---
CM Note CM Note Notes: Patient continues on the vent. Was bronced today. He has been calm, and follows commands. RT doing C-pap trials in hopes to extubate. Sister, Maria G has been at bedside. Date Signed: 08/18/2018 03:03 PM Electronically Signed By:Vanita Parson LCSW
[2018-08-18] MEDS ORDERED: FUROSEMIDE 40 MG/4 ML VIAL IVP ONE (16:37)
[2018-08-18] MEDS: FAMOTIDINE 20 MG TAB TUBE SCH (21:18)
[2018-08-18] MEDS ORDERED: POTASSIUM CL 20 MEQ/15 ML UDCUP PO ONE ×2 (21:29→23:45)
[2018-08-19 04:44] LABS: PLATELET COUNT 150 10^3/uL (150-400)
[2018-08-19] MEDS: INSULIN LISPRO 100 UNIT/ML SC SCH ×3 (06:27→18:01)
[2018-08-19] MEDS: HEPARIN 5,000 UNIT/0.5 ML INJ SC SCH ×3 (06:27→21:44)
[2018-08-19] MEDS: VANCOMYCIN 125 MG/2.5 ML UDL PO SCH ×4 (06:27→21:44)
[2018-08-19] MEDS: FUROSEMIDE 40 MG/4 ML VIAL IVP SCH ×2 (08:44→17:55)
[2018-08-19] MEDS: INSULIN GLARGINE 100 UNITS/ML UNIT SC SCH (08:44)
[2018-08-19] MEDS: CHLORHEXIDINE GLUCONATE 15 ML UDL PO SCH ×2 (08:44→21:44)
[2018-08-19] MEDS: THIAMINE HCL 100 MG TAB TUBE SCH (08:45)
[2018-08-19] MEDS ORDERED: POTASSIUM Cl (KCl) 50 ML IV ONE (08:51)
--- NOTE | 2018-08-19 08:55 | PDINTPN ---
Client Support Administrator Progress Note Assessment/Plan: Assessment/Plan: * Severe metabolic acidosis- Initial ABG had elements of both metabolic and respiratory acidosis since pCo2 was higher than expected. Also favoring HONK was minor ketones in urine and glucose >1000 with concomitant metabolic alkalosis. He was treated aggressively with IVF and insulin drip, which is now off. His HgB-A1c of 12% suggested long standing, untreated hyperglycemia and DM , which is common in his family members. Currently stable. * Hyperosmolar nonketotic state * Acute respiratory failure with hypercapnia and hypoxemia, ventilator dependent - (vent day#11). Extubated 08/13 but fentanyl drip not dc'd as ordered. After extubation he had difficulty managing secretions and would normalize sats, RR, HR with NT suctioning (see RT notes). However, he developed hypercapnic respiratory failure later in the evening and required re-intubation. Secretions have been clear. His history of CRUZ also a contributor. Making progress on weans. CXR hypoventilatory but no clear CHF though BNP elevated (as is PCT). Given lasix this am by renal and weaning all day on minimal PS. Trial of TC this afternoon and if successful plan extubation in AM. Minimal secretions on bronchoscopy yesterday -assess for extubation today * Pancreatitis with lipase >20,000 on admission and significant discomfort per family at that time. Now with soft abdomen and substantial decline in lipase ( likely at least partially pseudo-elevated in setting of UTE). Continue with IVF and TF (shown to be superior in pancreatitis as opposed to TPN). No evidence of necrosis on abdo CT * UTE- presumed related to hypotension/ATN, pancreatitis, and perhaps element of DM related nephropathy. Creatinine remains high but falling, and adequate UOP. HCO3 dc'd. Creatinine continues to fall with excellent UOP * Hypotension- related to above. No clear evidence of ACS, adrenal insufficiency , bacteremia. Pressor requirement eliminated with dc fentayl/precedex. Resolved as of 08/15. * Thrombocytopenia- platelets were 170 on admission, but he was severely dehydrated at the time. May have been related to shock on arrival- continue to rise * ETOH- watching for signs of WD. Needs DAILY sedation vacation, with ongoing delerium assessment tools and pain assessment tools. Discussed on rounds. * C. Diff- started po vanco * Mental status-the awake and alert. * VT prophylaxis * Stress ulcer prophylaxis * Sedation-adequate Subjective: Awake and alert on mechanical ventilation Objective: Vital Signs Temp Pulse Resp BP Pulse Ox 38.4 C H 89 26 H 131/56 H 100 08/19/18 04:00 08/19/18 06:00 08/19/18 06:00 08/19/18 06:00 08/19/18 06:00 Laboratory Results 08/19/18 04:15 08/19/18 04:15 08/18/18 08/19/18 08/20/18 05:59 05:59 05:59 Intake Total 2184 2475.2 Output Total 1100 1550 Balance 1084 925.2 PT 18.3 SEC (12.0-15.0) H 08/08/18 21:40 INR 1.50 (0.83-1.16) H 08/08/18 21:40 Laboratory Results 08/19/18 04:15 08/19/18 04:15 08/19/18 04:15 Calcium 8.1 mg/dL L mg/dL (8.5 - 10.4) Phosphorus 4.6 mg/dL H mg/dL (2.5 - 4.5) Albumin 2.5 g/dL L g/dL (3.5 - 5.0) - Time Spent With Patient Time Spent With Patient: 35 min of critical care time spent with patient. Case discussed with nursing and respiratory therapy Physical Exam - Physical Exam General Appearance: alert, no apparent distress EENT: PERRL/EOMI, ET tube Neck: non-tender Respiratory: rhonchi (Few scattered), No respiratory distress, No wheezing Cardiac/Chest: normal peripheral pulses, regular rate, rhythm Peripheral Pulses: 2+: carotid (R), carotid (L), femoral (R), femoral (L), dorsalis-pedis (R), dorsalis-pedis (L) Abdomen: normal bowel sounds, non-tender, soft Male Genitalia: deferred Rectal: deferred Skin: normal color, warm/dry Extremities: normal range of motion, non-tender, normal inspection, normal capillary refill Neuro/Psych: alert ICD10 Worksheet Patient Problems: Problems Problem Status Onset Acute renal failure Acute Aspiration pneumonia Acute Pancreatitis, acute Acute Septic shock Acute
--- NOTE | 2018-08-19 16:16 | ASMTCMCOM ---
CM Note CM Note Notes: Patient had financial concerns. His income is too high for Medicaid. Financial Counselor met with him and he could have CIC[employer] as a secondary ins. Date Signed: 08/19/2018 04:15 PM Electronically Signed By:Vanita Parson LCSW
--- NOTE | 2018-08-19 17:06 | ASMTCMCOM ---
CM Note CM Note Notes: Please disregard CM Note 08/19/2016-written on wrong patient. Date Signed: 08/19/2018 05:05 PM Electronically Signed By:Vanita Parson LCSW
--- NOTE | 2018-08-19 17:09 | ASMTCMCOM ---
CM Note CM Note Notes: Medicaid Specialist visited with patient's sister and determined that he is eligible for Medicaid, she started that application. Patient has been extubated. Date Signed: 08/19/2018 05:08 PM Electronically Signed By:Vanita Parson LCSW
--- NOTE | 2018-08-19 18:23 | PDINTPN ---
[employer] Progress Note Assessment/Plan: 53 M whose only known PMH included HTN and ETOH, was found obtunded by family on 08/07/18 and BIBA where he was intubated and started on pressors for severe acidosis presumed related to DKA and pancreatitis. He initially had a reported osmolar gap so was started on fomepazole, but this was dc'd when his propylene glycol and methyl alcohol levels were undectable. There was some question of aspiration as well so was started on Zosyn. * CTSP around 1800 for sudden desaturation and minimal responsiveness. Seen earlier today by Dr. Fields where he was quite stable on Tpiece and was easily extubated. He remained stable all day then fell asleep and had desaturation and decline in mental status. No significant secretions both pre and post-extubation , and had FOB without significant mucous plugging. Placed on AVAPS (Bipap) with resulting increase in sats and improved mental status. He is currently responsive to voice, though still tachypneic. I suspect this related to CRUZ given his rapid response to both NIPPV and jaw thrust maneuvers. Check ABG now and again in 1 hour, hoping to avoid replacing ETT. Discussed in detail with charge nurse, bedside nurse and RT. Remaining issues as per Dr. Fields. * * critical care time 30 minutes * * * * * * * Severe metabolic acidosis- likely related to hyperosmolar non-ketotic hyperglycemia and DKA given initial glucose of 1318 (lactate of 4.5 also a contributor). Initial ABG had elements of both metabolic and respiratory acidosis since pCo2 was higher than expected. Also favoring HONK was minor ketones in urine and glucose >1000 with concomitant metabolic alkalosis. He was treated aggressively with IVF and insulin drip, which is now off. His HgB- A1c of 12% suggested long standing, untreated hyperglycemia and DM, which is common in his family members. Currently stable. * Acute respiratory failure with hypercapnia and hypoxemia, ventilator dependent - (vent day#11). Extubated 08/13 but fentanyl drip not dc'd as ordered. After extubation he had difficulty managing secretions and would normalize sats, RR, HR with NT suctioning (see RT notes). However, he developed hypercapnic respiratory failure later in the evening and required re-intubation. Secretions have been clear. His history of CRUZ also a contributor. Making progress on weans. CXR hypoventilatory but no clear CHF though BNP elevated (as is PCT). Given lasix this am by renal and weaning all day on minimal PS. Trial of TC this afternoon and if successful plan extubation in AM. * Pancreatitis with lipase >20,000 on admission and significant discomfort per family at that time. Now with soft abdomen and substantial decline in lipase ( likely at least partially pseudo-elevated in setting of UTE). Continue with IVF and TF (shown to be superior in pancreatitis as opposed to TPN). No evidence of necrosis on abdo CT * UTE- presumed related to hypotension/ATN, pancreatitis, and perhaps element of DM related nephropathy. Creatinine remains high but falling, and adequate UOP. HCO3 dc'd. Creatinine continues to fall with excellent UOP * Hypotension- related to above. No clear evidence of ACS, adrenal insufficiency , bacteremia. Pressor requirement eliminated with dc fentayl/precedex. Resolved as of 08/15. * Thrombocytopenia- platelets were 170 on admission, but he was severely dehydrated at the time. May have been related to shock on arrival- continue to rise * ETOH- watching for signs of WD. Needs DAILY sedation vacation, with ongoing delerium assessment tools and pain assessment tools. Discussed on rounds. * C. Diff- started po vanco * 08/16/18 11:23 08/17/18 16:22 08/19/18 18:19 Subjective: CTSP for desaturation Objective: Vital Signs Temp Pulse Resp BP Pulse Ox 37.1 C 104 H 25 H 136/57 H 96 08/19/18 18:00 08/19/18 18:00 08/19/18 18:00 08/19/18 18:00 08/19/18 18:00 Laboratory Results 08/19/18 04:15 08/19/18 04:15 08/18/18 08/19/18 08/20/18 05:59 05:59 05:59 Intake Total 2184 2475.2 519 Output Total 1100 1550 2750 Balance 1084 925.2 -2231 PT 18.3 SEC (12.0-15.0) H 08/08/18 21:40 INR 1.50 (0.83-1.16) H 08/08/18 21:40 Physical Exam - Physical Exam General Appearance: mild distress, obese EENT: PERRL/EOMI Neck: supple Respiratory: respiratory distress (mild), accessory muscle use, decreased breath sounds, No rales, No rhonchi, No wheezing Cardiac/Chest: regular rate, rhythm, No edema Abdomen: non-tender, soft, No distended Skin: normal color, warm/dry, No cyanosis Lymphatic: no adenopathy Extremities: No pedal edema Neuro/Psych: cognition abnormalities, No abnormal airborne electronics analyst [id number] ICD10 Worksheet Patient Problems: Problems Problem Status Onset Acute renal failure Acute Aspiration pneumonia Acute Pancreatitis, acute Acute Septic shock Acute
[2018-08-19] MEDS: FAMOTIDINE 20 MG TAB TUBE SCH (21:44)
--- NOTE | 2018-08-19 23:51 | HOSPPROG ---
Hospitalist Progress Note Assessment/Plan: Assessment: 53 yo M p/w acute pancreatitis c/b acute respiratory failure, acute diastolic CHF, ATN Plan: # acute severe pancreatitis - d/t etOH, resolved # ATN - initially hypovolemic, now non-oliguric # acute diastolic CHF exacerbation - acute, new problem to this provider, further w/u indicated. Net positive 28kg LOS, CXR w/ interstitial infiltrates ( personally interpreted) -d/w Dr. Fields on team rounds, we agreed to increase lasix to 40mg IV bid (BP permitting) to increase diuresis -monitoring Cr/K w/ significant diuresis # acute hypoxic and hypercapnic respiratory failure - likely 2/2 combination of CHF, CRUZ, shock -BiPAP tonight -repeat ABG in AM # c. dif - on vanc PO; abd soft # hypovolemic shock - off pressors, suspect hypovolemia -with recurrent fever, monitoring WBC # acute metabolic acidosis - multifactorial, improved # diabetes, initial extreme hyperglycemia, A1c 12 - cont glargine and ISS # thrombocytopenia - improving # anemia - slow downward trend, but relatively stable diet. low K ppx. high risk, hep SC code. full dispo. ADD uncertain, remains critically ill Subjective: patient reports no pain Objective: Vital Signs Temp Pulse Resp BP Pulse Ox 37.9 C 89 21 H 128/74 H 100 08/19/18 20:00 08/19/18 21:48 08/19/18 21:48 08/19/18 21:48 08/19/18 21:48 Laboratory Results 08/19/18 04:15 08/19/18 04:15 08/18/18 08/19/18 08/20/18 05:59 05:59 05:59 Intake Total 2184 2475.2 519 Output Total 1100 1550 2750 Balance 1084 925.2 -2231 PT 18.3 SEC (12.0-15.0) H 08/08/18 21:40 INR 1.50 (0.83-1.16) H 08/08/18 21:40 - Physical Exam Constitutional: not in pain, chronically ill appearing, uncomfortable, unkempt Cardiovascular: regular rate and rhythym, no murmur, rub, or gallop, JVD, edema (2+ bilat LE) Respiratory: reduced air movement (bilat bases), inspiratory crackles (bilat ), No expiratory wheeze, No bronchial breath sounds Gastrointestinal: normoactive bowel sounds, soft, non-tender abdomen, no palpable masses, distension Psychiatric: not anxious, flat affect, poor memory, No agitated ICD10 Worksheet Patient Problems: Problems Problem Status Onset Pancreatitis, acute Acute Septic shock Acute Acute renal failure Acute Aspiration pneumonia Acute
[2018-08-20] MEDS: INSULIN LISPRO 100 UNIT/ML SC SCH ×4 (02:28→17:27)
[2018-08-20 04:40] LABS: PLATELET COUNT 152 10^3/uL (150-400)
[2018-08-20] MEDS: HEPARIN 5,000 UNIT/0.5 ML INJ SC SCH ×3 (06:14→20:45)
[2018-08-20] MEDS: VANCOMYCIN 125 MG/2.5 ML UDL PO SCH ×5 (07:01→19:19)
[2018-08-20] MEDS: POTASSIUM Cl (KCl) 50 ML IV SCH ×3 (08:11→09:20)
[2018-08-20] MEDS: FUROSEMIDE 40 MG/4 ML VIAL IVP SCH ×2 (08:13→14:33)
[2018-08-20] MEDS: CHLORHEXIDINE GLUCONATE 15 ML UDL PO SCH (08:23)
--- NOTE | 2018-08-20 08:40 | PDINTPN ---
[employer] Progress Note Assessment/Plan: Assessment/Plan: * Severe metabolic acidosis-resolved * Hyperosmolar nonketotic state-resolved * Acute respiratory failure with hypercapnia and hypoxemia. Extubated yesterday. Had some problems last night with hypoxemia and mild hypercarbia. This has resolved. He is currently on room air * Pancreatitis with lipase >20,000 on admission and significant discomfort per family at that time. Now with soft abdomen and substantial decline in lipase ( likely at least partially pseudo-elevated in setting of UTE). Continue with IVF and TF (shown to be superior in pancreatitis as opposed to TPN). No evidence of necrosis on abdo CT * UTE- presumed related to hypotension/ATN, pancreatitis, and perhaps element of DM related nephropathy. Continues to improve * Hypotension- related to above. No clear evidence of ACS, adrenal insufficiency , bacteremia. Pressor requirement eliminated with dc fentayl/precedex. Resolved as of 08/15. * Thrombocytopenia- platelets were 170 on admission, but he was severely dehydrated at the time. May have been related to shock on arrival- continue to rise * ETOH- no signs of withdrawal * C. Diff- started po vanco * Mental status-the awake and alert. * VT prophylaxis * Stress ulcer prophylaxis * Sedation-adequate Subjective: Sitting up in chair. Awake and alert. Breathing easily. No pain. No current complaints. Objective: Vital Signs Temp Pulse Resp BP Pulse Ox 37 C 84 27 H 130/75 H 99 08/20/18 00:00 08/20/18 06:00 08/20/18 06:00 08/20/18 06:00 08/20/18 06:00 Laboratory Results 08/20/18 04:10 08/20/18 04:10 08/19/18 08/20/18 08/21/18 05:59 05:59 05:59 Intake Total 2475.2 539 Output Total 1550 4300 400 Balance 925.2 -3761 -400 PT 18.3 SEC (12.0-15.0) H 08/08/18 21:40 INR 1.50 (0.83-1.16) H 08/08/18 21:40 - Time Spent With Patient Time Spent With Patient: 35 min of time spent with patient, over 1/2 involved with coordination of care or counseling. Case discussed with nursing. Physical Exam - Physical Exam General Appearance: alert, obese EENT: PERRL/EOMI Neck: non-tender Respiratory: rhonchi (Few), wheezing (Mild), No respiratory distress Cardiac/Chest: normal peripheral pulses, regular rate, rhythm Peripheral Pulses: 2+: carotid (R), carotid (L), femoral (R), femoral (L), dorsalis-pedis (R), dorsalis-pedis (L) Abdomen: normal bowel sounds, non-tender, soft Male Genitalia: deferred Rectal: deferred Skin: normal color, warm/dry Extremities: normal range of motion, non-tender, normal inspection, normal capillary refill Neuro/Psych: alert ICD10 Worksheet Patient Problems: Problems Problem Status Onset Acute renal failure Acute Aspiration pneumonia Acute Pancreatitis, acute Acute Septic shock Acute
[2018-08-20] MEDS ORDERED: ALBUTEROL 3 ML DEYVIAL IH PRN (08:44)
[2018-08-20] MEDS: INSULIN GLARGINE 100 UNITS/ML UNIT SC SCH (09:05)
[2018-08-20] MEDS: THIAMINE HCL 100 MG TAB TUBE SCH (09:20)
[2018-08-20] MEDS ORDERED: ACETAMINOPHEN 325 MG TAB PO PRN (16:30)
[2018-08-20] MEDS: FAMOTIDINE 20 MG TAB PO SCH (19:19)
--- NOTE | 2018-08-20 21:15 | HOSPPROG ---
Hospitalist Progress Note Assessment/Plan: Assessment: 53 yo M p/w acute pancreatitis c/b acute respiratory failure, acute diastolic CHF, ATN Plan: # acute severe pancreatitis - d/t etOH, resolved # ATN - initially hypovolemic, now non-oliguric, Cr improving # acute diastolic CHF exacerbation - acute, net positive 17kg LOS, CXR w/ interstitial infiltrates -cont lasix to 40mg IV bid (BP permitting) -net neg 3.7L o/n -monitoring Cr/K w/ significant diuresis # acute hypoxic and hypercapnic respiratory failure - likely 2/2 combination of CHF, CRUZ, shock -BiPAP tonight -d/w Dr. Fields, he reports critical episode last PM, will adjust to SDU status and monitor tonight # c. dif - on vanc PO; abd soft # hypovolemic shock - off pressors, suspect hypovolemia -with recurrent fever, monitoring WBC # acute metabolic acidosis - multifactorial, improved # diabetes, initial extreme hyperglycemia, A1c 12 - cont glargine and ISS # thrombocytopenia - improving # anemia - slow downward trend, but relatively stable diet. low K ppx. high risk, hep SC code. full dispo. ADD uncertain, remains unresolved, will require SNF. High level of medical complexity, high risk for worsening morbidity/mortality 2/ 2 issues outlined above. Subjective: denies pain, ongoing stool output Objective: Vital Signs Temp Pulse Resp BP Pulse Ox 37.1 C 96 18 113/52 L 92 08/20/18 19:17 08/20/18 19:17 08/20/18 19:17 08/20/18 19:17 08/20/18 19:17 Laboratory Results 08/20/18 04:10 08/20/18 04:10 08/19/18 08/20/18 08/21/18 05:59 05:59 05:59 Intake Total 2475.2 539 830 Output Total 1550 4300 2130 Balance 925.2 -3761 -1300 PT 18.3 SEC (12.0-15.0) H 08/08/18 21:40 INR 1.50 (0.83-1.16) H 08/08/18 21:40 - Physical Exam Constitutional: no apparent distress, not in pain, chronically ill appearing, uncomfortable Cardiovascular: systolic murmur (I/ apex/sternum), irregularly irregular, JVD , edema (1+ bilat LE) Respiratory: reduced air movement (bilat bases), expiratory wheeze, inspiratory crackles (bilat), bronchial breath sounds Gastrointestinal: normoactive bowel sounds, tenderness, distension (moderate), other (rectal tube in place w/ brown stool) Neurologic: AAOx3, sensation intact bilaterally, weakness Psychiatric: not anxious, flat affect, agitated, poor memory ICD10 Worksheet Patient Problems: Problems Problem Status Onset Pancreatitis, acute Acute Septic shock Acute Acute renal failure Acute Aspiration pneumonia Acute
[2018-08-21] MEDS: INSULIN LISPRO 100 UNIT/ML SC SCH ×6 (00:20→21:43)
[2018-08-21] MEDS ORDERED: D50W 25 GM/50 ML VIAL IVP PRN (01:00)
[2018-08-21] MEDS: HEPARIN 5,000 UNIT/0.5 ML INJ SC SCH ×3 (05:15→21:43)
[2018-08-21] MEDS: VANCOMYCIN 125 MG/2.5 ML UDL PO SCH ×4 (05:16→20:39)
[2018-08-21 05:56] LABS: PLATELET COUNT 155 10^3/uL (150-400)
[2018-08-21] MEDS: THIAMINE HCL 100 MG TAB PO SCH (09:10)
[2018-08-21] MEDS: FUROSEMIDE 40 MG/4 ML VIAL IVP SCH ×2 (09:10→15:58)
[2018-08-21] MEDS: INSULIN GLARGINE 100 UNITS/ML UNIT SC SCH (09:10)
--- NOTE | 2018-08-21 09:28 | PDINTPN ---
Tile Helper Progress Note Assessment/Plan: Assessment/Plan: * Severe metabolic acidosis-resolved * Hyperosmolar nonketotic state-resolved * Acute respiratory failure with hypercapnia and hypoxemia-resolved * Pancreatitis with lipase >20,000 on admission and significant discomfort per family at that time. Now with soft abdomen and substantial decline in lipase ( likely at least partially pseudo-elevated in setting of UTE). Continue with IVF and TF (shown to be superior in pancreatitis as opposed to TPN). No evidence of necrosis on abdo CT * UTE- presumed related to hypotension/ATN, pancreatitis, and perhaps element of DM related nephropathy. Continues to improve * Hypotension- Resolved as of 08/15. * Thrombocytopenia- platelets were 170 on admission, but he was severely dehydrated at the time. May have been related to shock on arrival- continue to rise * ETOH- no signs of withdrawal * C. Diff- started po vanco * Mental status-the awake and alert. * VT prophylaxis * Stress ulcer prophylaxis * Sedation-adequate * Disposition-okay for floor Subjective: Sitting up in chair. Resting comfortably. Good spirits. No current complaints. Objective: Vital Signs Temp Pulse Resp BP Pulse Ox 37.1 C 91 19 136/67 H 97 08/21/18 08:00 08/21/18 08:00 08/21/18 08:00 08/21/18 08:00 08/21/18 08:00 Laboratory Results 08/21/18 05:20 08/21/18 05:20 08/20/18 08/21/18 08/22/18 05:59 05:59 05:59 Intake Total 539 830 Output Total 4300 2780 Balance -3761 -1950 PT 18.3 SEC (12.0-15.0) H 08/08/18 21:40 INR 1.50 (0.83-1.16) H 08/08/18 21:40 - Time Spent With Patient Time Spent With Patient: 35 min of time spent with patient, over 1/2 involved with coordination of care or counseling. Case discussed with nursing Physical Exam - Physical Exam General Appearance: alert, no apparent distress EENT: PERRL/EOMI, normal ENT inspection Neck: non-tender Respiratory: chest non-tender, lungs clear, normal breath sounds Cardiac/Chest: normal peripheral pulses, regular rate, rhythm Abdomen: normal bowel sounds, non-tender, soft Male Genitalia: deferred Rectal: deferred Skin: warm/dry Lymphatic: no adenopathy Extremities: non-tender Neuro/Psych: alert ICD10 Worksheet Patient Problems: Problems Problem Status Onset Acute renal failure Acute Aspiration pneumonia Acute Pancreatitis, acute Acute Septic shock Acute
--- NOTE | 2018-08-21 18:39 | HOSPPROG ---
Hospitalist Progress Note Assessment/Plan: Assessment: 53 yo M p/w acute pancreatitis c/b acute respiratory failure, acute diastolic CHF, ATN Plan: # acute severe pancreatitis - d/t etOH, resolved # ATN - initially hypovolemic, now non-oliguric, Cr improving to 1.4 # acute diastolic CHF exacerbation - acute, net positive 17kg LOS, CXR w/ interstitial infiltrates -cont lasix to 40mg IV bid (BP permitting) -net neg 2L o/n -monitoring Cr/K w/ significant diuresis # acute encephalopathy - new problem, further w/u indicated. Evidenced by notably slowed cognition, intermittent unawareness, poor recall and memory -r/o hepatic enceph w/ NH4/LFTs -suspect metabolic in setting of ATN/uremia -start melatonin HS and remove any altering Rx, transfer to med surg to improve sleep # acute hypoxic and hypercapnic respiratory failure - likely 2/2 combination of CHF, CRUZ, shock -BiPAP HS scheduled given likely CRUZ -d/w Dr. Fields, we agree patient stable for med surg status after no apneic episodes o/n # c. dif - on vanc PO; abd soft # hypovolemic shock - off pressors # acute metabolic acidosis - multifactorial, improved # diabetes, initial extreme hyperglycemia, A1c 12% - reduce lantus dosing, cont ISS # thrombocytopenia - improving # anemia - slow downward trend, but relatively stable diet. low K ppx. high risk, hep SC code. full dispo. ADD uncertain, remains unresolved, will require SNF. Subjective: patient w/o complaints, no overnight respiratory events Objective: Vital Signs Temp Pulse Resp BP Pulse Ox 36.7 C 88 20 127/76 H 99 08/21/18 16:00 08/21/18 16:00 08/21/18 16:00 08/21/18 16:00 08/21/18 16:00 Laboratory Results 08/21/18 05:20 08/21/18 05:20 08/20/18 08/21/18 08/22/18 05:59 05:59 05:59 Intake Total 464 011 8970 Output Total 4300 2780 900 Balance -3761 -1950 300 PT 18.3 SEC (12.0-15.0) H 08/08/18 21:40 INR 1.50 (0.83-1.16) H 08/08/18 21:40 - Physical Exam Constitutional: no apparent distress, not in pain, chronically ill appearing, obese, No uncomfortable Eyes: icteric sclera Cardiovascular: regular rate and rhythym, no murmur, rub, or gallop, edema (1+ bilat LE) Respiratory: inspiratory crackles (bilat bases), No expiratory wheeze, No bronchial breath sounds, No respiratory distress Gastrointestinal: normoactive bowel sounds, soft, non-tender abdomen, distension (mild), other (rectal tube w/ brown stool), No guarding Neurologic: sensation intact bilaterally, weakness (4/5 motor bilat LE), other ( AAOx2 (person and place)) Psychiatric: not anxious, encephalopathic (concentration 0/7), flat affect, poor insight, poor memory, No agitated ICD10 Worksheet Patient Problems: Problems Problem Status Onset Pancreatitis, acute Acute Septic shock Acute Acute renal failure Acute Aspiration pneumonia Acute
[2018-08-21] MEDS: MELATONIN 3 MG TAB PO SCH (20:39)
[2018-08-21] MEDS: FAMOTIDINE 20 MG TAB PO SCH (20:39)
[2018-08-22 04:58] LABS: PLATELET COUNT 156 10^3/uL (150-400)
[2018-08-22] MEDS: VANCOMYCIN 125 MG/2.5 ML UDL PO SCH ×4 (06:16→22:10)
[2018-08-22] MEDS: HEPARIN 5,000 UNIT/0.5 ML INJ SC SCH ×3 (06:16→22:11)
[2018-08-22] MEDS: INSULIN LISPRO 100 UNIT/ML SC SCH ×3 (07:57→18:05)
[2018-08-22] MEDS ORDERED: PROTOCOL POTASSIUM 1 DOSE MISC PRN (08:03)
[2018-08-22] MEDS ORDERED: POTASSIUM CL 10 MEQ TAB PO ONE (08:04)
[2018-08-22] MEDS: INSULIN GLARGINE 100 UNITS/ML UNIT SC SCH (08:40)
[2018-08-22] MEDS: THIAMINE HCL 100 MG TAB PO SCH (08:40)
--- NOTE | 2018-08-22 16:52 | HOSPPROG ---
Hospitalist Progress Note Assessment/Plan: Assessment: 53 yo M p/w acute pancreatitis c/b acute respiratory failure, acute diastolic CHF, ATN, acute metabolic encephalopathy Plan: # acute metabolic encephalopathy and acute fall today - Evidenced by notably slowed cognition, intermittent unawareness, poor recall and memory, likely 2/2 critical illness and metabolic effects of UTE -started melatonin HS and remove any altering Rx, transfer to med surg to improve sleep -posterior head trauma after stood up w/o support and hit back of head, get HCT -place on roll belt for safety -suspect that he will have lingering cog effects of critical illness and require SNF, cog therapy to eval # acute severe pancreatitis - d/t etOH, resolved # ATN - initially hypovolemic, now non-oliguric, Cr increased to 1.5 today s/p aggressive diuresis -remove miranda # Acute hypokalemia - 2/2 post-ATN diuresis + lasix -replete, stay off protocol given ongoing UTE # acute diastolic CHF exacerbation - acute, net positive 11kg LOS, CXR w/ ongoing interstitial infiltrates -hold lasix today, as aggressive diuresis has resulted in bump in Cr/HCO3 -net neg 800mL o/n # acute hypoxic and hypercapnic respiratory failure - likely 2/2 combination of CHF, CRUZ, shock -BiPAP HS scheduled given likely CRUZ # c. dif - on vanc PO; abd soft -stool output slowed, remove rectal tube # hypovolemic shock - off pressors # acute metabolic acidosis - multifactorial, improved # diabetes, initial extreme hyperglycemia, A1c 12% - reduced lantus dosing, cont ISS # thrombocytopenia - resolved # anemia - slow downward trend, but relatively stable diet. regular ppx. high risk, hep SC code. full dispo. ADD uncertain, remains unresolved, d/w case mgmt, will require SNF. High-level medical complexity, high risk for worsening morbidity and/or mortality secondary to the issues as outlined above. Subjective: Patient denies any pain, experienced fall when he attempted to stand without assistance Objective: Vital Signs Temp Pulse Resp BP Pulse Ox 36.8 C 75 20 135/58 H 96 08/22/18 07:48 08/22/18 07:48 08/22/18 07:48 08/22/18 07:48 08/22/18 07:48 Laboratory Results 08/22/18 04:35 08/22/18 04:35 08/21/18 08/22/18 08/23/18 05:59 05:59 05:59 Intake Total 830 1200 Output Total 2780 2049 Balance -1950 -850 PT 18.3 SEC (12.0-15.0) H 08/08/18 21:40 INR 1.50 (0.83-1.16) H 08/08/18 21:40 - Physical Exam Constitutional: not in pain, chronically ill appearing, obese, No uncomfortable Cardiovascular: edema (1+ bilateral lower extremities), No systolic murmur, No irregularly irregular, No tachycardia Respiratory: inspiratory crackles (Bilaterally), No reduced air movement, No expiratory wheeze, No bronchial breath sounds, No respiratory distress Gastrointestinal: normoactive bowel sounds, soft, non-tender abdomen, distension (Moderate), No guarding Neurologic: sensation intact bilaterally, weakness (4/5 motor strength bilateral lower extremities), other (Alert awake oriented x2 to person and time , not place) Psychiatric: not anxious, encephalopathic (Slowed cognitive processing), flat affect, poor judgement, poor memory, No agitated ICD10 Worksheet Patient Problems: Problems Problem Status Onset Pancreatitis, acute Acute Septic shock Acute Acute renal failure Acute Aspiration pneumonia Acute
[2018-08-22] MEDS: MELATONIN 3 MG TAB PO SCH (22:10)
[2018-08-22] MEDS: FAMOTIDINE 20 MG TAB PO SCH (22:10)
[2018-08-23] MEDS: INSULIN LISPRO 100 UNIT/ML SC SCH ×6 (01:14→23:48)
[2018-08-23] MEDS: VANCOMYCIN 125 MG/2.5 ML UDL PO SCH ×4 (05:57→21:15)
[2018-08-23] MEDS: HEPARIN 5,000 UNIT/0.5 ML INJ SC SCH ×3 (05:58→21:24)
[2018-08-23 06:30] LABS: PLATELET COUNT 194 10^3/uL (150-400)
[2018-08-23] MEDS: THIAMINE HCL 100 MG TAB PO SCH (07:56)
[2018-08-23] MEDS: INSULIN GLARGINE 100 UNITS/ML UNIT SC SCH (09:43)
[2018-08-23] MEDS ORDERED: INSULIN GLARGINE 100 UNITS/ML UNIT SC SCH (12:46)
[2018-08-23] MEDS ORDERED: POTASSIUM CL 20 MEQ TAB PO ONE ×2 (12:46→16:15)
--- NOTE | 2018-08-23 12:52 | HOSPPROG ---
Hospitalist Progress Note Assessment/Plan: # acute severe pancreatitis - d/t etOH - resolved # acute renal failure - pre-renal + ATN - much improved, may be at baseline SCr # volume overload - weight still up about 10kg - lasix 40 iv bid, follow lytes and SCr closely # hypoK - replete and follow on lasix # acute respiratory failure - intubated in ED, extubated then reintubated; extubated 08/19 # c. dif - on vanc PO D#09/10 - ongoing diarrhea - safe to start questran today # shock - off pressors, suspect SIRS physiology as well as hypovolemia # severe metabolic acidosis - multifactorial, improved # diabetes, initial extreme hyperglycemia, A1c 12 - cont glargine # thrombocytopenia - resolved # anemia - hgb low, but stable # dvt ppx - heparin SC Subjective: not eating well; still having loose stools Objective: Vital Signs Temp Pulse Resp BP Pulse Ox 37.0 C 77 19 127/66 H 94 08/23/18 07:13 08/23/18 07:13 08/23/18 07:13 08/23/18 07:13 08/23/18 07:13 Laboratory Results 08/23/18 06:10 08/23/18 06:10 08/22/18 08/23/18 08/24/18 05:59 05:59 05:59 Intake Total 1200 1800 Output Total 2050 950 Balance -850 850 PT 18.3 SEC (12.0-15.0) H 08/08/18 21:40 INR 1.50 (0.83-1.16) H 08/08/18 21:[address] reviewed - Physical Exam Constitutional: no apparent distress, appears nourished Cardiovascular: no murmur, rub, or gallop, systolic murmur, No tachycardia, No bradycardia Respiratory: no respiratory distress, no rales or rhonchi, clear to auscultation Gastrointestinal: soft, non-tender abdomen, no palpable masses, No guarding, No rebound, No distension Neurologic: AAOx3 ICD10 Worksheet Patient Problems: Problems Problem Status Onset Pancreatitis, acute Acute Septic shock Acute Acute renal failure Acute Aspiration pneumonia Acute
--- NOTE | 2018-08-23 13:45 | ASMTCMCOM ---
CM Note CM Note Notes: 08/23/2018 Case Management Note Reviewed case with RN and MD. Pt is currently under application for Medicaid. Holding off on ULTC 100 as pt will have limited therapies at SNF under Medicaid. order in for evaluation of appropriateness for inpatient rehab. Faxed numerous referrals to home health agencies. Case Management d/c poc: to be determined. Case Management to follow. Date Signed: 08/23/2018 01:44 PM Electronically Signed By:Nhi Porras RN
[2018-08-23] MEDS: CHOLESTYRAMINE/SUCROSE 4 GM PKT PO SCH (15:53)
[2018-08-23] MEDS: FUROSEMIDE 40 MG/4 ML VIAL IVP SCH (15:53)
[2018-08-24] MEDS: CHOLESTYRAMINE/SUCROSE 4 GM PKT PO SCH ×4 (00:10→23:48)
[2018-08-24] MEDS: MELATONIN 3 MG TAB PO SCH ×2 (00:10→23:48)
[2018-08-24 05:21] LABS: PLATELET COUNT 164 10^3/uL (150-400)
[2018-08-24] MEDS: VANCOMYCIN 125 MG/2.5 ML UDL PO SCH ×4 (06:41→23:48)
[2018-08-24] MEDS: HEPARIN 5,000 UNIT/0.5 ML INJ SC SCH ×2 (06:41→14:54)
[2018-08-24] MEDS: INSULIN LISPRO 100 UNIT/ML SC SCH ×3 (09:34→17:49)
[2018-08-24] MEDS: THIAMINE HCL 100 MG TAB PO SCH (09:34)
[2018-08-24] MEDS: FUROSEMIDE 40 MG/4 ML VIAL IVP SCH ×2 (09:35→16:21)
--- NOTE | 2018-08-24 11:26 | HOSPPROG ---
Hospitalist Progress Note Assessment/Plan: # acute severe pancreatitis - d/t etOH - resolved # acute renal failure - pre-renal + ATN - much improved, may be at baseline SCr # volume overload - weight still up about 10kg - lasix 40 iv bid, follow lytes and SCr closely # hypoK - replete and follow on lasix # acute respiratory failure - intubated in ED, extubated then reintubated; extubated 08/19 # c. dif - on vanc PO D#10/10 - ongoing diarrhea - safe to start questran today # shock - off pressors, suspect SIRS physiology as well as hypovolemia # severe metabolic acidosis - multifactorial, improved # diabetes, initial extreme hyperglycemia, A1c 12 - cont glargine # thrombocytopenia - resolved # anemia - hgb low, but stable # dvt ppx - heparin SC # dispo - inpatient rehab evaluation placed; CM involved Subjective: no complaints today; diarrhea a little better Objective: Vital Signs Temp Pulse Resp BP Pulse Ox 36.7 C 82 15 135/76 H 99 08/24/18 08:14 08/24/18 08:14 08/24/18 08:14 08/24/18 08:14 08/24/18 08:14 Laboratory Results 08/24/18 04:50 08/24/18 04:50 08/23/18 08/24/18 08/25/18 05:59 05:59 05:59 Intake Total 1800 225 Output Total 950 800 725 Balance 850 -575 -725 PT 18.3 SEC (12.0-15.0) H 08/08/18 21:40 INR 1.50 (0.83-1.16) H 08/08/18 21:40 - Physical Exam Constitutional: no apparent distress, appears nourished Cardiovascular: regular rate and rhythym, no murmur, rub, or gallop Respiratory: no rales or rhonchi, clear to auscultation, No expiratory wheeze, No inspiratory crackles Gastrointestinal: soft, non-tender abdomen, No guarding, No rebound, No distension ICD10 Worksheet Patient Problems: Problems Problem Status Onset Pancreatitis, acute Acute Septic shock Acute Acute renal failure Acute Aspiration pneumonia Acute
--- NOTE | 2018-08-24 12:11 | ASMTCAGE ---
CAGE Do you feel you ought to Answers: No cut down on your drinking or drug use? Do people annoy you by Answers: No criticizing your drinking or drug use? Do you feel guilty about Answers: No your drinking or drug use? Do you drink or use drugs Answers: No first thing in the morning (Eye Speech/Language Therapist)? Additional Comments Denies drug use. Reports drinking 2-3 beers/day. Refused resources to decrease cosumption levels. Date Signed: 08/24/2018 12:10 PM Electronically Signed By:Nhi Porras RN
--- NOTE | 2018-08-24 12:15 | ASMTCMCOM ---
CM Note CM Note Notes: 08/24/2018 Case Management Note Friends were waiting to visit pt. Brief encounter with pt to complete CAGE. Discussed d/c options with pt. 2 Home Care agencies have agreed to pt if Medicaid is approved: [facility] and [facility]. Pt PCP is Dr. César Hernández. Left for Cheryl for inpatient rehab consult. Pt declined ULTC 100 and 30 day stay at SNF. Case Management d/c poc: to be determined. Case Management to follow. Date Signed: 08/24/2018 12:15 PM Electronically Signed By:Nhi Porras RN
[2018-08-24] MEDS ORDERED: POTASSIUM CL 20 MEQ TAB PO ONE (14:23)
[2018-08-24] MEDS: ENOXAPARIN 40 MG/0.4 ML SYR SC SCH (16:28)
[2018-08-25] MEDS: INSULIN LISPRO 100 UNIT/ML SC SCH ×5 (01:07→22:12)
[2018-08-25] MEDS: VANCOMYCIN 125 MG/2.5 ML UDL PO SCH ×4 (06:00→20:11)
[2018-08-25] MEDS: ENOXAPARIN 40 MG/0.4 ML SYR SC SCH (08:50)
[2018-08-25] MEDS: THIAMINE HCL 100 MG TAB PO SCH (08:50)
[2018-08-25] MEDS: FUROSEMIDE 40 MG/4 ML VIAL IVP SCH ×2 (08:51→15:59)
[2018-08-25] MEDS: CHOLESTYRAMINE/SUCROSE 4 GM PKT PO SCH ×3 (08:51→22:13)
[2018-08-25] MEDS: INSULIN GLARGINE 100 UNITS/ML UNIT SC SCH (08:56)
--- NOTE | 2018-08-25 14:21 | HOSPPROG ---
Hospitalist Progress Note Assessment/Plan: Assessment: 53 yo M p/w acute pancreatitis c/b acute respiratory failure, acute diastolic CHF, ATN, acute metabolic encephalopathy Plan: # acute metabolic encephalopathy - Evidenced by notably slowed cognition, intermittent unawareness, poor recall and memory, likely 2/2 critical illness and metabolic effects of UTE, resolving -cont melatonin HS -suspect that he will have lingering cog effects of critical illness and require either home care vs. IPR # acute severe pancreatitis - d/t etOH, resolved # ATN - initially hypovolemic, non-oliguric, Cr stable at 1.3 today w/ ongoing aggressive diuresis # Acute hypokalemia - 2/2 post-ATN diuresis + lasix -replete, stay off protocol # acute diastolic CHF exacerbation - acute, net positive 8kg LOS -cont lasix 40mg IV bid # acute hypoxic and hypercapnic respiratory failure - likely 2/2 combination of CHF, CRUZ, shock -BiPAP HS scheduled given likely CRUZ # c. dif - cont Vanco D#13/14 # hypovolemic shock - off pressors # acute metabolic acidosis - multifactorial, improved # diabetes, initial extreme hyperglycemia, A1c 12% - reduced lantus dosing to 35u, cont ISS # thrombocytopenia - resolved # anemia - slow downward trend to 7.3, but relatively stable, transfuse < 7 diet. regular ppx. high risk, hep SC code. full dispo. ADD uncertain, remains unresolved, d/w case mgmt, will require either HC vs. IPR, Medicaid sp pending High-level medical complexity, high risk for worsening morbidity and/or mortality secondary to the issues as outlined above. Subjective: patient reports ongoing walker needs, ongoing, intermittent loose BMs Objective: Vital Signs Temp Pulse Resp BP Pulse Ox 36.9 C 76 16 126/66 H 95 08/25/18 07:47 08/25/18 07:47 08/25/18 07:47 08/25/18 07:47 08/25/18 07:47 Laboratory Results 08/24/18 04:50 08/25/18 03:45 08/24/18 08/25/18 08/26/18 05:59 05:59 05:59 Intake Total 225 1150 Output Total 800 1476 400 Balance -575 326 -400 PT 18.3 SEC (12.0-15.0) H 08/08/18 21:40 INR 1.50 (0.83-1.16) H 08/08/18 21:40 - Physical Exam Constitutional: no apparent distress, not in pain, chronically ill appearing, obese, No uncomfortable Cardiovascular: no murmur, rub, or gallop, edema (1+ bilat LE), No irregularly irregular, No tachycardia Respiratory: inspiratory crackles (bilat bases), No reduced air movement, No expiratory wheeze, No bronchial breath sounds, No respiratory distress Gastrointestinal: normoactive bowel sounds, distension (moderate), No tenderness , No guarding Skin: other (PICC site w/o ecchymoses/erythema/induration/tenderness) Psychiatric: interacting appropriately, not anxious, not encephalopathic, thought process linear ICD10 Worksheet Patient Problems: Problems Problem Status Onset Pancreatitis, acute Acute Septic shock Acute Acute renal failure Acute Aspiration pneumonia Acute
--- NOTE | 2018-08-25 14:34 | ASMTCMCOM ---
CM Note CM Note Notes: 08/25/2018 Case Management Note Notified from [employer] that pt is approved for Medicaid. [facility] home health accepted pt. 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 Case Management d/c poc: Home shared with brother and [facility] home health RN PT OT Case Management to follow. Date Signed: 08/25/2018 02:33 PM Electronically Signed By:Nhi Porras RN
[2018-08-25] MEDS: MELATONIN 3 MG TAB PO SCH (20:11)
[2018-08-26] MEDS: VANCOMYCIN 125 MG/2.5 ML UDL PO SCH ×4 (05:09→19:39)
[2018-08-26] MEDS: INSULIN LISPRO 100 UNIT/ML SC SCH (07:03)
[2018-08-26] MEDS: FUROSEMIDE 40 MG/4 ML VIAL IVP SCH (09:08)
[2018-08-26] MEDS: ENOXAPARIN 40 MG/0.4 ML SYR SC SCH (09:09)
[2018-08-26] MEDS: INSULIN GLARGINE 100 UNITS/ML UNIT SC SCH (09:09)
[2018-08-26] MEDS: THIAMINE HCL 100 MG TAB PO SCH (09:09)
[2018-08-26] MEDS: CHOLESTYRAMINE/SUCROSE 4 GM PKT PO SCH (09:09)
[2018-08-26] MEDS ORDERED: INSULIN GLARGINE 100 UNITS/ML UNIT SC SCH (09:19)
[2018-08-26] MEDS: LIPASE 12,000/AMYLASE/PROTEASE (CREON) 1 CAP PO SCH ×3 (12:39→16:11)
[2018-08-26] MEDS ORDERED: FUROSEMIDE 40 MG TAB PO SCH (15:00)
--- NOTE | 2018-08-26 17:11 | HOSPPROG ---
Hospitalist Progress Note Assessment/Plan: Assessment: 53 yo M p/w acute pancreatitis c/b acute respiratory failure, acute diastolic CHF, ATN, acute metabolic encephalopathy Plan: # acute metabolic encephalopathy - Evidenced by notably slowed cognition, intermittent unawareness, poor recall and memory, likely 2/2 critical illness and metabolic effects of UTE, resolving -cont melatonin HS -suspect that he will have lingering cog effects of critical illness and require either home care vs. IPR # acute severe pancreatitis - d/t etOH, resolved # ATN - initially hypovolemic, non-oliguric, Cr stable at 1.4 today and rising, adjusted to PO lasix, gauge effect # Acute hypokalemia - 2/2 post-ATN diuresis + lasix -replete, stay off protocol # acute diastolic CHF exacerbation - acute, net positive 8kg LOS -adjust to PO lasix, gauge whether he can stay net even/negative # acute hypoxic and hypercapnic respiratory failure - likely 2/2 combination of CHF, CRUZ, shock -BiPAP HS scheduled given likely CRUZ # c. dif - cont Vanco D# # hypovolemic shock - off pressors # acute metabolic acidosis - multifactorial, improved # diabetes, initial extreme hyperglycemia, A1c 12% - reduced lantus dosing to 35u, cont ISS # thrombocytopenia - resolved # anemia - 8.6, but relatively stable, transfuse < 7 # diarrhea - ongoing, suspect this may be pancreatic insufficiency rather than ongoing CDiff - start creon tid, gauge effect - if ongoing despite creon, will get ID consult tomorrow to help determine duration of vanco diet. regular ppx. high risk, hep SC code. full dispo. ADD uncertain, remains unresolved, d/w case mgmt, will require either HC vs. IPR, Medicaid sp approved High-level medical complexity, high risk for worsening morbidity and/or mortality secondary to the issues as outlined above. Subjective: patient reports bowel urgency x 2 Objective: Vital Signs Temp Pulse Resp BP Pulse Ox 36.5 C 77 16 118/62 97 08/26/18 15:07 08/26/18 15:07 08/26/18 15:07 08/26/18 15:07 08/26/18 15:07 Laboratory Results 08/26/18 05:05 08/26/18 05:05 08/25/18 08/26/18 08/27/18 05:59 05:59 05:59 Intake Total 1150 1467 236 Output Total 8697 550 Balance -326 917 236 PT 18.3 SEC (12.0-15.0) H 08/08/18 21:40 INR 1.50 (0.83-1.16) H 08/08/18 21:40 - Physical Exam Constitutional: no apparent distress, not in pain, chronically ill appearing, No uncomfortable Cardiovascular: regular rate and rhythym, no murmur, rub, or gallop, edema (1+ bilat LE), No irregularly irregular Respiratory: inspiratory crackles (bilat bases), No reduced air movement, No expiratory wheeze, No bronchial breath sounds, No respiratory distress Gastrointestinal: normoactive bowel sounds, distension (mild), No tenderness, No guarding Neurologic: AAOx3, sensation intact bilaterally, No weakness, No asterixes Psychiatric: interacting appropriately, not anxious, not encephalopathic, thought process linear ICD10 Worksheet Patient Problems: Problems Problem Status Onset Pancreatitis, acute Acute Septic shock Acute Acute renal failure Acute Aspiration pneumonia Acute
[2018-08-26] MEDS: MELATONIN 3 MG TAB PO SCH (19:39)
[2018-08-27] MEDS: VANCOMYCIN 125 MG/2.5 ML UDL PO SCH ×2 (06:02→12:31)
[2018-08-27] MEDS: THIAMINE HCL 100 MG TAB PO SCH (09:00)
[2018-08-27] MEDS: FUROSEMIDE 40 MG TAB PO SCH ×2 (09:00→14:27)
[2018-08-27] MEDS ORDERED: INSULIN GLARGINE 100 UNITS/ML UNIT SC SCH ×3 (09:00→10:15)
[2018-08-27] MEDS: LIPASE 12,000/AMYLASE/PROTEASE (CREON) 1 CAP PO SCH ×2 (09:00→12:30)
[2018-08-27] MEDS: ENOXAPARIN 40 MG/0.4 ML SYR SC SCH (09:01)
--- NOTE | 2018-08-27 13:07 | PDIAF ---
- Diagnosis Diagnosis: UTE, pancreatitis, CDiff Code Status: Full Code - Medication Management Discharge Medications: Medications to Continue on Transfer Insulin Glargine [Lantus Syringe] 30 units SC DAILY unit 08/12/18 [Last Taken Unknown] Acetaminophen [Tylenol 325mg (*)] 650 mg PO Q4HRS PRN tab 08/27/18 [Last Taken Unknown] Furosemide [Lasix 40 MG (*)] 80 mg PO BID@0900,1500 tab 08/27/18 [Last Taken Unknown] Lipase 12,000/Amylase/Protease [Creon 12 (*)] 1 cap PO TIDMEAL cap 08/27/18 [ Last Taken Unknown] Melatonin [Melatonin 3 MG (*)] 3 mg PO HS tab 08/27/18 [Last Taken Unknown] Thiamine HCl [Vitamin B-1] 200 mg PO DAILY tab 08/27/18 [Last Taken Unknown] Discharge Medications: Refer to the Discharge Home Medication list for PRN reason. PICC Care - Routine: N/A - Orders Services needed: Registered Nurse, Certified Java Flex Developer, Physical Therapy, Occupational Therapy, Speech Language Pathologist (Cog therapy) Isolation Type: CDIFF Isolation Oxygen: NA Diet Texture: Regular Texture Diet, [place] Thick Liquids, Meds Whole in Puree Weigh Patient: weekly [place]: Not applicable - Labs/Radiology BMP Date: 09/01/18 HCT/HGB Date: 09/01/18 Call or Fax Lab and Imaging Results to: Dr. Lema - Follow Up Care Current Providers and Referrals: Patient,NotPresent [Unknown] - As per Instructions César Hernández MD [Primary Care Provider] - Toy Lema DO [Doctor of Osteopathy] - 3 days of d/c SNF/Rehab
--- NOTE | 2018-08-27 13:28 | PDDCSUM ---
Discharge Summary Discharge Summary: DISCHARGE SUMMARY FOLLOW-UP ITEMS: Repeat creatinine BUN lytes and hemoglobin level on September 01 DATE OF ADMISSION: 08/07/2018 DATE OF DISCHARGE: 08/27/2018 DISCHARGE DIAGNOSES: 1. Acute severe pancreatitis due to alcoholism 2. Acute tubular necrosis 3. Acute metabolic encephalopathy 4. Acute diastolic congestive heart failure exacerbation 5. Acute hypoxic and hypercapnic respiratory failure 6. C difficile diarrhea 7. Hypovolemic shock 8. Acute metabolic acidosis 9. Hyperglycemia with uncontrolled diabetes type 2 10. Acute hypokalemia 11. Acute thrombocytopenia 12. Acute anemia CONSULTATIONS: Nephrology, Pulmonary Critical Care PROCEDURES / IMAGING: PICC line placement Head CT demonstrating no intracranial hemorrhage Extremity ultrasound demonstrating no evidence of DVT Abdominal ultrasound demonstrating no biliary obstruction, gallbladder wall thickening without cholecystitis CHIEF COMPLAINT: Acute encephalopathy, unresponsive, obtunded SUBJECTIVE: Patient's family at time discharge, he reports that he is willing to engage with physical and occupational therapy PHYSICAL EXAM ON DISCHARGE: Systolic blood pressure is 120-140, heart rate 70, afebrile, satting well on room air, net even overnight, positive 6.5 kg length of stay, alert awake oriented x3, chronically ill-appearing, abdomen is soft nontender nondistended, bowel sounds present, lungs are clear to auscultation bilaterally, heart rhythm is regular, 2+ bilateral lower extremity edema LABS ON DISCHARGE: Hemoglobin 8.2, potassium 4.3, creatinine 1.3, BUN 20, fasting blood glucose 100 , hemoglobin A1c 12% HOSPITAL COURSE BY PROBLEM: [facility] brother found him unresponsive, obtunded at home, with approximately 1 day of down time. In the emergency department he was found to be in hypovolemic shock as well as experiencing acute kidney injury, resulting in acute tubular necrosis. The patient also had an osmolar gap as well as acute metabolic acidosis, and he received fomepizole and pressor medications. He was also notably in acute hypoxic and hypercapnic respiratory failure most likely secondary to his lactic acidosis and encephalopathy exacerbating underlying sleep apnea from his elevated body habitus. He required high-flow OxyMask/BiPAP and did receive empiric IV antibiotics. He did develop subsequent C diff and receive 14 days of oral vancomycin therapy. His bowel urgency and loose bowels at time of discharge are most likely secondary to pancreatic insufficiency and the patient has been initiated on Creon which can be up titrated. His hypothesis was that his initial precipitating event was severe acute pancreatitis with multi end organ failure but no necrotizing features on abdominal CT. Right upper quadrant ultrasound did not demonstrate visible gallstones as a contributing factor, and was hypothesized that his alcohol abuse was what prompted the pancreatitis. The patient was seen by Nephrology but no hemodialysis was required, as the patient received significant volume resuscitation and his renal function began to improve. That being said, the patient developed acute diastolic congestive heart failure from his substantial volume input, and once his renal failure did improve he required significant IV diuresis. He did respond well to 40 mg IV twice daily, and this was adjusted to orals prior to discharge. He was unable to maintain a net negative status with 40 mg orally twice daily, and he was subsequently increased to 80 mg orally twice daily prior to discharge. I have discussed the patient's discharge renal function with consulting concrete pump operator Dr. Toy Lema, and she will ensure the patient receives outpatient follow-up for likely development of chronic kidney disease with discharge creatinine ranged between 1.3-1.5. He will require ongoing electrolyte monitoring and management as well as potential Lasix dose adjustments. His home dosage of triamterene hydrochlorothiazide was held throughout the hospitalization and should not be restarted at time of discharge. He also has notable anemia most likely secondary to marrow suppression and liver repeat hemoglobin level repeated on September 01. His diabetes is uncontrolled and his glucose levels fluctuated throughout his hospitalization, stabilizing with Lantus dosing of 35 units daily. Because the patient has an element of obesity related obstructive sleep apnea, the patient received benefit from BiPAP scheduled at night and he should utilize either nocturnal BiPAP or CPAP while at rehab. We counseled the patient regarding alcohol cessation and he has no symptoms of pancreatitis time of discharge. His mental status slowly improved during his hospitalization, and, at time of discharge, he is mentating at baseline, participating w/ therapies, and amenable to inpatient rehab. DISCHARGE MEDICATIONS: Please see official discharge medication reconciliation sheet in chart , discontinue triamterene hydrochlorothiazide, initiate Lasix 80 mg twice daily, initiate Creon 78818 units 3 times daily, melatonin at bedtime, thiamine 200 mg daily, Lantus 30 units daily. DISCHARGE INSTRUCTIONS: Please have serum chemistry repeated during inpatient rehab stay to monitor potassium and creatinine, arrange for outpatient follow-up through Nephrology office at time of discharge with ongoing outpatient lab monitoring. TIME SPENT: Greater than 30 minutes were spent on direct patient care, as well as discharge planning and preparation.
--- NOTE | 2018-08-27 14:25 | ASMTDCNOTE ---
Case Management Discharge Discharge Order Complete? Answers: Yes Patient to Obtain Answers: Other Notes: [facility] Inpatient Rehab Medications Transportation Arranged Answers: Family/Friends EMTALA Complete Answers: No Case Management Transport Answers: No Form Complete Faxed Final Orders Answers: Yes Agency/Facility Transfer Answers: Yes Report Printed & Faxed to Receiving Agency Family Notified Answers: Yes Discharge Comments Notes: Pts case discussed w/ Dr. Levine and YASEMIN Gonzalez regarding d/c POC. CM met w/ pt and sister for dispo planning. Pt is agreeable to a minimum of 5 days at inpatient rehab. CM spoke to Cheryl Modi at inpatient rehab and she is able to accept pt today. CM provided YASEMIN Gonzalez w/ phone number to give report. Pts sister plans on bringing pt. CM provided sister w/ directions from [employer]. BRAND DEVELOPMENT MANAGER will wheelchair pt down to sister's car. CM informed sister that once she arrives at [facility] inpatient rehab to call up to the nurses station for staff to come down to bring pt up in a wheelchair. CM available for changes. Plan: [facility] Inpatient Rehab Date Signed: 08/27/2018 02:24 PM Electronically Signed By:MADELIN Young
--- NOTE | 2018-08-27 14:27 | ASDISCHSUM ---
Discharge Information Plan Status:Inpatient Rehab Medically Cleared to Leave:08/27/2018 Discharge Date:08/27/2018 CM D/C Disposition: ADT D/C Disposition: Projected Discharge Date:08/27/2018 11:00 AM Transportation at D/C: Discharge Delay Reason: Follow-Up Date:08/27/2018 11:00 AM Discharge Slot: Final Diagnosis:AMS, Hyperglycemia Placement Information Referral Type:*Home Health Care Services Referral ID:[id number] Provider Name: Address 1: Phone Number: Address 2: Fax Number: City: Selection Factors: State: Referral Type:[facility] Hospital Referral ID:[id number] Provider Name:[facility] Address 1:[address] [place] [address] Phone Number: Address 2: Fax Number: [facility]:[place] Selection Factors: State:[place] Patient Contact Information Contact Name:HUE Relationship:[facility] Address:[address] City:[facility] Phone: State/Zip Code:[place] [address] Email: Financial Information Financial Class:Medicaid Primary Plan Desc[place] Primary Plan Number:[id number] Secondary Plan Desc: Secondary Plan Number: Assessment Information LACE LACE Length of stay for Answers: 14 days or more current admission Acuity / Level of Answers: Yes Care: Did the patient have an inpatient admission? Comorbidities - select Answers: Other Notes: altered mental status all that apply # of Emergency department Answers: 1-2 visits in the last 6 months Social determinants Answers: History of substance abuse (ETOH, street drugs, prescription drugs, etc.) Score: 15 Date Signed: 08/27/2018 02:26 PM Electronically Signed By:MADELIN Young [facility] Initial CM Assessment Living Arrangements What is your living Answers: With Other Relative(s) arrangement? Who do you live with? Type Of Residence What kind of residence do Answers: House you live in? Type of Residence Facility Name Notes: Patient lives with his brother currently. Discharge Plan Comments Coordination Status Comments Notes: Patient is a 53yo single male who lives with his brother currently and is unemployed. Patient is a heavy etoh user and presents obtunded and found to have severe acute pancreatitis complicated by distributive shock, respiratory failure and severe acidosis including DKA. OPTOMETRIC AIDE ordered. D/C plan TBD. CM will follow. Date Signed: 08/08/2018 09:35 AM Electronically Signed By:Jamilah Arango LCSW [facility] CM Progress Note CM Note CM Note Notes: CM met with pt's siblings, Maria G Victor and Juan Luis Medrano in order to create a proxy. Maria G Victor will be the pt's proxy. Maria G's phone number is [phone]. Date Signed: 08/09/2018 01:33 PM Electronically Signed By:Leanna Miller [facility] CM Progress Note CM Note CM Note Notes: Patient in severe met acidosis, respiratory failure, Pancreatitis, UTE, Hypotension, ETOH. Met with patient's sister, Maria GMartha Proxy in "Family Meeting" See "Notes" for Family Meeting. Too early to determine discharge needs. Date Signed: 08/11/2018 01:42 PM Electronically Signed By:Vanita Parson LCSW [facility] CM Progress Note CM Note CM Note Notes: Working towards extubation. Patient has new diagnosis of diabetes. CDiff being treated with po vanco. Patient remains on pressors. CM will follow. Date Signed: 08/15/2018 11:03 AM Electronically Signed By:Jamilah Arango LCSW [facility] CM Progress Note CM Note CM Note Notes: Patient continues on the vent. Was bronced today. He has been calm, and follows commands. RT doing C-pap trials in hopes to extubate. Sister, Maria G has been at bedside. Date Signed: 08/18/2018 03:03 PM Electronically Signed By:Vanita Parson LCSW [facility] CM Progress Note CM Note CM Note Notes: Patient had financial concerns. His income is too high for Medicaid. Financial Counselor met with him and he could have CIC[employer] as a secondary ins. Date Signed: 08/19/2018 04:15 PM Electronically Signed By:Vanita Parson LCSW [facility] CM Progress Note CM Note CM Note Notes: Please disregard CM Note 08/19/2016-written on wrong patient. Date Signed: 08/19/2018 05:05 PM Electronically Signed By:Vanita Parson LCSW [facility] CM Progress Note CM Note CM Note Notes: Medicaid Specialist visited with patient's sister and determined that he is eligible for Medicaid, she started that application. Patient has been extubated. Date Signed: 08/19/2018 05:08 PM Electronically Signed By:Vanita Parson LCSW [facility] CM Progress Note CM Note CM Note Notes: 08/23/2018 Case Management Note Reviewed case with RN and MD. Pt is currently under application for Medicaid. Holding off on ULTC 100 as pt will have limited therapies at SNF under Medicaid. MD order in for evaluation of appropriateness for inpatient rehab. Faxed numerous referrals to home health agencies. Case Management d/c poc: to be determined. Case Management to follow. Date Signed: 08/23/2018 01:44 PM Electronically Signed By:Nhi Porras RN CAGE Questionnaire CAGE Do you feel you ought to Answers: No cut down on your drinking or drug use? Do people annoy you by Answers: No criticizing your drinking or drug use? Do you feel guilty about Answers: No your drinking or drug use? 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 Additional Comments Denies drug use. Reports drinking 2-3 beers/day. Refused resources to decrease cosumption levels. Date Signed: 08/24/2018 12:10 PM Electronically Signed By:Nhi Porras RN [facility] CM Progress Note CM Note CM Note Notes: 08/24/2018 Case Management Note Friends were waiting to visit pt. Brief encounter with pt to complete CAGE. Discussed d/c options with pt. 2 Home Care agencies have agreed to pt if Medicaid is approved: [facility] and [facility]. Pt PCP is Dr. César Hernández. Left for Cheryl for inpatient rehab consult. Pt declined ULTC 100 and 30 day stay at SNF. Case Management d/c poc: to be determined. Case Management to follow. Date Signed: 08/24/2018 12:15 PM Electronically Signed By:Nhi Porras RN [facility] CM Progress Note CM Note CM Note Notes: 08/25/2018 Case Management Note [facility] for [facility]. [facility] home health accepted pt. Discussed with inpatient rehab slater apprentice, declined pt. Case Management d/c poc: Home shared with brother and [facility] home health RN PT OT Case Management to follow. Date Signed: 08/25/2018 02:33 PM Electronically Signed By:Nhi Porras RN Case Management Discharge Plan Note Case Management Discharge Discharge Order Complete? Answers: Yes Patient to Obtain Answers: Other Notes: [facility] Inpatient Rehab Medications Transportation Arranged Answers: Family/Friends EMTALA Complete Answers: No Case Management Transport Answers: No Form Complete Faxed Final Orders Answers: Yes Agency/Facility Transfer Answers: Yes Report Printed & Faxed to Receiving Agency Family Notified Answers: Yes Discharge Comments Notes: Pts case discussed w/ Dr. Levine and YASEMIN Gonzalez regarding d/c POC. CM met w/ pt and sister for dispo planning. Pt is agreeable to a minimum of 5 days at inpatient rehab. CM spoke to Cheryl Modi at inpatient rehab and she is able to accept pt today. CM provided YASEMIN Gonzalez w/ phone number to give report. Pts sister plans on bringing pt. CM provided sister w/ directions from [employer]. QUARTZ MOUNTER will wheelchair pt down to sister's car. CM informed sister that once she arrives at [facility] inpatient rehab to call up to the nurses station for staff to come down to bring pt up in a wheelchair. CM available for changes. Plan: [facility] Inpatient Rehab Date Signed: 08/27/2018 02:24 PM Electronically Signed By:MADELIN Young Intervention Information
[2018-08-27 15:03] VITALS: BP 117/65
== END 2018-08-27 15:12 | DRG 282 ==
LOC: F2N 12:27 → F2W 08-22 19:40
PROVIDERS: ADMIT Internal Medicine; ATTEND Internal Medicine
PROC: 5A1955Z Respiratory Ventilation, Greater than 96 Consecutive Hours (ICD-10-PCS; principal; 2018-08-08)
PROC: 0BH17EZ Insertion of Endotracheal Airway into Trachea, Via Natural or Artificial Opening (ICD-10-PCS; principal; 2018-08-08)
PROC: 0BH17EZ Insertion of Endotracheal Airway into Trachea, Via Natural or Artificial Opening (ICD-10-PCS; 2018-08-13)
PROC: 0B968ZZ Drainage of Right Lower Lobe Bronchus, Via Natural or Artificial Opening Endoscopic (ICD-10-PCS; 2018-08-19)
PROC: 0B9B8ZZ Drainage of Left Lower Lobe Bronchus, Via Natural or Artificial Opening Endoscopic (ICD-10-PCS; 2018-08-19)
PROC: 0B948ZZ Drainage of Right Upper Lobe Bronchus, Via Natural or Artificial Opening Endoscopic (ICD-10-PCS; 2018-08-19)
PROC: 0B998ZZ Drainage of Lingula Bronchus, Via Natural or Artificial Opening Endoscopic (ICD-10-PCS; 2018-08-19)
PROC: 0B958ZZ Drainage of Right Middle Lobe Bronchus, Via Natural or Artificial Opening Endoscopic (ICD-10-PCS; 2018-08-19)
PROC: 02HV33Z Insertion of Infusion Device into Superior Vena Cava, Percutaneous Approach (ICD-10-PCS; 2018-08-19)
DX: K85.20 Alcohol induced acute pancreatitis without necrosis or infection (principal); N17.0 Acute kidney failure with tubular necrosis; R57.1 Hypovolemic shock; J96.02 Acute respiratory failure with hypercapnia; J96.01 Acute respiratory failure with hypoxia; G93.41 Metabolic encephalopathy; I50.31 Acute diastolic (congestive) heart failure; A04.72 Enterocolitis due to Clostridium difficile, not specified as recurrent; F10.20 Alcohol dependence, uncomplicated; E87.2 Acidosis; E11.65 Type 2 diabetes mellitus with hyperglycemia; E87.6 Hypokalemia; D69.6 Thrombocytopenia, unspecified; D64.9 Anemia, unspecified; G47.30 Sleep apnea, unspecified; E66.9 Obesity, unspecified
CPT/HCPCS: 80307; 82435-PO; 82565-PO; 82693-90; 82947-PO; 82947-QW; 84132-PO; 84295-PO; 84484-PO; 84520-PO; 84600-90; 84681-90; 85014-PO; 92507-GN; 92523-GN; 92526-GN; 92610-GN; 96365; 97116-GP; 97162-GP; 97166-GO; 97530-GO; 97530-GP; 97535-GO; C1751; G0480; J0330; J1451; J1644; J1650; J1815; J1940; J2250; J2543; J2704; J3010; J3411; J3480; J7608; J7613; P9041; P9047

== ENCOUNTER 2018-08-27 15:38 | Inpatient (IN) | payer MEDICAID ==
[2018-08-27] MEDS ORDERED: D50W 25 GM/50 ML SYR IVP PRN (16:19)
[2018-08-27] MEDS ORDERED: ACETAMINOPHEN 325 MG TAB PO PRN (16:30)
[2018-08-27] MEDS: INSULIN LISPRO 100 UNIT/ML SC SCH (17:10)
--- NOTE | 2018-08-27 18:08 | GHP ---
POST ADMISSION PHYSICIAN EVALUATION AND REHABILITATION TREATMENT PLAN. DATE OF ADMISSION: 08/27/2018 DATE OF EVALUATION: 08/27/2018. TIME OF EVALUATION: 1645. REFERRING FACILITY: [facility]. Referring physician is Dr. Iverson. IMPAIRMENT GROUP: 2.1. DATE OF ONSET: 08/07/2018. CONSULTING PHYSICIANS: Nephrology, Dr. Blackmon. Pulmonary/Critical Care, Dr. Mcpherson. REHABILITATION DIAGNOSIS: Debility status post prolonged hospitalization for complex medical illness. ETIOLOGIC DIAGNOSIS: Nontraumatic brain dysfunction. HISTORY OF PRESENT ILLNESS: This patient was admitted to [facility] on 08/07/2018, for unresponsiveness. He was evaluated in the emergency department and found to have acute pancreatitis, metabolic acidosis, septic shock, respiratory failure, and renal failure. He had a long hospital course with complications including fluid overload and acute diastolic congestive heart failure, acute tubular necrosis, hypokalemia, hypoxia and respiratory failure requiring intubation and subsequently BiPAP, Clostridium difficile colitis, diabetes mellitus treated with insulin and anemia. He eventually was medically stabilized, participating in therapies and ready for rehabilitation. RECENT STUDIES AND LABS: During his hospitalization, on the day of discharge, basic metabolic profile showed overall normal renal function and electrolytes. Creatinine was 1.3 with a slightly low GFR of 57. Fasting blood sugar was 101. There was slightly high phosphorus at 5.4 and normal calcium. Albumin was 3.3. When he was initially admitted, his creatinine was 5.3 with a GFR of 13, glucose was 1318. Hemoglobin A1c was markedly elevated at 12. He was hyperosmolar with a serum osmolality of 426. Elevated bilirubin at 2.5, which was primarily conjugated bilirubin of 1.9. Otherwise, liver function tests showed mild elevations of AST and alkaline phosphatase. Lipase was greater than 20,000. Beta hydroxybutyrate was 10.4 and procalcitonin was 1.16. Lipase eventually improved to slightly elevated at 663 on 08/11/2018. CBC showed anemia with a hemoglobin jewell of 7.5 on August 19, subsequently improved to 8.2 and possibly he had a blood transfusion. Subsequent jewell on 08/16/2018, was 7.3. Apparently, he had another blood transfusion because on the day of hospital discharge, 08/27/2018, hemoglobin had improved to 8.2. White blood cell count was elevated as high as 16.37 on the date of admission. He had a coagulopathy with an INR as high as 1.68. There was an elevated D-dimer at 6.11. Multiple blood gases were done while he was intubated. Urinalysis was positive for ketones, blood, and red blood cells, but not consistent with infection. He had positive hemoccults while he was critically ill. Toxicology screen in the serum was negative for acetaminophen or ethyl alcohol and the urine was negative for any substances of abuse. C difficile toxin by PCR was positive. Blood cultures were all negative. Imaging ruled out obstructive pancreatitis or gallbladder disease. Abdominal CT showed subtle mesenteric edema, possibly consistent with mild pancreatitis with no direct evidence in the pancreas itself and a fluid-filled distal esophagus raising the suspicion of aspiration pneumonia. Head CTs showed age inappropriate atrophy. Precautions: He is a fall risk and he has aspiration precautions and he has isolation precautions for Clostridium difficile. Active comorbidities: He has the tier 2 comorbidities of dysphagia and C difficile colitis. He has a tier 3 comorbidity of septicemia which has resolved , and morbid obesity as he also has hypertension and diabetes. PAST MEDICAL HISTORY: 1. Hypertension. 2. Right hand 3rd finger tendon sheath abnormality which apparently was treated per workman's comp. I am not sure if it was a surgical treatment. PRE-HOSPITAL MEDICATIONS: Only hydrochlorothiazide. ADMISSION MEDICATIONS: 1. Acetaminophen 650 mg p.o. q.4 hours p.r.n. 2. Furosemide 80 mg p.o. twice daily at 0900 and 1500. 3. Insulin glargine 30 units subcutaneous daily. 4. Lipase/amylase/protease 1 cap p.o. three times daily with meals. 5. Melatonin 3 mg p.o. at bedtime. 6. Thiamine 200 mg p.o. daily. ALLERGIES: Sulfa antibiotics. SOCIAL HISTORY: He lives with his brother. 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 He is a nonsmoker. He reports drinking 1 to 1-1/2 beers a day, but per review of medical history, his brother reported that he drinks about 6 beers per day. FAMILY HISTORY: There is diabetes type 1 on his father's side. REVIEW OF SYSTEMS: Reports that his sleep has been interrupted by lights and sounds in the hospital, but otherwise he feels he is sleeping well. He does snore, but he reports that a sleep apnea test in the past showed more that he had hypoventilation rather than apneas. He is not in pain. He has an occasional cough which is nonproductive. He denies dyspnea. His appetite has been somewhat reduced. His diarrhea, which was profuse has slowed down considerably, though he is still having soft stools. He denies dysuria or urinary frequency. He denies joint pain or joint swelling. Otherwise, a 10- point review of systems is negative. PHYSICAL EXAM: VITAL SIGNS: Blood pressure is 122/73, heart rate is 75, respiratory rate is 14, oxygen saturation 97% on room air. Temperature is 36.8 degrees centigrade. His weight is 102.6 kg for a body mass index of 34.4. GENERAL: This is a well-nourished, well-developed, obese man, dressed in street clothes, sitting up on the bed, cooperative and in no acute distress. HEENT: Extraocular movements are intact. Pupils are equal, round, reactive to light. Mucous members are moist. Dentition is in good condition. He has a moderately crowded airway, Mallampati class 3. NECK: Supple. HEART: There is a regular rate and rhythm with no murmurs, rubs, or gallops. There is JVD approximately half-way from clavicle to jaw. There is 2+ edema bilaterally, pretibial in the lower extremities. LUNGS: Clear to auscultation bilaterally. ABDOMEN: Soft, nontender, nondistended with normoactive bowel sounds and no hepatosplenomegaly. EXTREMITIES: There is no cyanosis or clubbing. He has 2+ edema bilaterally pretibial. Radial and dorsalis pedis pulses are 2+ bilaterally. NEUROLOGIC: He is alert and oriented x3. Cranial nerves 2-12 are grossly intact. There is no focal weakness. Sensation is intact to light touch. He has normal speech. CURRENT LEVEL OF FUNCTION per the preadmission screen: he was on a regular diet with nectar thick liquids, which had been advanced to thin liquids on the day of discharge. He was taking medications in puree and prior to his speech therapy evaluation on the day of discharge, he had mild to moderate dysphagia. Grooming required standby assist and voice cues. Dressing was done seated with standby assist for donning and doffing his sock on the right foot. Toileting required standby assist and voice cues for clothing management. He was continent of bowel and bladder. Bed mobility required standby assist with voice cues. Transfers were done with contact guard to standby assist with voice cues for safety regarding use of a front-wheeled walker and hand placement. Balance standing required standby assist static and contact guard for dynamic activities. Endurance was good. He was able to ambulate 400 feet with standby assist to contact guard assist with use of a front-wheeled walker. When he turned his head he had decreased base of support and he had path weaving. He was noted to have moderate to severe communication and cognitive deficits. On today's exam, he appears to have improved cognition. Otherwise, there are no significant changes from the preadmission screen. IMPRESSION: This is a 53-year-old man who clearly had preexisting diabetes mellitus type 2 based on his elevated hemoglobin A1c and had excessive alcohol use, who was found obtunded by his brother, brought to the emergency department and found to be critically ill with severe pancreatitis, septic shock, metabolic acidosis, acute hypoxemic respiratory failure and acute renal failure. He had treatment in the hospital including IV antibiotics, IV hydration, blood transfusions, intubation, extubation, and use of BiPAP and eventual medical stabilization to the point at which he was able to participate in therapies and move on to inpatient rehabilitation. His goal is to complete a rehabilitation stay and discharge home with his brother. For a safe discharge he will need to achieve independence with eating on a regular diet, and with bed mobility and with grooming. He will need to achieve modified independence with a device for transfers and ambulation on level and unlevel surfaces for community distances. He will need to achieve modified independence for bathing and dressing. He will need to have insight into his deficits and he will need to be able to use compensatory strategies. It is likely that he will continue to require assistance for shopping, complex meal preparation and household management. He will have therapy with physical therapy, occupational therapy, and speech and language pathology on 5-7 days of the week for 60 minutes for each discipline. His expected duration of stay is 5-7 days. It is anticipated that upon discharge he will continue to benefit from outpatient therapy including OT, APPLIANCE REPAIRER, and PT. PLAN: 1. Debility status post prolonged hospitalization for critical illness. PT and OT to optimize mobility and activities of daily living toward the modified independent to independent level. 2. Cognitive impairment and dysphagia. Evaluation and treatment per Speech and Language Pathology. 3. Diabetes mellitus type 2. Continue insulin Lantus at 30 units subcutaneous daily. I have added a sliding scale of insulin lispro. Discussed with Nephrology: No contraindication currently to metformin given that he recently had lactic acidosis. Will initiate metformin at 250 mg twice daily with meals, with some caution regarding the diarrhea that he has been having. Will adjust insulin accordingly. 4. Recent infection with Clostridium difficile colitis. He has had considerable improvement in his diarrhea since the addition of pancreatic enzymes. Will continue the pancreatic enzymes. He will have isolation precautions appropriate to Clostridium difficile. 5. Fluid overload and likely diastolic congestive heart failure. He had an echocardiogram in the hospital, which was not sufficient for estimating diastolic function, however, systolic function was normal. He had a moderately elevated BNP consistent with congestive heart failure. His admission weight was 95 kg; after hydration for septic shock, on August 18, his weight was 123 kg and upon admission today, his weight is 102 kg. So he has diuresed greater than 20 kg but is still 7 kg above his admission weight. Upon hospital admission, he was likely dehydrated. Will follow daily weights. Will continue furosemide as prescribed out of the hospital at 80 mg twice daily at 0900 and 1500. As he approaches what would appear to be a dry weight with resolution of symptoms of fluid overload including edema and JVD, furosemide will be tapered towards discontinuation. 6. History of hypertension, not currently hypertensive. He may benefit from initiation of antihypertensive medications once his fluid overload is fully treated. 7. Prophylaxis. He has ambulated greater than 400 feet. He is close to 3 weeks since his hospital admission. It seems unlikely that he needs any pharmacologic prophylaxis at present and I will not order any. He will have SCDs at night. He will be encouraged to ambulate to meals. 8. He will have follow up routinely with his primary care provider, Dr. César Hernández. He is to see global engineering manager, Dr. Toy Lema within 3 days of discharge from the rehabilitation unit. /[id number]/MODL MTDD
[2018-08-27] MEDS: LIPASE 12,000/AMYLASE/PROTEASE (CREON) 1 CAP PO SCH (18:23)
[2018-08-27] MEDS: metFORMIN HCL 500 MG TAB PO SCH (18:24)
[2018-08-27] MEDS: MELATONIN 3 MG TAB PO SCH (20:17)
[2018-08-28] MEDS: INSULIN LISPRO 100 UNIT/ML SC SCH ×3 (08:32→17:30)
[2018-08-28] MEDS: THIAMINE HCL 100 MG TAB PO SCH (08:43)
[2018-08-28] MEDS: FUROSEMIDE 40 MG TAB PO SCH ×2 (08:43→14:06)
[2018-08-28] MEDS: metFORMIN HCL 500 MG TAB PO SCH ×2 (08:43→17:30)
[2018-08-28] MEDS: LIPASE 12,000/AMYLASE/PROTEASE (CREON) 1 CAP PO SCH ×3 (08:46→17:29)
[2018-08-28] MEDS ORDERED: INSULIN GLARGINE 100 UNITS/ML UNIT SC SCH ×3 (09:00→21:00)
--- NOTE | 2018-08-28 11:49 | SOAPPROG ---
SOAP Progress Note Assessment/Plan: Assessment: Debility status post prolonged hospitalization for critical illness. PT and OT to optimize mobility and activities of daily living toward the modified independent to independent level. Cognitive impairment following hospital delirium, and dysphagia. Evaluation and treatment per Speech and Language Pathology. Diabetes mellitus type 2. Continue insulin Lantus at 30 units subcutaneous daily and sliding scale of insulin lispro. Discussed with Nephrology: No contraindication currently to metformin given that he recently had lactic acidosis. * Started metformin at 250 mg twice daily with meals on 08/27/2018, with some caution regarding the diarrhea that he has been having. Increased to 500 mg twice daily with meals on 08/28/2018. * Will reduce Lantus insulin to 10 units in the morning of 08/29/2018 and 15 units at HS 08/29/2018 with goal to taper dose as metformin is titrated, and to use only evening Lantus to more easily adjust dose based on the next days fasting. Recent infection with Clostridium difficile colitis. He has had considerable improvement in his diarrhea since the addition of pancreatic enzymes. Will continue the pancreatic enzymes. He will have isolation precautions appropriate to Clostridium difficile. Fluid overload and likely diastolic congestive heart failure. He had an echocardiogram in the hospital, which was not sufficient for estimating diastolic function, however, systolic function was normal. He had a moderately elevated BNP consistent with congestive heart failure. His admission weight was 95 kg; after hydration for septic shock, on August 18, his weight was 123 kg and upon admission today, his weight is 102 kg. So he has diuresed greater than 20 kg but is still 7 kg above his admission weight. Upon hospital admission, he was likely dehydrated. * Will follow daily weights. * Continue furosemide as prescribed out of the hospital at 80 mg twice daily at 0900 and 1500. As he approaches what would appear to be a dry weight with resolution of symptoms of fluid overload including edema and JVD, furosemide will be tapered towards discontinuation. History of hypertension, not currently hypertensive. He may benefit from initiation of antihypertensive medications once his fluid overload is fully treated. Prophylaxis. He has ambulated greater than 400 feet. He is close to 3 weeks since his hospital admission. It seems unlikely that he needs any pharmacologic prophylaxis at present and I will not order any. He will have SCDs at night. He will be encouraged to ambulate to meals. FOLLOW-UP: He will have follow up routinely with his primary care provider, Dr. César Hernández. He is to see office automation clerk, Dr. Toy Lema within 3 days of discharge from the rehabilitation unit. 08/28/18 12:18 Subjective: No complaints. Slept well. Not in pain. No cough or dyspnea. Had an episode of fecal urgency during PT and had some incontinence, contained in his briefs. He reports bowel movements are improved however relative to past several days in the hospital, and very much improved relative to when he had C diff diarrhea. Objective: Vital Signs Temp Pulse Resp BP Pulse Ox 36.7 C 75 16 107/69 97 08/28/18 06:21 08/28/18 06:21 08/28/18 06:21 08/28/18 06:21 08/28/18 06:21 08/27/18 08/28/18 08/29/18 05:59 05:59 05:59 Intake Total 800 240 Output Total 1000 Balance -200 240 Physical Exam - Physical Exam General Appearance: WD/WN, alert, no apparent distress Respiratory: No respiratory distress, No accessory muscle use Cardiac/Chest: edema (2 to 3+ bilateral lower extremities), JVD (To jaw) Skin: normal color, warm/dry Neuro/Psych: no motor/sensory deficits, alert, normal mood/affect, oriented x 3 ICD10 Worksheet Patient Problems: Problems Problem Status Onset Acute renal failure Acute Aspiration pneumonia Acute Pancreatitis, acute Acute Septic shock Acute
--- NOTE | 2018-08-28 11:50 | PDOREHIP ---
Admission [facility] - Admission - 3 Day Assessment Period Admission Date/Day 1: 08/27/18 Day 2: 08/28/18 Day 3: 08/29/18 - Active Diagnoses Comorbidities and Co-existing Conditions at Admission: 32536. DM (e.g. diabetic retinopathy, nephropathy, and neuropathy) - Skin Conditions Unhealed Pressure Ulcer (1 or more/Stage 1 or >)-Admission: 0. No # Stage 1 Pressure Ulcers-Admission: 0 # Stage 2 Pressure Ulcers-Admission: 0 # Stage 3 Pressure Ulcers-Admission: 0 # Stage 4 Pressure Ulcers-Admission: 0 # Unstageable Pressure Ulcers (Non-remove Dress)-Admission: 0 # Unstageable Pressure Ulcers (Slough/Eschar)-Admission: 0 # Unstageable Pressure Ulcers (Deep Tissue Injury)-Admission: 0
[2018-08-28] MEDS: MELATONIN 3 MG TAB PO SCH (21:04)
[2018-08-29 07:37] LABS: PLATELET COUNT 385 10^3/uL (150-400)
[2018-08-29] MEDS: metFORMIN HCL 500 MG TAB PO SCH (08:53)
[2018-08-29] MEDS: FUROSEMIDE 40 MG TAB PO SCH ×2 (08:53→16:08)
[2018-08-29] MEDS: THIAMINE HCL 100 MG TAB PO SCH (08:53)
[2018-08-29] MEDS: INSULIN LISPRO 100 UNIT/ML SC SCH ×3 (08:54→17:16)
[2018-08-29] MEDS: LIPASE 12,000/AMYLASE/PROTEASE (CREON) 1 CAP PO SCH ×3 (08:54→17:30)
[2018-08-29] MEDS ORDERED: INSULIN GLARGINE 100 UNITS/ML UNIT SC SCH ×2 (09:00→21:00)
--- NOTE | 2018-08-29 10:52 | SOAPPROG ---
SOAP Progress Note Assessment/Plan: Assessment: Debility status post prolonged hospitalization for critical illness. * Initial functional independence measure is 89 on 08/29/2018. Standby assist to contact guard assist for transfers and for gait. Ambulated 250 ft with a front wheeled walker. Diallo balance inventory 33/56 indicating low to moderate fall risk. Climbed and descended 6 stairs, needed minimal assist for descending. Dressing requires setup to standby assist with cues for safety. Grooming and hygiene were were done standing with standby assist. Shower transfer required contact guard assist and bathing required standby assist. * Continue PT and OT to optimize mobility and activities of daily living toward the modified independent to independent level. Cognitive impairment following hospital delirium, and dysphagia. * Scored 24/30 on the [place]. Has decreased executive function primarily but also difficulties with memory and likes occult fluency. Will need supervision for money management and for medications. But he has attention issues raising concerns about safety with driving. 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 Diabetes mellitus type 2. Discussed with Nephrology: No contraindication currently to metformin given that he recently had lactic acidosis. * Started metformin at 250 mg twice daily with meals on 08/27/2018, with some caution regarding the diarrhea that he has been having. Increased to 500 mg twice daily with meals on 08/28/2018. Tolerating with no new GI symptoms as of 08/29/2018. * Fasting glucose was 73 on 08/29/2018. Tapering Lantus to 5 units q.a.m. And 15 units q.p.m.starting with evening dose on 08/29/2018. Plan to have only HS Lantus so dose can be adjusted based on that day's fasting. Goal to discontinue insulin if possible. Recent infection with Clostridium difficile colitis. He has had considerable improvement in his diarrhea since the addition of pancreatic enzymes. Will continue the pancreatic enzymes, 2 which diarrhea seemed to respond when he was in the hospital after treatment of C diff. He will have isolation precautions appropriate to Clostridium difficile. Fluid overload and likely diastolic congestive heart failure. He had an echocardiogram in the hospital, which was not sufficient for estimating diastolic function, however, systolic function was normal. He had a moderately elevated BNP consistent with congestive heart failure. His admission weight was 95 kg; after hydration for septic shock, on August 18, his weight was 123 kg and upon admission to rehabilitation unit, his weight was 102 kg. So he has diuresed greater than 20 kg but is still 7 kg above his admission weight. Upon hospital admission, he was likely dehydrated. * Will follow daily weights. * Continue furosemide as prescribed out of the hospital at 80 mg twice daily at 0900 and 1500. As he approaches what would appear to be a dry weight with resolution of symptoms of fluid overload including edema and JVD, furosemide will be tapered towards discontinuation. * Gradual diuresis of 0.3 kg from 08/28/2018 to 08/29/2018. Renal function overall stable, with stage III renal insufficiency, on labs 08/29/2018. History of hypertension, not currently hypertensive. He may benefit from initiation of antihypertensive medications once his fluid overload is fully treated. Prophylaxis. He has ambulated greater than 400 feet. He is close to 3 weeks since his hospital admission. It seems unlikely that he needs any pharmacologic prophylaxis at present and I will not order any. He will have SCDs at night. He will be encouraged to ambulate to meals. DISPOSITION: Attended staffing, 15 min. Discussed with case management, dietitian, nursing, PT, OT, ELECTRON BEAM MACHINE WELDER SETTER. Lives [place] in the [facility] with his brother. They are 13 steps to enter from the garage, or he can walk around the house and enter with no steps. Need to clarify regarding available supervision. He may not be comfortable with therapists coming to the home. Tentative discharge date set for 09/05/2018. FOLLOW-UP: He will have follow up routinely with his primary care provider, Dr. César Hernández. He is to see barrel raiser, Dr. Toy Lema within 3 days of discharge from the rehabilitation unit. 08/29/18 10:36 Subjective: No complaints. Slept through the night. Bowel movements are increasingly formed and less frequent. Not in pain, no cough or dyspnea, no fevers or chills. Objective: Vital Signs Temp Pulse Resp BP Pulse Ox 36.6 C 85 16 121/61 H 97 08/29/18 06:14 08/29/18 06:14 08/29/18 06:14 08/29/18 06:14 08/29/18 06:14 Laboratory Results 08/29/18 06:15 08/29/18 06:15 08/28/18 08/29/18 08/30/18 05:59 05:59 05:59 Intake Total 800 1280 Output Total 1000 500 Balance -200 780 - Time Spent With Patient Time Spent With Patient: Greater than 35 min floor time today, including more than 50% of time in coordination of care during staffing meeting, and counseling patient. Physical Exam - Physical Exam General Appearance: WD/WN, alert, no apparent distress Respiratory: normal breath sounds, No crackles, No rhonchi, No wheezing Cardiac/Chest: regular rate, rhythm, edema (2 to 3+ bilateral lower extremities) Skin: normal color, warm/dry Neuro/Psych: no motor/sensory deficits, alert, normal mood/affect, oriented x 3 ICD10 Worksheet Patient Problems: Problems Problem Status Onset Acute renal failure Acute Aspiration pneumonia Acute Pancreatitis, acute Acute Septic shock Acute
[2018-08-29] MEDS: metFORMIN HCL 850 MG TAB PO SCH (17:31)
[2018-08-29] MEDS: INSULIN GLARGINE 100 UNITS/ML UNIT SC SCH (20:50)
[2018-08-29] MEDS: MELATONIN 3 MG TAB PO SCH (20:50)
[2018-08-30] MEDS: metFORMIN HCL 850 MG TAB PO SCH ×2 (08:12→17:02)
[2018-08-30] MEDS: THIAMINE HCL 100 MG TAB PO SCH (08:13)
[2018-08-30] MEDS: FUROSEMIDE 40 MG TAB PO SCH ×2 (08:13→15:38)
[2018-08-30] MEDS: INSULIN LISPRO 100 UNIT/ML SC SCH ×3 (08:13→17:03)
[2018-08-30] MEDS: LIPASE 12,000/AMYLASE/PROTEASE (CREON) 1 CAP PO SCH ×3 (08:13→17:02)
[2018-08-30] MEDS: INSULIN GLARGINE 100 UNITS/ML UNIT SC SCH ×2 (08:15→20:28)
--- NOTE | 2018-08-30 15:10 | SOAPPROG ---
SOAP Progress Note Assessment/Plan: Assessment: 53 YO man with: Debility status post prolonged hospitalization for critical illness. * Initial functional independence measure is 89 on 08/29/2018. Standby assist to contact guard assist for transfers and for gait. Ambulated 250 ft with a front wheeled walker. Diallo balance inventory 33/56 indicating low to moderate fall risk. Climbed and descended 6 stairs, needed minimal assist for descending. Dressing requires setup to standby assist with cues for safety. Grooming and hygiene were were done standing with standby assist. Shower transfer required contact guard assist and bathing required standby assist. * Continue PT and OT to optimize mobility and activities of daily living toward the modified independent to independent level. Cognitive impairment following hospital delirium, and dysphagia. * Scored 24/30 on the MOCA. Has decreased executive function primarily but also difficulties with memory and likes occult fluency. Will need supervision for money management and for medications. But he has attention issues raising concerns about safety with driving. 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 Diabetes mellitus type 2. Discussed with Nephrology: No contraindication currently to metformin given that he recently had lactic acidosis. * Started metformin at 250 mg twice daily with meals on 08/27/2018, with some caution regarding the diarrhea that he has been having. Increased to 500 mg twice daily with meals on 08/28/2018. Tolerating with no new GI symptoms as of 08/29/2018. * Fasting glucose was 124 on 08/30/2018. Tapering Lantus to 5 units q.a.m. And 15 units q.p.m.starting with evening dose on 08/29/2018. Plan to have only HS Lantus so dose can be adjusted based on that day's fasting. Goal to discontinue insulin if possible. Recent infection with Clostridium difficile colitis. He has had considerable improvement in his diarrhea since the addition of pancreatic enzymes. Will continue the pancreatic enzymes, 2 which diarrhea seemed to respond when he was in the hospital after treatment of C diff. He will have isolation precautions appropriate to Clostridium difficile. Fluid overload and likely diastolic congestive heart failure. He had an echocardiogram in the hospital, which was not sufficient for estimating diastolic function, however, systolic function was normal. He had a moderately elevated BNP consistent with congestive heart failure. His admission weight was 95 kg; after hydration for septic shock, on August 18, his weight was 123 kg and upon admission to rehabilitation unit, his weight was 102 kg. So he has diuresed greater than 20 kg but is still 7 kg above his admission weight. Upon hospital admission, he was likely dehydrated. * Will follow daily weights. * Continue furosemide as prescribed out of the hospital at 80 mg twice daily at 0900 and 1500. As he approaches what would appear to be a dry weight with resolution of symptoms of fluid overload including edema and JVD, furosemide will be tapered towards discontinuation. * Gradual diuresis of 0.3 kg from 08/28/2018 to 08/29/2018. Renal function overall stable, with stage III renal insufficiency, on labs 08/29/2018. History of hypertension, not currently hypertensive. He may benefit from initiation of antihypertensive medications once his fluid overload is fully treated. Prophylaxis. He has ambulated greater than 400 feet. He is close to 3 weeks since his hospital admission. It seems unlikely that he needs any pharmacologic prophylaxis at present and I will not order any. He will have SCDs at night. He will be encouraged to ambulate to meals. DISPOSITION: [place] They are 13 steps to enter from the garage, or he can walk around the house and enter with no steps. Need to clarify regarding available supervision. He may not be comfortable with therapists coming to the home. Tentative discharge date set for 09/05/2018. FOLLOW-UP: He will have follow up routinely with his primary care provider, Dr. César Hernández. He is to see basket braider, Dr. Toy Lema within 3 days of discharge from the rehabilitation unit. Subjective: No complaints. Bored. Slept through the night. Not in pain, no cough or dyspnea, no fevers or chills. Objective: Plan: Cont Current rehab treatmen plan 08/30/18 15:07 Objective: Vital Signs Temp Pulse Resp BP Pulse Ox 36.3 C 68 18 102/68 97 08/30/18 06:07 08/30/18 06:07 08/30/18 06:07 08/30/18 06:07 08/30/18 06:07 Laboratory Results 08/29/18 06:15 08/29/18 06:15 08/29/18 08/30/18 08/31/18 05:59 05:59 04:59 Intake Total 1280 2050 480 Output Total 500 Balance 780 2050 480 Physical Exam - Physical Exam General Appearance: alert, no apparent distress, other (no acute changes) Neck: supple Respiratory: lungs clear Cardiac/Chest: regular rate, rhythm Abdomen: normal bowel sounds, soft Skin: normal color, warm/dry Extremities: No pedal edema, No calf tenderness Neuro/Psych: alert, normal mood/affect, oriented x 3, other (no acut changes) ICD10 Worksheet Patient Problems: Problems Problem Status Onset Acute renal failure Acute Aspiration pneumonia Acute Pancreatitis, acute Acute Septic shock Acute
[2018-08-30] MEDS: MELATONIN 3 MG TAB PO SCH (20:28)
[2018-08-31] MEDS: INSULIN LISPRO 100 UNIT/ML SC SCH ×3 (08:03→17:09)
[2018-08-31] MEDS: LIPASE 12,000/AMYLASE/PROTEASE (CREON) 1 CAP PO SCH ×3 (08:03→17:09)
[2018-08-31] MEDS: FUROSEMIDE 40 MG TAB PO SCH ×2 (08:03→15:58)
[2018-08-31] MEDS: THIAMINE HCL 100 MG TAB PO SCH (08:03)
[2018-08-31] MEDS: metFORMIN HCL 850 MG TAB PO SCH ×2 (08:03→17:09)
[2018-08-31] MEDS: INSULIN GLARGINE 100 UNITS/ML UNIT SC SCH ×2 (08:03→20:25)
--- NOTE | 2018-08-31 14:46 | SOAPPROG ---
SOAP Progress Note Assessment/Plan: Assessment: 53 YO man with: Debility status post prolonged hospitalization for critical illness. * Initial functional independence measure is 89 on 08/29/2018. Standby assist to contact guard assist for transfers and for gait. Ambulated 250 ft with a front wheeled walker. Diallo balance inventory 33/56 indicating low to moderate fall risk. Climbed and descended 6 stairs, needed minimal assist for descending. Dressing requires setup to standby assist with cues for safety. Grooming and hygiene were were done standing with standby assist. Shower transfer required contact guard assist and bathing required standby assist. * Continue PT and OT to optimize mobility and activities of daily living toward the modified independent to independent level. Cognitive impairment following hospital delirium, and dysphagia. * Scored 24/30 on the MOCA. Has decreased executive function primarily but also difficulties with memory and likes occult fluency. Will need supervision for money management and for medications. But he has attention issues raising concerns about safety with driving. 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 Diabetes mellitus type 2. Discussed with Nephrology: No contraindication currently to metformin given that he recently had lactic acidosis. * Started metformin at 250 mg twice daily with meals on 08/27/2018, Increased to 500 mg twice daily with meals on 08/28/2018. Tolerating as of 08/29/2018. * Fasting glucose was 120 on 08/31/2018. Tapering Lantus to 5 units q.a.m. And 15 units q.p.m.starting with evening dose on 08/29/2018. Plan to have only HS Lantus so dose can be adjusted based on that day's fasting. Will D/C am Lantus dose. Goal to discontinue insulin if possible. Recent infection with Clostridium difficile colitis. He has had considerable improvement in his diarrhea since the addition of pancreatic enzymes. Will continue the pancreatic enzymes, 2 which diarrhea seemed to respond when he was in the hospital after treatment of C diff. He will have isolation precautions appropriate to Clostridium difficile. Fluid overload and likely diastolic congestive heart failure. He had an echocardiogram in the hospital, which was not sufficient for estimating diastolic function, however, systolic function was normal. He had a moderately elevated BNP consistent with congestive heart failure. His admission weight was 95 kg; after hydration for septic shock, on August 18, his weight was 123 kg and upon admission to rehabilitation unit, his weight was 102 kg. So he has diuresed greater than 20 kg but is still 7 kg above his admission weight. Upon hospital admission, he was likely dehydrated. * Will follow daily weights. Stable, down 2kg. * Continue furosemide as prescribed out of the hospital at 80 mg twice daily at 0900 and 1500. As he approaches what would appear to be a dry weight with resolution of symptoms of fluid overload including edema and JVD, furosemide will be tapered towards discontinuation. * Gradual diuresis of 0.3 kg from 08/28/2018 to 08/29/2018. Renal function overall stable, with stage III renal insufficiency, on labs 08/29/2018. History of hypertension, not currently hypertensive. 108/49 on 08/31. He may benefit from initiation of antihypertensive medications once his fluid overload is fully treated. Prophylaxis. He has ambulated greater than 400 feet. He is close to 3 weeks since his hospital admission. It seems unlikely that he needs any pharmacologic prophylaxis at present and I will not order any. He will have SCDs at night. He will be encouraged to ambulate to meals. DISPOSITION: Lives in a ranch house in the [facility] with his brother. They are 13 steps to enter from the garage, or he can walk around the house and enter with no steps. Need to clarify regarding available supervision. He may not be comfortable with therapists coming to the home. Tentative discharge date set for 09/05/2018. FOLLOW-UP: He will have follow up routinely with his primary care provider, Dr. César Hernández. He is to see plate gauger, Dr. Toy Lema within 3 days of discharge from the rehabilitation unit. Subjective: No complaints. Bored. Sleep well. Not in pain, no cough or dyspnea, no fevers or chills. Objective: Plan: Cont Current rehab treatment plan 08/31/18 14:45 Objective: Vital Signs Temp Pulse Resp BP Pulse Ox 36.5 C 75 16 108/49 L 98 08/31/18 08:00 08/31/18 08:00 08/31/18 08:00 08/31/18 08:00 08/30/18 18:51 Laboratory Results 08/29/18 06:15 08/29/18 06:15 08/30/18 08/31/18 09/01/18 06:59 05:59 05:59 Intake Total 480 Output Total Balance 480 Physical Exam - Physical Exam General Appearance: alert, no apparent distress Neck: supple Respiratory: lungs clear Cardiac/Chest: regular rate, rhythm Skin: normal color, warm/dry Extremities: No pedal edema, No calf tenderness Neuro/Psych: alert, normal mood/affect, oriented x 3 ICD10 Worksheet Patient Problems: Problems Problem Status Onset Acute renal failure Acute Aspiration pneumonia Acute Pancreatitis, acute Acute Septic shock Acute
[2018-08-31] MEDS: MELATONIN 3 MG TAB PO SCH (20:26)
[2018-09-01] MEDS: THIAMINE HCL 100 MG TAB PO SCH (07:28)
[2018-09-01] MEDS: FUROSEMIDE 40 MG TAB PO SCH ×2 (07:28→14:53)
[2018-09-01] MEDS: LIPASE 12,000/AMYLASE/PROTEASE (CREON) 1 CAP PO SCH ×3 (07:28→17:26)
[2018-09-01] MEDS: INSULIN LISPRO 100 UNIT/ML SC SCH ×3 (07:29→17:27)
[2018-09-01] MEDS: metFORMIN HCL 850 MG TAB PO SCH (07:29)
--- NOTE | 2018-09-01 13:39 | SOAPPROG ---
SOAP Progress Note Assessment/Plan: Assessment: Debility status post prolonged hospitalization for critical illness. * Initial functional independence measure is 89 on 08/29/2018. Standby assist to contact guard assist for transfers and for gait. Ambulated 250 ft with a front wheeled walker. Diallo balance inventory 33/56 indicating low to moderate fall risk. Climbed and descended 6 stairs, needed minimal assist for descending. Dressing requires setup to standby assist with cues for safety. Grooming and hygiene were were done standing with standby assist. Shower transfer required contact guard assist and bathing required standby assist. * Has since advanced to independent in his room. Diallo balance inventory improved to 45 as of 08/31/2018. * Continue PT and OT to optimize mobility and activities of daily living toward the modified independent to independent level. Cognitive impairment following hospital delirium, and dysphagia. * Scored 24/30 on the MoCA. Has decreased executive function primarily but also difficulties with memory and lexical fluency. Will need supervision for money management and for medications. But he has attention issues raising concerns about safety with driving. 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 Diabetes mellitus type 2. Discussed with Nephrology: No contraindication currently to metformin given that he recently had lactic acidosis. * Metformin has been titrated from 250 mg twice daily to 850 mg twice daily during his stay. Tolerating well. Will increase to 1000 mg twice daily starting 09/01/2018. * Lantus has been tapered and is currently at 15 mg at bedtime. Continue to monitor and taper as possible. Recent infection with Clostridium difficile colitis. He has had considerable improvement in his diarrhea since the addition of pancreatic enzymes. Will continue the pancreatic enzymes, 2 which diarrhea seemed to respond when he was in the hospital after treatment of C diff. He will have isolation precautions appropriate to Clostridium difficile. Fluid overload and likely diastolic congestive heart failure. He had an echocardiogram in the hospital, which was not sufficient for estimating diastolic function, however, systolic function was normal. He had a moderately elevated BNP consistent with congestive heart failure. His admission weight was 95 kg; after hydration for septic shock, on August 18, his weight was 123 kg, and upon admission to rehabilitation unit on 08/27/2008, his weight was 102 kg. So he had diuresed greater than 20 kg but was still 7 kg above his admission weight. Upon hospital admission, he was likely dehydrated. * Will follow daily weights. * Taper furosemide from 80 mg twice daily at 0900 and 1500 to 80 mg daily and 40 mg at 1500. * Renal function overall stable, with stage III renal insufficiency, on labs 08/29/2018. Recheck 09/02/2018. History of hypertension, not currently hypertensive. He may benefit from initiation of antihypertensive medications once his fluid overload is fully treated as diuretic is tapered. Prophylaxis. He has ambulated greater than 400 feet. He is close to 3 weeks since his hospital admission. It seems unlikely that he needs any pharmacologic prophylaxis at present and I will not order any. He will have SCDs at night. He will be encouraged to ambulate to meals. DISPOSITION: [place]. They are 13 steps to enter from the garage, or he can walk around the house and enter with no steps. Need to clarify regarding available supervision. He may not be comfortable with therapists coming to the home. Tentative discharge date set for 09/05/2018. FOLLOW-UP: He will have follow up routinely with his primary care provider, Dr. César Hernández. He is to see glove parts cutter, Dr. Toy Lema within 3 days of discharge from the rehabilitation unit. 09/01/18 13:29 Subjective: No complaints. Has been advanced to independent in his room. Not in pain, no fevers or chills, no cough or dyspnea. He thinks his swelling is down. Objective: Vital Signs Temp Pulse Resp BP Pulse Ox 36.6 C 64 18 112/60 95 09/01/18 05:47 09/01/18 05:47 09/01/18 05:47 09/01/18 05:47 09/01/18 05:47 Laboratory Results 08/29/18 06:15 08/29/18 06:15 08/31/18 09/01/18 09/02/18 05:59 05:59 05:59 Intake Total 1260 490 Output Total Balance 1260 490 Physical Exam - Physical Exam General Appearance: WD/WN, alert, no apparent distress, obese Respiratory: normal breath sounds, No crackles, No rhonchi, No wheezing Cardiac/Chest: regular rate, rhythm, edema (1+ bilateral pretibial), No JVD, No diastolic murmur, No systolic murmur Skin: normal color, warm/dry Neuro/Psych: no motor/sensory deficits, alert, normal mood/affect, oriented x 3 ICD10 Worksheet Patient Problems: Problems Problem Status Onset Acute renal failure Acute Aspiration pneumonia Acute Pancreatitis, acute Acute Septic shock Acute
[2018-09-01] MEDS: metFORMIN HCL 500 MG TAB PO SCH (17:26)
[2018-09-01] MEDS: INSULIN GLARGINE 100 UNITS/ML UNIT SC SCH (20:35)
[2018-09-01] MEDS: MELATONIN 3 MG TAB PO SCH (20:35)
--- NOTE | 2018-09-02 07:40 | SOAPPROG ---
SOAP Progress Note Assessment/Plan: 53-year-old male status post severe pancreatitis, septic shock, metabolic acidosis, acute hypoxemic respiratory failure and acute renal failure on inpatient rehabilitation with impairments in mobility and self-care and cognition. Today's update: Patient making improvements from a functional standpoint, continues to diurese. He still has mild pitting edema especially on the right leg, continues to gradually lose body mass. Plan to continue diuresis for now, monitoring closely. Additionally, his blood sugars have been well managed over the past 24 hr, plan to decrease the glargine today to 7 units at bedtime and continue sliding scale insulin. Goal to be on metformin at discharge. No reported episodes of symptomatic hypoglycemia. Labs ok, especially K and renal function (stable). Participating well in therapies, continue rehabilitation plan. A total of 35 min was spent on the floor in the care of the patient, the majority of which was spent in counseling coordination of care regarding diabetes and fluid management as well as coordination with the rehabilitation team. Additional issues reviewed without change today include recent C diff infection , history of hypertension, prophylaxis. 09/02/18 07:37 09/02/18 13:02 Subjective: Chief complaint: Fluid status and diabetes management No acute events overnight. Patient denies any new shortness of breath or chest pain, no new numbness, tingling, or weakness. He endorses that he continues to diurese well on the furosemide, he notes that it works better for fluid management and the hydrochlorothiazide that he was on at home. He feels that his legs continue to shrink and he is happy with the progress of his diuresis. He is urinating some at night but not in excess of what he did at home. Additionally, he denies any clamminess or confusion. His blood sugars over the past 24 hr have been between 99 and 135, 99 in AM and has been receiving 15 units of glargine at night as in addition to titrating up the metformin. Patient understands the signs and symptoms of hypoglycemia. Objective: Vital Signs Temp Pulse Resp BP Pulse Ox 36.6 C 65 16 100/62 96 09/02/18 06:52 09/02/18 06:52 09/02/18 06:52 09/02/18 06:52 09/02/18 06:52 Laboratory Results 08/29/18 06:15 11/02/18 06:15 09/01/18 09/02/18 09/03/18 05:59 05:59 05:59 Intake Total 1260 2390 Balance 1260 2390 Physical Exam - Physical Exam General Appearance: WD/WN, alert, no apparent distress EENT: No scleral icterus (R), No scleral icterus (L) Respiratory: No respiratory distress, No accessory muscle use, No wheezing Cardiac/Chest: normal peripheral pulses, regular rate, rhythm, edema (1+ pitting edema on the right leg, none on the left. Patient states he has always had more swelling in the right leg.) Skin: normal color, warm/dry, other (Some venous stasis skin changes in the bilateral lower limbs, right greater than left), No cyanosis, No diaphoresis Extremities: pedal edema, No calf tenderness Neuro/Psych: alert, normal mood/affect ICD10 Worksheet Patient Problems: Problems Problem Status Onset Acute renal failure Acute Aspiration pneumonia Acute Pancreatitis, acute Acute Septic shock Acute
[2018-09-02] MEDS ORDERED: INSULIN GLARGINE 100 UNITS/ML UNIT SC SCH (08:03)
[2018-09-02] MEDS: INSULIN LISPRO 100 UNIT/ML SC SCH ×3 (08:19→17:42)
[2018-09-02] MEDS: metFORMIN HCL 500 MG TAB PO SCH ×2 (08:21→17:49)
[2018-09-02] MEDS: LIPASE 12,000/AMYLASE/PROTEASE (CREON) 1 CAP PO SCH ×3 (08:21→17:49)
[2018-09-02] MEDS: THIAMINE HCL 100 MG TAB PO SCH (08:22)
[2018-09-02] MEDS: FUROSEMIDE 40 MG TAB PO SCH ×2 (08:22→15:36)
[2018-09-02] MEDS: MELATONIN 3 MG TAB PO SCH (21:31)
[2018-09-03] MEDS: INSULIN LISPRO 100 UNIT/ML SC SCH ×3 (07:56→17:01)
[2018-09-03] MEDS: metFORMIN HCL 500 MG TAB PO SCH ×2 (07:56→17:01)
[2018-09-03] MEDS: THIAMINE HCL 100 MG TAB PO SCH (07:56)
[2018-09-03] MEDS: FUROSEMIDE 40 MG TAB PO SCH ×2 (07:56→16:06)
[2018-09-03] MEDS: LIPASE 12,000/AMYLASE/PROTEASE (CREON) 1 CAP PO SCH ×3 (07:56→17:01)
--- NOTE | 2018-09-03 12:55 | SOAPPROG ---
SOAP Progress Note Assessment/Plan: Assessment: Debility status post prolonged hospitalization for critical illness. Currently independent in room with FWW. Probably will be advanced to independent on floor later today. * Initial functional independence measure is 89 on 08/29/2018. * Has since advanced to independent in his room. Diallo balance inventory improved to 45 as of 08/31/2018. * Continue PT and OT to optimize mobility and activities of daily living toward the modified independent to independent level. Cognitive impairment following hospital delirium, and dysphagia. * Scored 24/30 on the MoCA. Has decreased executive function primarily but also difficulties with memory and lexical fluency. Will need supervision for money management and for medications. But he has attention issues raising concerns about safety with driving. IN FAMILY CONFERENCE TODAY, DISCUSSED WITH PATIENT AND HIS SISTER THAT PATIENT SHOULD BE CLEARED TO DRIVE DURING OUTPATIENT PHYSICAL THERAPY ASSESSMENT. 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 Diabetes mellitus type 2. Discussed with Nephrology: No contraindication currently to metformin given that he recently had lactic acidosis. * Metformin has been titrated from 250 mg twice daily to 850 mg twice daily during his stay. Tolerating well. Will increase to 1000 mg twice daily starting 09/01/2018. * Lantus has been tapered. WILL CHECK WITH NURSING REGARDING CURRENT DOSE. MEDICATION LIST STATES 7 UNITS SUBCUTANEOUS HS SCHEDULED. Recent infection with Clostridium difficile colitis. He has had considerable improvement in his diarrhea since the addition of pancreatic enzymes. Will continue the pancreatic enzymes, 2 which diarrhea seemed to respond when he was in the hospital after treatment of C diff. He will have isolation precautions appropriate to Clostridium difficile. Fluid overload and likely diastolic congestive heart failure. He had an echocardiogram in the hospital, which was not sufficient for estimating diastolic function, however, systolic function was normal. He had a moderately elevated BNP consistent with congestive heart failure. His admission weight was 95 kg; after hydration for septic shock, on August 18, his weight was 123 kg, and upon admission to rehabilitation unit on 08/27/2008, his weight was 102 kg. So he had diuresed greater than 20 kg but was still 7 kg above his admission weight. Upon hospital admission, he was likely dehydrated. * Will follow daily weights. * Taper furosemide from 80 mg twice daily at 0900 and 1500 to 80 mg daily and 40 mg at 1500. CONTINUE LASIX 80 Q.A.M. AND 40 Q.P.M. * Renal function overall stable, with stage III renal insufficiency, on labs 08/29/2018. Recheck 09/02/2018. SODIUM 135, POTASSIUM 4.2, BUN/CREATININE 19/1.4 History of hypertension, not currently hypertensive. He may benefit from initiation of antihypertensive medications once his fluid overload is fully treated as diuretic is tapered. BLOOD PRESSURE THIS MORNING 107/63 Prophylaxis. CURRENTLY AMBULATING 500 FT DAILY.. He is close to 3 weeks since his hospital admission. It seems unlikely that he needs any pharmacologic prophylaxis at present and I will not order any. He will have SCDs at night. He will be encouraged to ambulate to meals. DISPOSITION: [place]. They are 13 steps to enter from the garage, or he can walk around the house and enter with no steps. Need to clarify regarding available supervision. He may not be comfortable with therapists coming to the home. DISCHARGE DATE SET FOR 09/05/2018. FOLLOW-UP: He will have follow up routinely with his primary care provider, Dr. César Hernández. He is to see company pilot, Dr. Toy Lema within 3 days of discharge from the rehabilitation unit. Plan: 09/03/18 12:48 09/03/18 12:50 Subjective: No complaints this morning. He reports that he is pleased with his progress in physical therapy. No problems reported by nursing staff. Objective: Vital Signs Temp Pulse Resp BP Pulse Ox 36.5 C 67 16 107/63 97 09/03/18 06:43 09/03/18 06:43 09/03/18 06:43 09/03/18 06:43 09/03/18 06:43 Laboratory Results 08/29/18 06:15 09/02/18 09:00 09/02/18 09/03/18 09/04/18 05:59 05:59 05:59 Intake Total 2390 1780 240 Balance 2390 1780 240 Physical Exam - Physical Exam General Appearance: WD/WN, alert, no apparent distress Respiratory: lungs clear, normal breath sounds Cardiac/Chest: regular rate, rhythm Abdomen: normal bowel sounds, non-tender, soft Skin: normal color, warm/dry, other (Stasis dermatitis skin changes noted right and left pretibial region) Extremities: swelling (+1-2 pitting edema right and left pretibial region), Barry's sign Neuro/Psych: normal mood/affect, oriented x 3, No motor weakness (Grossly normal upper extremity motor exam) ICD10 Worksheet Patient Problems: Problems Problem Status Onset Acute renal failure Acute Aspiration pneumonia Acute Pancreatitis, acute Acute Septic shock Acute
[2018-09-03] MEDS: MELATONIN 3 MG TAB PO SCH (20:16)
[2018-09-04] MEDS: INSULIN LISPRO 100 UNIT/ML SC SCH ×3 (08:58→19:01)
[2018-09-04] MEDS: metFORMIN HCL 500 MG TAB PO SCH ×2 (09:06→17:47)
[2018-09-04] MEDS: THIAMINE HCL 100 MG TAB PO SCH (09:07)
[2018-09-04] MEDS: FUROSEMIDE 40 MG TAB PO SCH ×2 (09:07→15:26)
[2018-09-04] MEDS: LIPASE 12,000/AMYLASE/PROTEASE (CREON) 1 CAP PO SCH ×3 (09:07→17:47)
--- NOTE | 2018-09-04 10:16 | SOAPPROG ---
SOAP Progress Note Assessment/Plan: Assessment: Debility status post prolonged hospitalization for critical illness. Currently independent in room with FWW. Probably will be advanced to independent on floor later today. * Initial functional independence measure is 89 on 08/29/2018. FIM SCORE FROM YESTERDAY IS TEAM CONFERENCE 109 * Has since advanced to independent in his room. Diallo balance inventory improved to 45 as of 08/31/2018. * Continue PT and OT to optimize mobility and activities of daily living toward the modified independent to independent level. Cognitive impairment following hospital delirium, and dysphagia. * Scored 24/30 on the MoCA. Has decreased executive function primarily but also difficulties with memory and lexical fluency. Will need supervision for money management and for medications. But he has attention issues raising concerns about safety with driving. IN FAMILY CONFERENCE TODAY, DISCUSSED WITH PATIENT AND HIS SISTER THAT PATIENT SHOULD BE CLEARED TO DRIVE DURING OUTPATIENT PHYSICAL THERAPY ASSESSMENT. 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 Diabetes mellitus type 2. Discussed with Nephrology: No contraindication currently to metformin given that he recently had lactic acidosis. * Metformin has been titrated from 250 mg twice daily to 850 mg twice daily during his stay. Tolerating well. Will increase to 1000 mg twice daily starting 09/01/2018. * DISCONTINUED LANTUS 7 UNITS LAST P.M.. THREE MOST RECENT BLOOD SUGARS WERE 121, 139 AND 126. THEREFORE PATIENT ADVISED THAT HE WILL NO LONGER NEED TO ADMINISTER THE LANTUS. HE VERBALIZED COMPREHENSION OF THIS. HE WILL CONTINUE CHECKING HIS BLOOD SUGARS AT HOME AFTER DISCHARGE. HE WILL HAVE FOLLOW-UP WITH HIS PRIMARY CARE PHYSICIAN WITHIN 1 WEEK AFTER DISCHARGE. Recent infection with Clostridium difficile colitis. He has had considerable improvement in his diarrhea since the addition of pancreatic enzymes. Will continue the pancreatic enzymes, 2 which diarrhea seemed to respond when he was in the hospital after treatment of C diff. He will have isolation precautions appropriate to Clostridium difficile. Fluid overload and likely diastolic congestive heart failure. He had an echocardiogram in the hospital, which was not sufficient for estimating diastolic function, however, systolic function was normal. He had a moderately elevated BNP consistent with congestive heart failure. His admission weight was 95 kg; after hydration for septic shock, on August 18, his weight was 123 kg, and upon admission to rehabilitation unit on 08/27/2008, his weight was 102 kg. So he had diuresed greater than 20 kg but was still 7 kg above his admission weight. Upon hospital admission, he was likely dehydrated. * Will follow daily weights. * Taper furosemide from 80 mg twice daily at 0900 and 1500 to 80 mg daily and 40 mg at 1500. CONTINUE LASIX 80 Q.A.M. AND 40 Q.P.M. PATIENT INFORMED THAT HE WILL CONTINUE TO DIURESE ON THE LASIX AND THIS WILL BE ADDRESSED BY HIS PRIMARY CARE PHYSICIAN FOLLOWING DISCHARGE. * Renal function overall stable, with stage III renal insufficiency, on labs 08/29/2018. Recheck 09/02/2018. SODIUM 135, POTASSIUM 4.2, BUN/CREATININE 19/1.4 History of hypertension, not currently hypertensive. He may benefit from initiation of antihypertensive medications once his fluid overload is fully treated as diuretic is tapered. BLOOD PRESSURE THIS MORNING 111/69 Prophylaxis. CURRENTLY AMBULATING 500 FT DAILY.. He is close to 3 weeks since his hospital admission. It seems unlikely that he needs any pharmacologic prophylaxis at present and I will not order any. He will have SCDs at night. He will be encouraged to ambulate to meals. DISPOSITION: HE WILL BE DISCHARGED TO HOME TOMORROW. HE WILL HAVE OUTPATIENT PHYSICAL THERAPY. HE WILL NOT HAVE OUTPATIENT OCCUPATIONAL THERAPY. HE WILL HAVE FOLLOW-UP WITH HIS PRIMARY CARE PHYSICIAN Lives in a [place] in the [facility] with his brother. They are 13 steps to enter from the garage, or he can walk around the house and enter with no steps. Need to clarify regarding available supervision. He may not be comfortable with therapists coming to the home. DISCHARGE DATE SET FOR 09/05/2018. FOLLOW-UP: He will have follow up routinely with his primary care provider, Dr. César Hernández. He is to see tower climber, Dr. Toy Lema within 3 days of discharge from the rehabilitation unit. Plan: 09/03/18 12:48 09/03/18 12:50 09/04/18 10:00 Subjective: PATIENT HAS NO COMPLAINTS. NO PROBLEMS REPORTED BY NURSING STAFF. HE DOES NOT REPORT DIFFICULTY SELF CHECKING HIS BLOOD GLUCOSE LEVEL. Objective: Vital Signs Temp Pulse Resp BP Pulse Ox 36.9 C 68 18 111/69 97 09/04/18 08:00 09/04/18 08:00 09/04/18 08:00 09/04/18 08:00 09/04/18 08:00 Laboratory Results 08/29/18 06:15 09/02/18 09:00 09/03/18 09/04/18 09/05/18 05:59 05:59 05:59 Intake Total 1780 760 Balance 1780 760 Physical Exam - Physical Exam General Appearance: WD/WN, alert, no apparent distress Respiratory: lungs clear, normal breath sounds Abdomen: non-tender, soft Skin: normal color, warm/dry, other (BRAWNY EDEMA SKIN CHANGES BOTH LOWER EXTREMITIES) Extremities: swelling (PLUS ONE PITTING EDEMA RIGHT AND LEFT PRETIBIAL REGION.) , No Barry's sign Neuro/Psych: normal mood/affect, oriented x 3 (AMBULATES WITH FWW NORMAL STEP AND STRIDE LENGTH. NO EVIDENCE OF KNEE OR ANKLE INSTABILITY. NO FOOT DROP.) ICD10 Worksheet Patient Problems: Problems Problem Status Onset Acute renal failure Acute Aspiration pneumonia Acute Pancreatitis, acute Acute Septic shock Acute
--- NOTE | 2018-09-04 10:26 | PDOREHIP ---
Admission [facility] - Admission - 3 Day Assessment Period Admission Date/Day 1: 08/27/18 Day 2: 08/28/18 Day 3: 08/29/18 - Active Diagnoses Comorbidities and Co-existing Conditions at Admission: 63711. DM (e.g. diabetic retinopathy, nephropathy, and neuropathy) (BLOOD SUGARS WELL CONTROLLED ON METFORMIN) - Skin Conditions # Stage 1 Pressure Ulcers-Admission: 0 # Stage 2 Pressure Ulcers-Admission: 0 # Stage 3 Pressure Ulcers-Admission: 0 # Stage 4 Pressure Ulcers-Admission: 0 # Unstageable Pressure Ulcers (Non-remove Dress)-Admission: 0 # Unstageable Pressure Ulcers (Slough/Eschar)-Admission: 0 # Unstageable Pressure Ulcers (Deep Tissue Injury)-Admission: 0 Discharge [facility] - Discharge - 3 Day Assessment Period 2 Days Prior to Anticipated Discharge Date: 09/03/18 1 Day Prior to Anticipated Discharge Date: 09/04/18 Anticipated Discharge Date: 09/05/18
--- NOTE | 2018-09-04 12:46 | GDS ---
ADMITTING DIAGNOSES: Debility, status post prolonged hospitalization for complex medical issues. DISCHARGE DIAGNOSES: Debility, status post prolonged hospitalization for complex medical issues. OTHER DISCHARGE DIAGNOSES: 1. Type 2 diabetes mellitus. 2. Diastolic congestive heart failure. 3. Hypertension. 4. Cognitive impairment with dysphagia, largely resolved at time of discharge. 5. Clostridium difficile colitis. COMPLICATIONS: None. CONSULTATIONS: None during inpatient rehabilitation stay. PREVIOUS CONSULTING PHYSICIANS: Nephrology, Dr. Blackmon; pulmonary/critical care, Dr. Mcpherson. PROCEDURES: None. HISTORY AND HOSPITAL COURSE: He was admitted from [facility] on , upon referral from Dr. Iverson. He was initially admitted to [facility] on 08/2018, for unresponsiveness. He was evaluated in the emergency department and found to have acute pancreatitis, metabolic acidosis, septic shock, respiratory failure, and renal failure. He had a pro longed hospital course with complications, including fluid overload and acute diastolic congestive he art failure, acute tubular necrosis, hypokalemia, hypoxia and respiratory failure, requiring intubati on and subsequently BiPAP, Clostridium difficile colitis, diabetes mellitus, treated with insulin and anemia. He was eventually medically stabilized and [facility] on 08/27/2018. Initial functional independe nce measure was 89 on 08/29/2018. He underwent comprehensive rehabilitation, including Physical and Occupational Therapy, as well as Speech and Language Pathology. He was evaluated by Speech and Langu age Pathology for cognitive impairment following hospital delirium and dysphagia. Initially scored 2 4/30 on the MoCA test. Was noted to have decreased executive function primarily, but also difficulty with memories and speech fluency. He was started on metformin 250 b.i.d. with meals, sliding scale insulin, and Lantus 5 mg q.a.m. and 15 q.p.m. His Lasix was initially increased to decrease fluid ov erload, with initial dose of 80 mg b.i.d. At the time of discharge, his Lasix was decreased to 120 m g daily. He continued with gradual diuresis and downward trending weights. He progressed nicely in all of his physical therapies, and on 09/03/2018, the Lantus was discontinued, and serial blood gluco se levels measured 121, 139, and 126. On the day prior to discharge, blood pressure was stable at 11 . Team conference was held on 09/03/2018, and he was noted to have a FIM score of 109. He was i ndependent in bed mobility, transfers, and independent in the room and ambulating without assistance using the FWW greater than 500 feet. He was modified independent with showering and did well with co oking skills. Speech Therapy indicated that he passed his test for executive activity. DISCHARGE PLAN: He will be discharged to home. Medically stable. Regular diet. He will require so me assistance with host/hostess head and possibly with activities that require higher executive functi on. DISCHARGE MEDICATIONS: Included lipase 1 p.o. t.i.d. with meals, Lasix 80 mg in the morning and 40 m g at 3 p.m., melatonin 3 mg p.o. q.h.s. p.r.n. insomnia, metformin 100 mg p.o. b.i.d. with meals, thi metzger 200 mg p.o. daily. DISCHARGE DISPOSITION: 1. Discharge to home. 2. He will have followup with his primary care physician within 1 week. 3. He will have outpatient physical therapy. 4. No outpatient occupational therapy. /[id number]/MODL
[2018-09-04] MEDS: MELATONIN 3 MG TAB PO SCH (20:57)
[2018-09-05 06:47] VITALS: BP 112/67
[2018-09-05] MEDS: metFORMIN HCL 500 MG TAB PO SCH (08:13)
[2018-09-05] MEDS: THIAMINE HCL 100 MG TAB PO SCH (08:13)
[2018-09-05] MEDS: INSULIN LISPRO 100 UNIT/ML SC SCH ×2 (08:14→11:58)
[2018-09-05] MEDS: FUROSEMIDE 40 MG TAB PO SCH (08:14)
[2018-09-05] MEDS: LIPASE 12,000/AMYLASE/PROTEASE (CREON) 1 CAP PO SCH ×2 (08:14→12:07)
--- NOTE | 2018-09-05 11:35 | SOAPPROG ---
SOAP Progress Note Assessment/Plan: Assessment: Debility status post prolonged hospitalization for critical illness. Currently independent in room with FWW. Probably will be advanced to independent on floor later today. * Initial functional independence measure is 89 on 08/29/2018. FIM SCORE FROM YESTERDAY IS TEAM CONFERENCE 109 * Has since advanced to independent in his room. Diallo balance inventory improved to 45 as of 08/31/2018. * Continue PT and OT to optimize mobility and activities of daily living toward the modified independent to independent level. Cognitive impairment following hospital delirium, and dysphagia. * Scored 24/30 on the MoCA. Has decreased executive function primarily but also difficulties with memory and lexical fluency. Will need supervision for money management and for medications. But he has attention issues raising concerns about safety with driving. IN FAMILY CONFERENCE TODAY, DISCUSSED WITH PATIENT AND HIS SISTER THAT PATIENT SHOULD BE CLEARED TO DRIVE DURING OUTPATIENT PHYSICAL THERAPY ASSESSMENT. 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 Diabetes mellitus type 2. Discussed with Nephrology: No contraindication currently to metformin given that he recently had lactic acidosis. * Metformin has been titrated from 250 mg twice daily to 850 mg twice daily during his stay. Tolerating well. Will increase to 1000 mg twice daily starting 09/01/2018. * DISCONTINUED LANTUS 7 UNITS LAST P.M.. THREE MOST RECENT BLOOD SUGARS WERE 121, 139 AND 126. THEREFORE PATIENT ADVISED THAT HE WILL NO LONGER NEED TO ADMINISTER THE LANTUS. HE VERBALIZED COMPREHENSION OF THIS. HE WILL CONTINUE CHECKING HIS BLOOD SUGARS AT HOME AFTER DISCHARGE. HE WILL HAVE FOLLOW-UP WITH HIS PRIMARY CARE PHYSICIAN WITHIN 1 WEEK AFTER DISCHARGE. Recent infection with Clostridium difficile colitis. He has had considerable improvement in his diarrhea since the addition of pancreatic enzymes. Will continue the pancreatic enzymes, 2 which diarrhea seemed to respond when he was in the hospital after treatment of C diff. He will have isolation precautions appropriate to Clostridium difficile. Fluid overload and likely diastolic congestive heart failure. He had an echocardiogram in the hospital, which was not sufficient for estimating diastolic function, however, systolic function was normal. He had a moderately elevated BNP consistent with congestive heart failure. His admission weight was 95 kg; after hydration for septic shock, on August 18, his weight was 123 kg, and upon admission to rehabilitation unit on 08/27/2008, his weight was 102 kg. So he had diuresed greater than 20 kg but was still 7 kg above his admission weight. Upon hospital admission, he was likely dehydrated. * Will follow daily weights. * Taper furosemide from 80 mg twice daily at 0900 and 1500 to 80 mg daily and 40 mg at 1500. CONTINUE LASIX 80 Q.A.M. AND 40 Q.P.M. PATIENT INFORMED THAT HE WILL CONTINUE TO DIURESE ON THE LASIX AND THIS WILL BE ADDRESSED BY HIS PRIMARY CARE PHYSICIAN FOLLOWING DISCHARGE. * Renal function overall stable, with stage III renal insufficiency, on labs 08/29/2018. Recheck 09/02/2018. SODIUM 135, POTASSIUM 4.2, BUN/CREATININE 19/1.4 History of hypertension, not currently hypertensive. He may benefit from initiation of antihypertensive medications once his fluid overload is fully treated as diuretic is tapered. BLOOD PRESSURE THIS MORNING 111/69 Prophylaxis. CURRENTLY AMBULATING 500 FT DAILY.. He is close to 3 weeks since his hospital admission. It seems unlikely that he needs any pharmacologic prophylaxis at present and I will not order any. He will have SCDs at night. He will be encouraged to ambulate to meals. DISPOSITION: HE WILL BE DISCHARGED TO HOME TODAY. HE WILL HAVE OUTPATIENT PHYSICAL THERAPY. SCRIPT WRITTEN FOR OUTPATIENT PHYSICAL THERAPY, OUTPATIENT SPEECH THERAPY AND OUTPATIENT OCCUPATIONAL THERAPY FOR DRIVING EVALUATION. HE WILL HAVE FOLLOW-UP WITH HIS PRIMARY CARE PHYSICIAN Lives [place] a ranch house in the [facility] with his brother. They are 13 steps to enter from the garage, or he can walk around the house and enter with no steps. Need to clarify regarding available supervision. He may not be comfortable with therapists coming to the home. DISCHARGE DATE SET FOR 09/05/2018. FOLLOW-UP: He will have follow up routinely with his primary care provider, Dr. César Hernández. He is to see manufacturing sr engineer, Dr. Toy Lema within 3 days of discharge from the rehabilitation unit. Plan: 09/03/18 12:48 09/03/18 12:50 09/04/18 10:00 09/05/18 11:34 Subjective: HE IS EAGER TO READY FOR HIS DISCHARGE TODAY. NO FURTHER COMPLAINTS. Objective: Vital Signs Temp Pulse Resp BP Pulse Ox 36.6 C 75 17 112/67 97 09/05/18 06:46 09/05/18 06:46 09/05/18 06:46 09/05/18 06:46 09/05/18 06:46 Laboratory Results 08/29/18 06:15 09/02/18 09:00 09/04/18 09/05/18 09/06/18 05:59 05:59 05:59 Intake Total 760 1710 Balance 760 1710 Physical Exam - Physical Exam General Appearance: WD/WN, alert, no apparent distress Respiratory: lungs clear, normal breath sounds Abdomen: normal bowel sounds, non-tender, soft Neuro/Psych: other (AMBULATES USING FWW. NORMAL STEP AND STRIDE LENGTH. NO ANKLE OR KNEE INSTABILITY. GOOD NEUTRAL POSTURE WHILE WALKING.) ICD10 Worksheet Patient Problems: Problems Problem Status Onset Acute renal failure Acute Aspiration pneumonia Acute Pancreatitis, acute Acute Septic shock Acute
== END 2018-09-05 13:12 | disposition home or self-care (01) | DRG 860 ==
LOC: BREH 15:38
PROVIDERS: ADMIT Internal Medicine; ATTEND Internal Medicine
DX: R41.89 Other symptoms and signs involving cognitive functions and awareness (principal); R41.844 Frontal lobe and executive function deficit; R13.10 Dysphagia, unspecified; R53.81 Other malaise; E11.9 Type 2 diabetes mellitus without complications; F10.288 Alcohol dependence with other alcohol-induced disorder; A04.72 Enterocolitis due to Clostridium difficile, not specified as recurrent; E87.70 Fluid overload, unspecified; I50.30 Unspecified diastolic (congestive) heart failure; I10 Essential (primary) hypertension; E66.01 Morbid (severe) obesity due to excess calories; D64.9 Anemia, unspecified
CPT/HCPCS: 92507-GN; 92523-GN; 92610-GN; 97110-GO; 97110-GP; 97112-GP; 97116-GP; 97162-GP; 97166-GO; 97530-GO; 97530-GP; 97535-GO; 99366-GN; 99366-GO; G0515-GO; J1815